=== PATIENT | male | born 1950 | race Caucasian/White ===

== ENCOUNTER → 2024-03-09 11:28 | Outpatient (REF) | payer OTHER, SELFPAY | LOC: HWRAD 11:28 | PROVIDERS: ATTENDING PHYSICIAN Internal Medicine Critical Care Medicine; FAMILY PHYSICIAN Family Medicine | DX: R09.02 Hypoxemia (principal) | CPT/HCPCS: 71250 ==

== ENCOUNTER 2024-08-05 16:51 | Inpatient (IN) | payer OTHER, SELFPAY ==
[2024-08-05] VITALS (11 sets, daily range): BP systolic 108–152; BP diastolic 49–108; BMI 27.9
--- NOTE | 2024-08-05 13:49 | ED.GENMED ---
History of Present Illness
General
Chief Complaint: Breathing Problem
Time Seen by Provider: 08/05/24 13:47
History of Present Illness
History of Present Illness:
TIME OF INITIAL ENCOUNTER: 1:45 PM
HPI: The patient comes in from home by ambulance. Family called due to shortness of breath and he was also feeling generally weak. He has a history of COPD and CHF. EMS noted wheezing and he was given a nebulizer treatment. He was also found to
have sats of 84% on his normal 2 to 3 L/min of oxygen. They also placed him on a nonrebreather prior to arrival and he now feels somewhat improved.
EXAM:
GENERAL: The patient is somewhat ill-appearing
HEENT: Moist oral mucosa
CARDIOVASCULAR: No murmurs, normal heart rate, regular rhythm, No chest wall tenderness
PULMONARY: Mild respiratory distress with conversational dyspnea, we took him off the nonrebreather mask, prolonged expiratory phase with wheeze diffusely
ABDOMEN: Soft with no peritoneal signs, no tenderness
NEUROLOGIC: Excellent strength all extremities, no coordination deficits
PSYCHIATRIC: Appropriate mental status, normal insight and judgement
EXTREMITIES: Nontender, 2+ bilateral lower extremity edema, moves all extremities equally
SKIN: No rash, no lesions
NUMBER AND COMPLEXITY OF PROBLEMS ADDRESSED AT THE ENCOUNTER
� Chronic conditions affecting care: COPD and CHF
� Acute Exacerbation and/or Progression of Chronic Illness: This is an acute exacerbation of a chronic problem
� Differential Diagnosis includes: COPD exacerbation, CHF exacerbation, ACS, Pneumonia
AMOUNT AND/OR COMPLEXITY OF DATA TO BE REVIEWED AND ANALYZED
� I performed an independent evaluation of and my interpretation is:
EKG:
CT:
X-rays: CXR suggests pulm vasc congestion
Laboratory Studies: WBC 10.9, Bicarb 42, gluc 222, BNP 2900
Other:
� Review of other/old records: The patient had a CAT scan of his chest due to hypoxia with COPD 5 months ago which showed nonspecific interstitial fibrotic changes, prior left upper lobectomy
� Clinical information was obtained by an independent historian: I spoke to EMS upon arrival
� Prescriptions/Medications Considered but not given:
� Further testing considered but not performed:
RISK OF COMPLICATIONS AND/OR MORBIDITY OR MORTALITY OF PATIENT MANAGEMENT
� Social determinants of health affecting care: Lives at home
� Discussion with other providers: Hospitalist for admission
� Escalation of care including admission/observation vs risk of discharge considered: Will give additional DuoNebs here as well as IV steroids.
ANY OTHER UPDATES:
4 PM: I reassessed patient. Overall sickly improved compared to time of arrival. We also gave Lasix as there likely is a component of heart failure as well.
Phy Exam
Physical Exam
Physical Exam:
See HPI
Scores
Heart Failure Risk
Heart Failure Risk Score: Not Applicable
Course
Orders/Labs/Results
Orders:
Orders
08/05/24 13:47
Dexamethasone Sod Phosphate [Decadron] 10 mg IV NOW STA
Ipratropium/Albuterol Sulfate [Duoneb] 3 ml INH R NOW ONE
Ipratropium/Albuterol Sulfate [Duoneb] 3 ml INH R NOW ONE
08/05/24 13:48
CR Chest Portable - 1 View Urgent
Comment:
Reason For Exam: sob copd chf
Reason Study Needs to be Portable: Patient Unstable
08/05/24 13:50
Complete Blood Count/With Diff Urgent
Comprehensive Metabolic Panel Urgent
NT-proBNP Urgent
Troponin I Urgent
08/05/24 15:40
Furosemide [Lasix] 40 mg IV NOW STA
08/05/24 16:19
Admit/Transfer Patient As Directed
Co-Sign Provider:
Level of Care: Inpatient admission
Assign to:: IMU- Intermediate Care
Physician / Group: Jose R
Diagnosis: Hypoxia, CHF
Reason for Hospitalization: IV diuretics
Expected length of stay greater than two midnights?: Yes
ELOS- Estimated Length of Stay in days: 3
I certify the patient meets the requirements for IP care: Yes
PRN Pain Medication Management As Directed
May give lesser potent ordered pain med per pt: Yes
preference::
Protocol:: Medication orders for pain may be administered in a
manner that supports deferring to patient preference
when the pt is:
- Requesting an ordered lesser potent pain medication.
Least to most potent pain medications are defined
as: acetaminophen < NSAID < tramadol < opioids
(morphine, oxycodone, hydromorphone).
- Requesting a lesser dose of the same medication IF
ORDERED.
- Requesting a less intrusive route of administration
if both routes are prescribed by the provider (PO <
IV).
08/05/24 16:25
Code Status As Directed
Resuscitation Status: Full Code
08/05/24 16:36
ECG [Electrocardiogram (*1)] Urgent
Reason for Study: Heart Failure, Left
Cardiology Consult: Johny Shaffer
08/05/24 16:45
Peripheral Venous Lwr Ext Bilat US [US Periph Venous LOWER Ext Donovan] Urgent
Comment:
Reason For Exam: bilateral lower extremity edema
08/05/24 20:00
Troponin I Q8H
08/06/24 04:00
Troponin I Q8H
Abnormal Lab Results
08/05/24
13:50
WBC 10.9 H 10^3/uL
(4.8-10.8)
RBC 4.42 L 10^6/uL
(4.70-6.10)
Hgb 10.8 L g/dL
(13.0-18.0)
Hct 37.8 L %
(39.0-52.0)
MCH 24.4 L pg
(27.0-31.0)
MCHC 28.6 L g/dL
(33.0-37.0)
RDW 14.8 H %
(11.5-14.5)
Abs Immat Gran (auto) 0.1 H 10^3/uL
(0-0.05)
Absolute Neuts (auto) 7.3 H 10^3/uL
(1.4-6.5)
Absolute Monos (auto) 1.1 H 10^3/uL
(0.1-0.6)
Immature Gran % 0.6 H %
(0-0.5)
Lymphocytes % 17.6 L %
(20.5-51.1)
Monocytes % 9.7 H %
(1.7-9.3)
Chloride 90 L mmol/L
(98-107)
Carbon Dioxide 42 H mmol/L
(22-30)
Glucose 222 H mg/dl
(70-99)
Albumin 3.2 L g/dl
(3.5-5.0)
08/05/24 13:50
08/05/24 13:50
Vital Signs
Initial and Last Documented VS:
Initial Vital Signs
Pulse Resp BP Pulse Ox
104 20 151/108 84
08/05/24 13:50 08/05/24 13:50 08/05/24 13:50 08/05/24 13:50
Last Documented Vital Signs
Temp Pulse Resp BP Pulse Ox
98.3 F 106 16 152/57 93
08/05/24 13:51 08/05/24 14:45 08/05/24 14:45 08/05/24 14:00 08/05/24 14:45
*Critical Care Note
Total Time (30-74mins, 75-104mins- exclusive of procedures): Not Applicable
ED Attending Note
-
Portions of this chart may have been created with voice recognition software.� Occasional wrong word or��sound alike� substitutions may have occurred due to the inherent limitations of voice recognition software.
Discharge Plan
Departure
Patient Disposition: Admit
Date of Disposition: 08/05/24
Time of Disposition: 15:58
Presentation/result/management discussed w/ accepting MD/DO: Hospitalist
Discharge Problem:
COPD exacerbation
Interventions
Interventions:
*Risk Screen - Suicide Last Done: 08/05/24 13:51
*General Assessment Last Done: 08/05/24 13:51
*Neglect/Abuse Screening Last Done: 08/05/24 13:51
ED- Fall Risk Assessment Last Done: 08/05/24 13:59
*ED COVID-19 Vaccine History Last Done: 08/05/24 14:00
ED- Cardiac Assessment Last Done: 08/05/24 13:59
ED- Pulmonary Assessment Last Done: 08/05/24 13:59
[2024-08-05] MEDS: DECADRON 10 MG IV (13:55)
[2024-08-05] MEDS: DUONEB 3 ML INH ×3 (13:56→19:37)
[2024-08-05 14:05] LABS: % Basophils 0.6 % (0-2); % Eosinophils 4.2 % (0-6); % Immature Granulocytes 0.6 % (0-0.5); % Lymphocytes 17.6 % (20.5-51.1); % Monocytes 9.7 % (1.7-9.3); % Neutrophils 67.3 % (42.2-75.2); Absolute Basophils 0.1 10^3/uL (0-0.2); Absolute Eosinophils 0.5 10^3/uL (0-0.7); Absolute Immature Granulocytes 0.1 10^3/uL (0-0.05); Absolute Lymphocytes 1.9 10^3/uL (1.2-3.4); Absolute Monocytes 1.1 10^3/uL (0.1-0.6); Absolute Neutrophils 7.3 10^3/uL (1.4-6.5); Hematocrit 37.8 % (39.0-52.0); Hemoglobin 10.8 g/dL (13.0-18.0); Mean Corp Hgb Conc. 28.6 g/dL (33.0-37.0); Mean Corpuscular Hgb 24.4 pg (27.0-31.0); Mean Corpuscular Volume 85.5 fL (80.0-94.0); Mean Platelet Volume 8.8 fL (7.4-10.4); Nucleated Red Blood Cells % 0 % (-); Platelet Count 343 10^3/uL (130-400); Red Blood Cell Count 4.42 10^6/uL (4.70-6.10); Red Cell Dist. Width 14.8 % (11.5-14.5); White Blood Cell Count 10.9 10^3/uL (4.8-10.8)
[2024-08-05 14:11] LABS: ALT (SGPT) 15 U/L (0-50); AST (SGOT) 28 U/L (17-59); Albumin 3.2 g/dl (3.5-5.0); Alkaline Phosphatase 94 U/L (38-126); Blood Urea Nitrogen 16 mg/dl (9-20); Calcium 8.8 mg/dl (8.4-10.2); Chloride 90 mmol/L (98-107); Estimated Creatinine Clearance 64 ml/min; Glucose 222 mg/dl (70-99); Potassium 4.1 mmol/L (3.5-5.1); Sodium 143 mmol/L (135-145); Total Bilirubin 0.3 mg/dl (0.2-1.3); Total Protein 6.4 g/dl (6.3-8.2); eGFR > 60.00
[2024-08-05 14:30] LABS: NT-proBNP 2900 pg/ml; Troponin I 0.028 ng/ml
[2024-08-05 15:13] LABS: Carbon Dioxide 42 mmol/L (22-30)
[2024-08-05] MEDS: LASIX 40 MG IV (15:52)
--- NOTE | 2024-08-05 16:22 | CON.CAR ---
Addendum entered and electronically signed by Johny Tolbert MD 08/05/24 17:52:
I saw and examined the patient.
The Infectious Disease Physician's note was reviewed and I agree with the note.
Comment: Briefly, 73-year-old man past medical history of heart failure with preserved ejection fraction, prior AVR, known CAD with prior [place], CVA with residual right-sided deficit as well as COPD on home O2 who presents with worsening dyspnea
concerning for decompensated heart failure.
The patient has told me that over the past several days he has developed mild lower extremity edema
Worsening dyspnea as well as orthopnea over this time
Appears volume overloaded on exam and proBNP is elevated all in keeping with CHF
Plan for IV diuresis twice daily
Follow daily weights, renal function/electrolytes
Check echo in a.m.
Tentative plan to interrogate pacemaker to assess for arrhythmia as a cause of his decompensation
Will reach out to his primary felt carbonizer to request records
Rest per Jami Anne
Original Note:
Consultation
Consultation Request
Date/Time Consultation Requested: 08/05/24
Date/Time Consultation Performed: 08/05/24
Requesting Provider: Nadeen Harley PA-C
Performing Provider: Jami Anne PA-C for Dr. Tolbert
Reason for Consultation: CHF
Medical History
-
Chief Complaint: SOB
History of Present Illness:
PMH:
chronic HFpEF
COPD/emphysema
h/o AVR 2010 and redo AVR with root repair 2012
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
CAD with MIs 2008, 2012, details unknown
AAA repair 2008
DM 2
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
Ambulatory dysfunction, walks with walker
s/p Medtronic PPM
Reported severe hemoptysis in setting of PNA 04/2024
RA on chronic prednisone
Daily narcotics for pain
Depression/anxiety
Past Medical History
Past Medical History: Other (in HPI)
Past Surgical History: Cardiac (AAA repair 2008, s/p AVR 2010, s/p AVR and root repair 2012, s/p Medtronic PPM 2012)
Social History
Tobacco: Former Smoker
Alcohol: None
Drug: Other (daily narcotics for pain control)
Personal:
Living: With Family
Employment: Retired
Family History
Family History: CAD
Allergies / Home Medications
Allergy/AdvReac Type Severity Reaction Status Date / Time
tetracycline Allergy Unknown Unknown Verified 08/05/24 14:26
adalimumab [From Humira] Allergy Unknown Verified 08/05/24 14:27
Cephalosporins Allergy Unknown Verified 08/05/24 13:49
clarithromycin Allergy Unknown Verified 08/05/24 14:26
doxycycline Allergy Unknown Verified 08/05/24 14:26
etanercept [From Enbrel] Allergy Unknown Verified 08/05/24 14:27
hydromorphone [From Dilaudid] Allergy Unknown Verified 08/05/24 14:26
infliximab [From Remicade] Allergy Unknown Verified 08/05/24 14:27
latex Allergy Unknown Verified 08/05/24 14:26
lorazepam Allergy Unknown Verified 08/05/24 14:26
methotrexate Allergy Unknown Verified 08/05/24 14:26
penicillin G Allergy Unknown Verified 08/05/24 13:49
Penicillins Allergy Unknown Verified 08/05/24 13:49
red dye Allergy Unknown Verified 08/05/24 14:26
Sulfa (Sulfonamide Allergy Unknown Verified 08/05/24 13:49
Antibiotics)
sulfamethoxazole Allergy Unknown Verified 08/05/24 14:26
[From Bactrim]
sulfisoxazole Allergy Unknown Verified 08/05/24 13:49
trimethoprim [From Bactrim] Allergy Unknown Verified 08/05/24 14:26
�Medication �Instructions �Recorded �Confirmed �Type
aspirin 81 mg tablet,delayed 81 mg PO DAILY 08/05/24 08/05/24 History
release
budesonide 160 mcg-glycopyr 9 2 inh inhalation R BID 08/05/24 08/05/24 History
mcg-formot 4.8 mcg/actuation HFA
inhaler (Breztri Aerosphere)
clopidogrel 75 mg tablet 75 mg PO DAILY 08/05/24 08/05/24 History
diazepam 5 mg tablet 5 mg PO QID 08/05/24 08/05/24 History
diltiazem HCl 240 mg 240 mg PO DAILY 08/05/24 08/05/24 History
capsule,extended release 24 hr
ezetimibe 10 mg tablet 10 mg PO HS 08/05/24 08/05/24 History
finasteride 5 mg tablet 5 mg PO DAILY 08/05/24 08/05/24 History
furosemide 40 mg tablet 40 mg PO DAILY 08/05/24 08/05/24 History
insulin aspart U-100 100 unit/mL 0 sliding scale dose SC MEALS 08/05/24 08/05/24 History
(3 mL) subcutaneous pen (Novolog
FlexPen U-100 Insulin aspart)
insulin glargine 100 unit/mL (3 15 - 30 unit SC HS 08/05/24 08/05/24 History
mL) subcutaneous pen (Lantus
Solostar U-100 Insulin)
methadone 10 mg tablet 20 mg PO BID 08/05/24 08/05/24 History
mirtazapine 30 mg disintegrating 30 mg translingual HS 08/05/24 08/05/24 History
tablet
omeprazole 20 mg capsule,delayed 20 mg PO DAILY 08/05/24 08/05/24 History
release
oxycodone 10 mg tablet 10 mg PO TID 08/05/24 08/05/24 History
paroxetine HCl 20 mg tablet 20 mg PO DAILY 08/05/24 08/05/24 History
pravastatin 20 mg tablet 20 mg PO HS 08/05/24 08/05/24 History
prednisone 10 mg tablet 10 mg PO DAILY 08/05/24 08/05/24 History
quetiapine 200 mg tablet 200 mg PO HS 08/05/24 08/05/24 History
roflumilast 500 mcg tablet 500 mcg PO DAILY 08/05/24 08/05/24 History
tamsulosin 0.4 mg capsule 0.4 mg PO HS 08/05/24 08/05/24 History
Review of Systems
-
History Source: Patient and Family
All other systems: Negative unless noted
Physical Exam
Vital Signs
Temp Pulse Resp BP Pulse Ox
98.3 F 106 16 152/57 93
08/05/24 13:51 08/05/24 14:45 08/05/24 14:45 08/05/24 14:00 08/05/24 14:45
Lab Results
08/05/24 13:50
08/05/24 13:50
Troponin I 0.028 ng/ml 08/05/24 13:50
Gkw-H-Jihhxqlolbj Pept 2900 pg/ml 08/05/24 13:50
Physical Exam
General: No Apparent Distress and Other (chronically ill appearing. on supp O2)
HEENT: Normocephalic, Anicteric and Moist Mucous Membranes
Respiratory: Wheezes
Cardiac: S1/S2 and Regular Rhythm
GI: Soft, Non Tender and Distended (mild)
Musculoskeletal: No Clubbing, No Cyanosis and Edema (1+ edema of B/L LE)
Skin: Warm, Dry and Other (thin skin with ecchymoses consistent with chronic steroid use)
Neuro: AO x 3
Impression / Plan
-
PCP: Dr. Cassia Mckeon
Cardiology: Dr. Edmonds at [facility]
Impression:
Acute on chronic hypoxic respiratory failure, chronically on 2-3L NC
Acute on chronic HFpEF
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
h/o AVR 2010 and redo AVR with root repair 2012
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
CAD with MIs 2012, details unknown
AAA s/p EVAR 2008
PAF, not OAC candidate given reported severe hemoptysis in setting of PNA 04/2024
DM 2
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
Ambulatory dysfunction, walks with walker
heart block s/p Medtronic PPM
RA on chronic prednisone
Daily narcotics for pain
Depression/anxiety
Echo 04/27/24 at [facility]: TDS, EF 55-60, mild concentric LVH, aortic valve not well visualized, ascending aorta mildly dilated at 3.6 cm, trivial pericardial effusion
Plan:
-[facility] with increased SOB and dizziness starting last evening and is being admitted with acute HF and cardiology has been consulted. Patient lives in [place] and follows with Dr. Edmonds at [facility], patient has never been to
before. Patient is chronically on aspirin and Plavix for h/o CVA. He was not felt to be candidate for OAC given hemoptysis in setting of PNA 04/2024. He is also felt to be high risk candidate for watchman. Patient is chronically on Lasix 40 mg PO
daily, EF preserved by last echo 04/2024 as above. pro-BNP is 2900 and CXR with vascular congestion. He reports some LE edema and wheezing. Patient is chronically on oxygen at 2 L NC, but initially required NRB in ER, now requiring 5 L. Patient also
reportedly has a history of AVR in 2010 followed by redo AVR and aortic root repair in 2012 that was complicated by [place] and NATA with transient dialysis for months, but renal function recovered. He also had his Medtronic PPM placed at that time.
-Obtained and reviewed records from Dr. Edmonds' office including last echo 04/27/24, EKG and office visit 06/11/24.
-Will interrogate Medtronic PPM
-Check echo, last from 04/2024 as above
-ECG not ordered in the ER, will order now and then review
-IV lasix. prior to admission was on 40mg po daily, however this was decreased from 80mg daily as of 04/2024 per .
-continue treatment for COPD per primary service. not BB candidate due to COPD.
-CHF education
-wean supp O2 as able
-PT/OT
-d/w patient and at bedside
Data Reviewed
-
Radiology: Report Reviewed by me
Medical Tests (Nuc Med, Echo etc): Report Reviewed by me
Labs: Labs Reviewed by me
Old Records: Requested and Reviewed
--- NOTE | 2024-08-05 16:41 | HPS.HSE ---
Addendum entered and electronically signed by Abhijit Odell MD 08/05/24 17:07:
I saw and examined the patient.
The JOB SITE SUPERVISOR's note was reviewed and I agree with the note.
Comment:
73-year-old male with extensive past medical history of recent CVA, CHF, hypertension, diabetes, chronic hypoxic respiratory deficiency, severe COPD who is presenting from home with shortness of breath. Patient was found to be severely hypoxic at
home. Patient spouse called EMS and patient was seen in the ER. Patient was found to severe lower extremity edema. Patient stated his breathing is improved after receiving bronchodilators steroids and IV Lasix. Patient is unsteady on his feet
and is unable to weigh himself daily.
General: Well Developed and Well Nourished, waking up and starting to have Conversation
HEENT: Anicteric, Moist mucous membranes and Oxygen (Nasal Cannula)
Respiratory: Other (Decreased breath sounds throughout; Few faint wheezes)
Cardiac: S1/S2, Regular Rhythm and Murmur
GI: Soft and Non Tender
Rectal: Deferred by Provider
Musculoskeletal: No Clubbing, No Cyanosis and Other (+2 pitting edema bilateral lower extremities)
Skin: Warm, Dry and Other (Significant bruising bilateral upper extremities)
Neuro: Chronic right hemiparesis, waking up now and states he wants water. following commands
Psych: Calm
Impression
Acute on chronic hypoxic respiratory failure likely multifactorial secondary to COPD exacerbation and acute on chronic heart failure exacerbation
History of severe COPD with suspected chronic hypercapnic respiratory failure
Stroke with residual deficit
Hypertension
Hyperlipidemia
Diabetes mellitus insulin-dependent
Anxiety/depression
Rheumatoid arthritis
Chronic steroid therapy
BPH
Chronic opioid dependent on daily basis
Plan
Start patient 40 mg IV Lasix twice daily
Check echocardiogram
Trend troponin
Wean oxygen as ordered
Start patient on high-dose steroids
Continue with bronchodilators
Pulmonary evaluation
Chest x-ray noted
As patient acute on chronic hypoxic respiratory failure hold high-dose of Seroquel/diazepam and change oxycodone to as needed
Check lower extremity venous Doppler
Continue with antiplatelet agents
Monitor on telemetry for arrhythmias
Full code
Monitor in IMU for 24 hours and reevaluate
I spent a total of 78 minutes with the patient or on the floor. More than 50% of this time involved counseling and coordination of care.
Original Note:
Family Physician
-
Family Physician: Cassia Mckeon
Chief Complaint
-
Shortness of Breath
History of Present Illness
Patient is a 73 y/o male past medical history of Stroke, CHF, HTN, DM, and Chronic Hypoxia secondary to Severe COPD who presents with shortness of breath. Most of history is obtained from patient's at the bedside. This morning patient was
more difficult to arouse and appeared short of breath. She noted his pulse ox to be in the 50s. She attempt to place him on his BiPAP without much improved in pulse ox only up to the 60s. She increased his supplemental oxygen and was able to get
his pulse ox up to 85%. After discussion with his physician she called EMS to bring him to the emergency department. Spouse has noted increased lower extremity edema for the past few days. Patient does not weight himself regularly as he is very
unsteady on his feet. Spouse notes that patient's diuretic dose was decreased over the summer. Patient denies any chest pain.
Medical History
Past Medical History
Past Medical History: Reports Other
Additional Past Medical History:
Stroke with Residual Right Hemiparesis
Abdominal Aortic Aneurysm
Congestive Heart Failure
Essential Hypertension
Hyperlipidemia
Diabetes Mellitus, Type II
COPD
Anxiety/Depression
Cognitive Impairment
Rheumatoid Arthritis
Chronic Pain with Opioid Dependence
BPH
Past Surgical History: Reports Other
Additional Past Surgical History:
AAA Repair
Aortic Valve Replacement
Permanent Pacemaker
Bilateral Cataracts
Social History
Tobacco: Former Smoker (40 pack years - Quit about 5 years ago)
Alcohol: Former (Sober since 1978)
Personal:
Living: With Family
Family History
Family History: Not pertinent
Allergies / Home Medications
Allergies reflects when Allergies were last updated in [facility] EHR.
Home Medications with original date entered in [facility] EHR
Allergy/Medication List:
Allergies
Allergy/AdvReac Type Severity Reaction Status Date / Time
tetracycline Allergy Unknown Unknown Verified 08/05/24 14:26
adalimumab [From Humira] Allergy Unknown Verified 08/05/24 14:27
Cephalosporins Allergy Unknown Verified 08/05/24 13:49
clarithromycin Allergy Unknown Verified 08/05/24 14:26
doxycycline Allergy Unknown Verified 08/05/24 14:26
etanercept [From Enbrel] Allergy Unknown Verified 08/05/24 14:27
hydromorphone [From Dilaudid] Allergy Unknown Verified 08/05/24 14:26
infliximab [From Remicade] Allergy Unknown Verified 08/05/24 14:27
latex Allergy Unknown Verified 08/05/24 14:26
lorazepam Allergy Unknown Verified 08/05/24 14:26
methotrexate Allergy Unknown Verified 08/05/24 14:26
penicillin G Allergy Unknown Verified 08/05/24 13:49
Penicillins Allergy Unknown Verified 08/05/24 13:49
red dye Allergy Unknown Verified 08/05/24 14:26
Sulfa (Sulfonamide Allergy Unknown Verified 08/05/24 13:49
Antibiotics)
sulfamethoxazole Allergy Unknown Verified 08/05/24 14:26
[From Bactrim]
sulfisoxazole Allergy Unknown Verified 08/05/24 13:49
trimethoprim [From Bactrim] Allergy Unknown Verified 08/05/24 14:26
Home Medications
aspirin 81 mg tablet,delayed release 81 mg PO DAILY 08/05/24
budesonide 160 mcg-glycopyr 9 mcg-formot 4.8 mcg/actuation HFA inhaler (Breztri Aerosphere) 2 inh inhalation R BID 08/05/24
clopidogrel 75 mg tablet 75 mg PO DAILY 08/05/24
diazepam 5 mg tablet 5 mg PO QID 08/05/24
diltiazem HCl 240 mg capsule,extended release 24 hr 240 mg PO DAILY 08/05/24
ezetimibe 10 mg tablet 10 mg PO HS 08/05/24
finasteride 5 mg tablet 5 mg PO DAILY 08/05/24
furosemide 40 mg tablet 40 mg PO DAILY 08/05/24
insulin aspart U-100 100 unit/mL (3 mL) subcutaneous pen (Novolog FlexPen U-100 Insulin aspart) 0 sliding scale dose SC MEALS 08/05/24
insulin glargine 100 unit/mL (3 mL) subcutaneous pen (Lantus Solostar U-100 Insulin) 15 - 30 unit SC HS 08/05/24
methadone 10 mg tablet 20 mg PO BID 08/05/24
mirtazapine 30 mg disintegrating tablet 30 mg translingual HS 08/05/24
omeprazole 20 mg capsule,delayed release 20 mg PO DAILY 08/05/24
oxycodone 10 mg tablet 10 mg PO TID 08/05/24
paroxetine HCl 20 mg tablet 20 mg PO DAILY 08/05/24
pravastatin 20 mg tablet 20 mg PO HS 08/05/24
prednisone 10 mg tablet 10 mg PO DAILY 08/05/24
quetiapine 200 mg tablet 200 mg PO HS 08/05/24
roflumilast 500 mcg tablet 500 mcg PO DAILY 08/05/24
tamsulosin 0.4 mg capsule 0.4 mg PO HS 08/05/24
Review of Systems
-
Unable to obtain full review of systems at this time due to: Acuity
Physical Exam
Vital Signs
Vital Signs
Temp Pulse Resp BP Pulse Ox
98.3 F 106 16 152/57 93
08/05/24 13:51 08/05/24 14:45 08/05/24 14:45 08/05/24 14:00 08/05/24 14:45
Physical Exam
General: Well Developed and Well Nourished
HEENT: Anicteric, Moist mucous membranes and Oxygen (Nasal Cannula)
Respiratory: Other (Decreased breath sounds throughout; Few faint wheezes)
Cardiac: S1/S2, Regular Rhythm and Murmur
GI: Soft and Non Tender
Rectal: Deferred by Provider
Musculoskeletal: No Clubbing, No Cyanosis and Other (+3 pitting edema bilateral lower extremities)
Skin: Warm, Dry and Other (Significant bruising bilateral upper extremities)
Neuro: Other (Patient opens his eyes to name, but drifts off quickly. Chronic right hemiparesis)
Psych: Calm
Laboratory Results
-
08/05/24 13:50
08/05/24 13:50
Laboratory Results
Total Bilirubin 0.3 mg/dl (0.2-1.3) 08/05/24 13:50
AST 28 U/L (17-59) 08/05/24 13:50
ALT 15 U/L (0-50) 08/05/24 13:50
Alkaline Phosphatase 94 U/L (38-126) 08/05/24 13:50
Troponin I 0.028 ng/ml 08/05/24 13:50
Chest X-Ray:
1. Mild interstitial prominence suggestive of pulmonary vascular congestion.
2. Patchy bibasilar opacities, right greater than left. Findings may be reflective of alveolar pulmonary edema, pneumonia, or subsegmental atelectasis.
Data Reviewed
-
Diagnostic Radiology: Report Reviewed by me
Lab Data: Labs Reviewed by me
Impression/Plan
-
Acute on Chronic Hypoxic Respiratory Failure secondary to Acute Heart Failure +/- COPD Exacerbation
-Continue supplemental oxygen
Acute on Chronic Heart Failure, unknown type
-Consult Cardiology
-Check Echocardiogram
-Check lower extremity Doppler
-Continue Lasix 40mg IV BID
-Monitor Is&Os and Daily Weights
Severe COPD, possible component of acute exacerbation
-Consult Pulmonary
-Patient received Decadron 10mg IV in ED - Transition to Prednisone 40mg Daily
-Continue Pulmicort Neb
-Continue DuoNeb QID and PRN
Stroke with Residual Right Hemiparesis
-Continue Aspirin and Plavix
Essential Hypertension
-Continue Diltiazem
Hyperlipidemia
-Continue Zetia and Pravastatin
Diabetes Mellitus, Type II
-Continue Lantus and NovoLog
-Monitor sugars and continue coverage insulin
Anxiety/Depression/Insomnia
-Hold diazepam and Seroquel until patient is more awake
-Continue Remeron and Paxil
Rheumatoid Arthritis
Chronic Pain with Opioid Dependence
-Continue methadone
-Change oxycodone to prn until mentation improves
BPH
-Continue finasteride and Flomax
Hx Abdominal Aortic Aneurysm s/p Repair
Code Status: Full Code
--- NOTE | 2024-08-05 18:41 | PTCARENOTE ---
Pt received from ED on stretcher. Aox2, not place. Wound care completed, consult placed to [facility] nurse for middle back wound. Pt reports he has had wound over 30 years and is unsure of origin.
[2024-08-05] MEDS: PULMICORT 0.5 MG INH (19:37)
[2024-08-05 20:36] LABS: Troponin I 0.037 ng/ml
--- NOTE | 2024-08-05 20:45 | PTCARENOTE ---
troponin of 0.037. FREIGHT TALLIER notified. Pt denies chest pain. Pt AAOx3. EKG obtained and repeat troponin placed for 0200.
--- NOTE | 2024-08-05 20:45 | PTCARENOTE ---
Pt had ordered insulin listed in the MAR scheduled for 18:10, these being 5 units of novolog and SC novolog, that had not yet been administered when receiving Pt at change of shift. Before administering the ordered insulin, this RN preformed a
bedside accu check, to which the results read 'RR HIGH', this RN notified the PHLEBOTOMIST, and placed a venous glucose lab order per protocol.
[2024-08-05 20:47] LABS: Glucose - Point of Care 462 mg/dl (70-99)
[2024-08-05 21:35] LABS: Glucose 505 mg/dl (70-99)
[2024-08-05] MEDS: NOVOLOG FLEXPEN SC (21:50)
[2024-08-05] MEDS: NOVOLOG FLEXPEN 14 UNITS SC (21:51)
[2024-08-05] MEDS: NOVOLOG FLEXPEN-HIGH RESISTANCE SC (21:51)
--- NOTE | 2024-08-05 21:51 | PTCARENOTE ---
Venous Glucose 505. MANAGER ASSEMBLY notified. order received for 1 time dose for 14 units of novolog. medication administered. Per protocol bedside glucose is to be rechecked in 2 hours from administration.
[2024-08-05] MEDS: LOVENOX 40 MG SC (22:06)
[2024-08-05] MEDS: DOLOPHINE 20 MG PO (22:08)
[2024-08-05] MEDS: PRAVACHOL 20 MG PO (22:38)
[2024-08-05] MEDS: ZETIA 10 MG PO (22:38)
[2024-08-05] MEDS: LANTUS 0.15 UNITS SC (22:38)
[2024-08-05] MEDS: FLOMAX 0.4 MG PO (22:38)
[2024-08-05 22:43] LABS: Glucose - Point of Care 490 mg/dl (70-99)
[2024-08-05] MEDS: REMERON ODT 30 MG PO (23:21)
[2024-08-06] VITALS (17 sets, daily range): BP systolic 82–137; BP diastolic 54–108; PULSE 89–93; O2SAT 91–92; BMI 27.2; BMI 27.9
[2024-08-06] LABS: Glucose - Point of Care 466 mg/dl (70-99)
[2024-08-06 00:44] LABS: Glucose 453 mg/dl (70-99)
[2024-08-06] MEDS: NOVOLOG FLEXPEN 12 UNITS SC (01:16)
[2024-08-06 02:40] LABS: Troponin I 0.019 ng/ml
[2024-08-06 03:39] LABS: Glucose - Point of Care 353 mg/dl (70-99)
[2024-08-06 05:23] LABS: Hematocrit 32.2 % (39.0-52.0); Hemoglobin 9.6 g/dL (13.0-18.0); Mean Corp Hgb Conc. 29.8 g/dL (33.0-37.0); Mean Corpuscular Hgb 24.6 pg (27.0-31.0); Mean Corpuscular Volume 82.6 fL (80.0-94.0); Platelet Count 315 10^3/uL (130-400); Red Cell Dist. Width 14.6 % (11.5-14.5); White Blood Cell Count 5.3 10^3/uL (4.8-10.8)
[2024-08-06 05:44] LABS: Blood Urea Nitrogen 21 mg/dl (9-20); Calcium 8.4 mg/dl (8.4-10.2); Chloride 88 mmol/L (98-107); Estimated Creatinine Clearance 72 ml/min; Glucose 297 mg/dl (70-99); Magnesium 2.1 mg/dl (1.6-2.3); Potassium 4.4 mmol/L (3.5-5.1); Sodium 140 mmol/L (135-145); eGFR > 60.00
[2024-08-06 06:04] LABS: Carbon Dioxide 44 mmol/L (22-30)
[2024-08-06 06:13] LABS: TSH Reflex To Free T4 0.33 uIU/ml (0.47-4.68)
[2024-08-06 06:42] LABS: Free T4 1.12 ng/dl (0.78-2.19)
[2024-08-06] MEDS: DUONEB 3 ML INH ×3 (07:14→19:17)
[2024-08-06] MEDS: PULMICORT 0.5 MG INH ×2 (07:15→19:17)
[2024-08-06 08:08] LABS: Glucose - Point of Care 232 mg/dl (70-99)
[2024-08-06] MEDS: NOVOLOG FLEXPEN 5 UNITS SC (08:11)
[2024-08-06] MEDS: NOVOLOG FLEXPEN-HIGH RESISTANCE 4 UNITS SC ×3 (08:11→16:23)
[2024-08-06] MEDS: CARDIZEM CD 240 MG PO (08:12)
[2024-08-06] MEDS: ASPIR LOW (ENTERIC COATED) 81 MG PO (08:13)
[2024-08-06] MEDS: DALIRESP 500 MCG PO (08:13)
[2024-08-06] MEDS: DOLOPHINE 20 MG PO ×2 (08:13→19:35)
[2024-08-06] MEDS: PROTONIX 40 MG PO (08:13)
[2024-08-06] MEDS: DELTASONE 40 MG PO (08:13)
[2024-08-06] MEDS: PAXIL 20 MG PO (08:13)
[2024-08-06] MEDS: PLAVIX 75 MG PO (08:13)
[2024-08-06] MEDS: LASIX 40 MG IV ×2 (08:14→16:20)
[2024-08-06] MEDS: PROSCAR 5 MG PO (08:14)
--- NOTE | 2024-08-06 08:32 | PN.DE.MGMTRT ---
Insulin Management
- -
08/06/2024 Diabetes Management Consult
Patient admitted with c/o SOB/weakness - COPD exacerbation with chf. PMH: COPD, CHF, diabetes, CAD with prior TX, CVA with R sided residual deficit, daily narcotic us for pain control, depression/anxiety.
Prior to admission patient was taking 15 to 30 units of lantus @ HS with ss novolog AC. A1C pending, cr .8, eGFR > 60.
Patient was off the unit for testing, I spoke with patient . She states she gives patient all insulin and tests his glucose. She states sometimes she give lantus 15 @ hs but if glucose is elevated she may give him 30 units. The novolog she
uses a ss.
08/05 glucose range 222 to 505. Patient received one time dose of 10 mg dexamethasone @ 2pm and one time doses of novolo:30 glucose 490 received 14 units novolog, 12:08am glucose 453 received 12 units novolog; and Lantus 15 units @ HS.
08/06 Fasting glucose 232 received 5 units novolog + corrective insulin 4 units, pre lunch glucose 221. Patient ordered prednisone [address] Odell has increased AC novolog to 9 units and HS lantus to 22 units.
Will follow.
Diabetes History
- -
Type of Diabetes: 2 requiring insulin
Pre-Admission Diabetes Regimen
08/05/24 08/06/24
13:50 05:06
Creatinine 0.9 0.8
Insulin Pump Settings
IP Diabetes Regimen
08/05/24 08/05/24 08/05/24
13:50 20:36 21:13
Glucose 222 H 505 H*
POC Glucose 462 H*
08/05/24 08/05/24 08/06/24
22:30 23:50 00:08
Glucose 453 H*
POC Glucose 490 H* 466 H*
08/06/24 08/06/24 08/06/24
03:28 05:06 07:57
Glucose 297 H
POC Glucose 353 H 232 H
Patient Education
[2024-08-06 08:38] LABS: Glycohemoglobin (HgbA1c) 6.7 % (4.0-5.6)
--- NOTE | 2024-08-06 09:25 | WOUNDNOTE ---
[facility] RN note: Patient admitted with hypoxia, CHF. Patient lives with his spouse.
See H&P for complete history.
PMH: CVA, CHF, IDDM, HTN, COPD, RA, anxiety/depression, on chronic steroid therapy, BPH, chronic opioid use, former smoker, former ETOH use, obesity.
Wound Location and type/assessment: Patient admitted with: mid back depressed scar from previous cyst with matter in it. Does not appear to be an active cyst. Coccyx/buttocks skin dull red/purple. Sacral/coccyx blanchable dull purple. Mild scrotal
MASD. L lateral ankle blanchable red. +1 LE edema. Toes warm. R wrist dermal skin tear.
Appetite: on a 2000 calorie 2 gm Sodium diet.
Pressure redistribution devices in place: [employer] air bed. Patient assists with turning.
Plan: Sacral shaped silicone border foam maintained on sacrum. Protective silicone border foam applied to L lateral ankle. Back depressed scar cleansed gently with a cotton tipped applicator to remove debris. Protective silicone border foam
reapplied to back. Patient incontinent of large amount of urine. Alya care given by PCT Broderick and lazara changed with help from PCT Castillo. Air chair cushion given. Patient turned with help from MARIA A Driscoll. Suggested to patient to follow up with his
coordinate measuring machine operator.
Care plan to be updated, will sign off. Call if needed.
--- NOTE | 2024-08-06 09:37 | WOUNDNOTE ---
SACRAL/BUTTOCKS (BLANCHABLE DULL PURPLE)
--- NOTE | 2024-08-06 09:38 | WOUNDNOTE ---
BACK (SUSPECT IS A CRATER SCAR, NO DRAINAGE)
--- NOTE | 2024-08-06 10:00 | W.PN.CARDCBS ---
Addendum entered and electronically signed by Onel Oro MD 08/06/24 12:12:
I saw and examined the patient.
The Pole Peeling Machine Operator Helper's note was reviewed and I agree with the note.
Comment:
GEN: No distress, awake, Ox3
HEENT: supple, anicteric, mmm
LUNGS: bilat rhonchi
CV: Reg, S1/S2, 1/6 syst LSB, no gallop
ABD: soft, BS+, NT/ND
EXT: + edema
NEURO: Gross non-focal
SKIN: No rash
Plan:
Would continue IV diuresis. Check echo today.
Appreciate pulmonary input regarding amiodarone. Cont prednisone and COPD tx.
His device check does have significant atrial arrhythmias. Will attempt to increase diltiazem first. If he has further A-fib on the monitor would start amiodarone.
His pacemaker battery is also at end-of-life. Discussed case with primary bacon skinner at [place]. We will proceed with generator change here at [facility].
Continue aspirin, Plavix, pravastatin and Zetia.
He was not fully anticoagulated because of hemoptysis.
Original Note:
Today's Communication / Plan
-
continue IV diuresis
echo pending
await [facility] report
wean supp O2
Impression / Plan
-
PCP: Dr. Cassia Mckeon
Cardiology: Dr. Edmonds at [facility]
Impression:
Acute on chronic hypoxic respiratory failure, chronically on 2-3L NC
Acute on chronic HFpEF
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
h/o AVR 2010 and redo AVR with root repair 2012
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
CAD with MIs 2008, 2012, details unknown
AAA s/p EVAR 2008
PAF, not OAC candidate given reported severe hemoptysis in setting of PNA 04/2024
DM 2
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
Ambulatory dysfunction, walks with walker
heart block s/p Medtronic PPM
RA on chronic prednisone
Daily narcotics for pain
Depression/anxiety
Echo 04/27/24 at [facility]: TDS, EF 55-60, mild concentric LVH, aortic valve not well visualized, ascending aorta mildly dilated at 3.6 cm, trivial pericardial effusion
Plan:
-Patient presented with worsening shortness of breath and lower extremity edema.
-Likely multifactorial. Being treated for COPD exacerbation as well as acute heart failure
-Diuresing well with IV Lasix, continue. Creatinine stable. prior to admission was on 40mg po daily, however this was decreased from 80mg daily as of 04/2024 per .
-Will review [facility] pacemaker interrogation from 08/05/2024
-Echo pending
-in asensed vpaced rhythm on review of tele overnight
-continue treatment for COPD per primary service. not BB candidate due to COPD.
-he is on asa, plavix as OP. not felt to be OAC candidate given significant hemoptysis in setting of PNA earlier this year
-CHF education
-wean supp O2 as able
-PT/OT
PREADMIT DATA:
-[facility] with increased SOB and dizziness starting last evening and is being admitted with acute HF and cardiology has been consulted. Patient lives in [place] and follows with Dr. Edmonds at [facility], patient has never been to
before. Patient is chronically on aspirin and Plavix for h/o CVA. He was not felt to be candidate for OAC given hemoptysis in setting of PNA 04/2024. He is also felt to be high risk candidate for watchman. Patient is chronically on Lasix 40 mg PO
daily, EF preserved by last echo 04/2024 as above. pro-BNP is 2900 and CXR with vascular congestion. He reports some LE edema and wheezing. Patient is chronically on oxygen at 2 L NC, but initially required NRB in ER, now requiring 5 L. Patient also
reportedly has a history of AVR in 2010 followed by redo AVR and aortic root repair in 2012 that was complicated by VT and NATA with transient dialysis for months, but renal function recovered. He also had his Medtronic PPM placed at that time.
Progress Note - E Business Specialist
Subjective
Date of Service: August 06, 2024
reports slept well. states good urine output with IV lasix
Objective
Labs:
08/06/24 05:06
08/06/24 05:06
Labs
Hgb 9.6 g/dL (13.0-18.0) L 08/06/24 05:06
Hct 32.2 % (39.0-52.0) L 08/06/24 05:06
Plt Count 315 10^3/uL (130-400) 08/06/24 05:06
Sodium 140 mmol/L (135-145) 08/06/24 05:06
Potassium 4.4 mmol/L (3.5-5.1) 08/06/24 05:06
BUN 21 mg/dl (9-20) H 08/06/24 05:06
Creatinine 0.8 mg/dL (0.7-1.3) 08/06/24 05:06
Glucose 297 mg/dl (70-99) H 08/06/24 05:06
Troponins
08/05/24 08/05/24 08/05/24
03:00 13:50 19:59
Troponin I Cancelled 0.028 0.037 H* D
08/06/24 08/06/24 08/06/24
02:06 04:00 08:00
Troponin I 0.019 D Cancelled Cancelled
Vital Signs and I&O:
Vital Signs
Temp Pulse Resp BP Pulse Ox
97.8 F 83 10 126/55 97
08/06/24 07:53 08/06/24 08:14 08/06/24 07:18 08/06/24 08:14 08/06/24 07:18
Vital Signs
Temp Pulse Resp BP Pulse Ox
97.8 F 83 10 126/55 97
08/06/24 07:53 08/06/24 08:14 08/06/24 07:18 08/06/24 08:14 08/06/24 07:18
Intake & Output
08/04/24 08/05/24 08/06/24 08/07/24
07:59 07:59 07:59 07:59
Output Total 700 / 700
Balance -700 / -700
Physical Exam
Physical Exam
GEN: No distress, awake, alert, oriented x3. on supp O2. chronically ill appearing
HEENT: supple, anicteric, mmm, eomi
LUNGS: Few wheezes B/L
CV: Reg, S1/S2, 1/6 syst LSB
ABD: soft, BS+, NT/ND
EXT: No cyanosis, clubbing. 1+ edema of B/L LE
NEURO: Gross non-focal
SKIN: Warm, pink, dry. No rash. Ecchymoses of B/L UE
--- NOTE | 2024-08-06 10:12 | W.CARD.DEVCH ---
Cardiac Device Check
-
Device: Pacemaker
Delivery Driver: Medtronic
The patient's device was interrogated with assistance of the device outside industrial sales representative. The device had normal function. ~1 month of battery life remaining on device. also with 4695 episodes of high atrial rate with several over the last 3 days.
--- NOTE | 2024-08-06 10:20 | W.PN.UPDATE ---
Update Note
Progress Note Update
device interrogation from ER with 4695 episodes of high atrial rate. will consult pulmonary to assess if patient ok for amiodarone given known lung disease. device also aty SAIRA with ~ 1 month of battery remaining. called Dr. Edmonds's office and
nothing presently scheduled regarding generator change. left message for him to call us back to discuss timing of generator change - during this admission with us vs with AMS as OP once DC'd.
reviewed with Dr. Edmonds via telephone. he was ok with generator change while admitted. will tentatively plan for Friday 08/10 and discuss with EP. also reviewed paroxysms of atrial arrhythmia noted on device interrogation. he was hesitant about
proceeding with amiodarone. will have pulm weigh in on amiodarone from standpoint of patient's lung disease. we agreed to start with uptitration of cardizem and will follow on tele while admitted.
--- NOTE | 2024-08-06 10:43 | CON.PUL ---
Consultation
Consultation Request
Date/Time Consultation Requested: 08/06/2024-8 AM
Date/Time Consultation Performed: 08/06/2024-8:30 AM
Requesting Provider: Cardiology
Performing Provider: Dr. Deleon
Reason for Consultation: Shortness of breath
Medical History
-
Chief Complaint: Shortness of breath
History of Present Illness:
73-year-old male with history of COPD, obstructive sleep apnea, former smoker quit 6 years ago [address] Dr[address] Canada who also has a history of heart failure with preserved EF and known CAD presented with increasing shortness of breath and
decompensated heart failure-pulmonary consulted for possible amiodarone need for recurrent atrial tachycardia and COPD 08/06/2024. Patient states that he does feel somewhat better than yesterday. Continues to have some shortness of breath. Does
not complain of any wheezing, chest pain, chest tightness, productive cough, abdominal pain, nausea, or increased lower extremity swelling from his baseline.
Past Medical History
Past Medical History: None (COPD on oxygen. Former smoker. MYKE on CPAP. CAD. AVR 2010 and redo with root repair 2012. PPM-2012. Atrial tachycardia. AAA 2008. Diabetes. 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 ADL dysfunction.
RA on chronic prednisone. Chronic pain/narcotics. Depression. Anxiety.)
Social History
Tobacco: Former Smoker ([id number] quit 2017)
Alcohol: None
Drug: Narcotics (For chronic pain)
Personal:
Living: With Family
Occupational Exposures: No known asbestos exposure
Environmental Exposures: No known tuberculosis exposure
Family History
Family History: Other (CAD)
Allergies / Home Medications
Allergies
Allergy/AdvReac Type Severity Reaction Status Date / Time
adalimumab [From Humira] Allergy Unknown Verified 08/05/24 14:27
Cephalosporins Allergy Unknown Verified 08/05/24 18:19
clarithromycin Allergy Unknown Verified 08/05/24 14:26
doxycycline Allergy Unknown Verified 08/05/24 14:26
etanercept [From Enbrel] Allergy Unknown Verified 08/05/24 14:27
hydromorphone [From Dilaudid] Allergy Unknown Verified 08/05/24 14:26
infliximab [From Remicade] Allergy Unknown Verified 08/05/24 14:27
latex Allergy Unknown Verified 08/05/24 14:26
lorazepam Allergy Unknown Verified 08/05/24 14:26
methotrexate Allergy Unknown Verified 08/05/24 14:26
Penicillins Allergy Unknown Verified 08/05/24 18:19
red dye Allergy Unknown Verified 08/05/24 14:26
sulfamethoxazole Allergy Unknown Verified 08/05/24 14:26
[From Bactrim]
sulfisoxazole Allergy Unknown Verified 08/05/24 18:19
tetracycline Allergy Unknown Verified 08/05/24 21:43
trimethoprim [From Bactrim] Allergy Unknown Verified 08/05/24 14:26
Home Medications
�Medication �Instructions �Recorded �Confirmed �Last Taken �Type
aspirin 81 mg tablet,delayed 81 mg PO DAILY Blood Clot 08/05/24 08/05/24 08/05/24 History
release Prevention/Tx
budesonide 160 mcg-glycopyr 9 2 inh inhalation R BID 08/05/24 08/05/24 08/05/24 History
mcg-formot 4.8 mcg/actuation HFA Lung/Breathing Issues
inhaler (Breztri Aerosphere)
clopidogrel 75 mg tablet 75 mg PO DAILY Blood Clot 08/05/24 08/05/24 08/05/24 History
Prevention/Tx
diazepam 5 mg tablet 5 mg PO QID Mental Health/Anxiety 08/05/24 08/05/24 08/05/24 History
diltiazem HCl 240 mg 240 mg PO DAILY Heart 08/05/24 08/05/24 08/05/24 History
capsule,extended release 24 hr Disease/Condition
ezetimibe 10 mg tablet 10 mg PO HS High Cholesterol 08/05/24 08/05/24 08/04/24 History
finasteride 5 mg tablet 5 mg PO DAILY Urinary Issue 08/05/24 08/05/24 08/05/24 History
furosemide 40 mg tablet 40 mg PO DAILY Fluid 08/05/24 08/05/24 08/05/24 History
Retention/Swelling
insulin aspart U-100 100 unit/mL 0 sliding scale dose SC MEALS 08/05/24 08/05/24 Unknown History
(3 mL) subcutaneous pen (Novolog Diabetes
FlexPen U-100 Insulin aspart)
insulin glargine 100 unit/mL (3 15 - 30 unit SC HS Diabetes 08/05/24 08/05/24 08/04/24 History
mL) subcutaneous pen (Lantus
Solostar U-100 Insulin)
methadone 10 mg tablet 20 mg PO BID 08/05/24 08/05/24 08/05/24 History
mirtazapine 30 mg disintegrating 30 mg translingual HS Mental 08/05/24 08/05/24 08/04/24 History
tablet Health/Anxiety
omeprazole 20 mg capsule,delayed 20 mg PO DAILY Gastrointestinal 08/05/24 08/05/24 08/05/24 History
release Issue
oxycodone 10 mg tablet 10 mg PO TID Pain 08/05/24 08/05/24 08/05/24 History
paroxetine HCl 20 mg tablet 20 mg PO DAILY Mental 08/05/24 08/05/24 08/05/24 History
Health/Anxiety
pravastatin 20 mg tablet 20 mg PO HS High Cholesterol 08/05/24 08/05/24 08/04/24 History
prednisone 10 mg tablet 10 mg PO DAILY Anti-Inflammatory 08/05/24 08/05/24 08/05/24 History
quetiapine 200 mg tablet 200 mg PO HS Mental Health/Anxiety 08/05/24 08/05/24 08/04/24 History
roflumilast 500 mcg tablet 500 mcg PO DAILY COPD 08/05/24 08/05/24 08/05/24 History
tamsulosin 0.4 mg capsule 0.4 mg PO HS Urinary Issue 08/05/24 08/05/24 08/04/24 History
Review of Systems
-
Unable to Obtain full review of systems at this time due to: Other (Per HPI)
Vitals / Labs / Diagnostic Testing
Vital Signs
Temp Pulse Resp BP Pulse Ox
97.8 F 87 13 137/102 91
08/06/24 07:53 08/06/24 10:00 08/06/24 10:00 08/06/24 10:00 08/06/24 10:00
Lab Data
08/06/24 05:06
08/06/24 05:06
Diagnostic Testing:
Physical Exam
-
Exam:
Well-nourished and well-developed in no apparent distress
HEENT-atraumatic, normocephalic
Neck-supple, no JVD, no bruit
Heart-regular rate and rhythm-no murmurs, rubs or gallops
Chest with diminished breath sounds, prolonged expiratory time, basilar crackles and no wheezes
Abdomen-soft, nontender, nondistended, no hepatosplenomegaly
Extremities-no cyanosis, clubbing, +1 edema
Integument-intact, no rashes, lesions or ecchymosis
Neurology-alert and oriented, nonfocal motor and sensory exam
Assessment
-
73-year-old male with history of COPD, obstructive sleep apnea, former smoker quit 6 years ago followed by Dr. Canada who also has a history of heart failure with preserved EF and known CAD presented with increasing shortness of breath and
decompensated heart failure-pulmonary consulted for possible amiodarone need for recurrent atrial tachycardia and COPD 08/06/2024.
CHF-preserved EF
COPD with mild acute exacerbation
Chronic hypercapnia suspected with compensatory metabolic alkalosis
Hyperglycemia with elevated A1c-6.7
Mild anemia-hemoglobin 9.6-normocytic
Mild leukocytosis
Conditions present prior to admission:
COPD on oxygen-followed by Dr. Canada-maintained on Breztri, albuterol, and Daliresp in addition to azithromycin as well as oxygen 2 L at rest, 3 L with activity
Former smoker-greater than [id number] quit 2018
MYKE on CPAP-BiPAP 12/6 cm with oxygen
CAD.
AVR 2010 and redo with root repair 2012.
PPM-2012.
Atrial tachycardia.
AAA 2008.
Diabetes.
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
ADL dysfunction.
RA on chronic prednisone 10 mg
Chronic pain/narcotics.
Depression.
Anxiety.
Cataract removal. Compression fracture L1. Partial left lower lobectomy-1998.
Plan
Respiratory decompensation likely a combination of CHF preserved EF as well as COPD
Supplement oxygen as needed-attempt to wean-has home oxygen
Mucolytic's
Incentive spirometry
Nebulizers-Home medications include Breztri and Daliresp
Prednisone 40 mg-once stabilized taper back down to chronic prednisone 10 mg for his RA
Cardiology following-correspondence reviewed
Atrial arrhythmias noted on pacemaker interrogation and amiodarone to be initiated-no pulmonary objections-will follow closely including PFTs as an outpatient
Battery life 1 month left-generator change scheduled tentatively for 08/10/2024
Diuresis as tolerated
Monitor renal function, electrolytes, intake/output, lower extremity edema and weight
Replace electrolytes as needed
Monitor blood sugar
Insulin supplementation as needed
Monitor hemoglobin
Transfuse as needed
DVT prophylaxis-on Lovenox
GI prophylaxis-on pantoprazole
Nutrition
Early mobilization
Patient follows with Dr. Canada-last seen 02/26/2024-will have him follow back up after hospitalization-had canceled 05/20/2024 appointment
Diagnostic data:
Chest x-ray 08/05/2024-mild interstitial prominence suggesting pulmonary vascular congestion
CT chest 03/09/2024-interstitial fibrotic changes mid and lower lung zones, no honeycombing, likely postinflammatory mild localized linear/nodular parenchymal scarring left lung base, chronic pancreatitis, mild generalized emphysematous changes
Echo 01/2023 ([facility]): Per cardiology correspondence, normal EF 50%, moderate MR, bioprosthetic aortic valve gradient stable.
6MWT 10/16/23 ([facility]): Total distance 330 ft, desaturation paulette 94%, heart rate 102, dyspnea scale 5/10.� Ended walk test due to shortness of breath
6MWT 01/16/24: total distance 300 feet, desaturated to 88% in the sixth minute, heart rate 81, dyspnea scale 9/10. Improved with 1 L, 93%. Of note, pre-ambulation saturation was 92%, dyspnea scale at rest 5/10
[place] 01/16/24: FVC 1.99/65%, FEV1 0.82/38%, ratio 41
PFT 10/16/23 ([facility]): FVC 2.40/71%, FEV1 0.88/34%, ratio 37. TLC 4.64/74%, RV 2.19/93%, DLCO 11.41/51%.
Data Reviewed
-
PFT: Report reviewed by me
EKG: Report reviewed by me
Radiology: Image personally visualized and interpreted and Report reviewed by me
Medical Tests (Nuc Med, Echo etc): Report reviewed by me
Labs: Labs reviewed by me
Old Records: Reviewed
Total Time Spent with Patient (in minutes): 55
--- NOTE | 2024-08-06 11:14 | W.PN.HOSP.TC ---
Today's Communication/Plan
-
IV lasix
monitor cr
po prednisone
insulin adjusted
wean o2 to baseline
Assessment / Plan
Assessment / Plan
General: Well Developed and Well Nourished, waking up and starting to have Conversation
HEENT: Anicteric, Moist mucous membranes and Oxygen (Nasal Cannula)
Respiratory: Other (Decreased breath sounds throughout; Few faint wheezes)
Cardiac: S1/S2, Regular Rhythm and Murmur
GI: Soft and Non Tender
Rectal: Deferred by Provider
Musculoskeletal: No Clubbing, No Cyanosis and Other (+2 pitting edema bilateral lower extremities)
Skin: Warm, Dry and Other (Significant bruising bilateral upper extremities)
Neuro: Chronic right hemiparesis, waking up now and states he wants water. following commands
Psych: Calm
Acute on Chronic Hypoxic Respiratory Failure secondary to Acute on chronic HFpEF +/- COPD Exacerbation
-Continue supplemental oxygen
Acute on Chronic HFpEF
History of aortic valve replacement 2010 status post repair 2012
CAD
-Consult Cardiology
-Check Echocardiogram
-Check lower extremity Doppler
-Continue Lasix 40mg IV BID
-Monitor Is&Os and Daily Weights
Severe COPD, possible component of acute exacerbation
-Consult Pulmonary
-Patient received Decadron 10mg IV in ED - Transition to Prednisone 40mg Daily
-Continue Pulmicort Neb
-Continue DuoNeb QID and PRN
Paroxysmal atrial fibrillation
Heart block status post pacemaker implantation
-Not on anticoagulation due to history of severe epistaxis and hemoptysis
-Continue with Cardizem
-Pacemaker interrogation and cardiology correspondence noted
-Plan for possible generator change next week
Stroke with Residual Right Hemiparesis
-Continue Aspirin and Plavix
Essential Hypertension
-Continue Diltiazem
Hyperlipidemia
-Continue Zetia and Pravastatin
Diabetes Mellitus, Type II-uncontrolled as on steroids
-Continue Lantus and NovoLog-dose adjusted
-Monitor sugars and continue coverage insulin
-A1C 6.7
Anxiety/Depression/Insomnia
-Hold Seroquel. Restart Diazepam
-Continue Remeron and Paxil
Rheumatoid Arthritis
Chronic Pain with Opioid Dependence
-Continue methadone
-Change oxycodone to prn
BPH
-Continue finasteride and Flomax
Hx Abdominal Aortic Aneurysm s/p Repair
Code Status: Full Code
Anticipated Discharge: > 48 hours
Subjective/Interval History
-
Date of Service: August 06, 2024
More awake
on 5L oxygen
states improvement in breathing
Objective Data
-
Labs:
Laboratory Results
08/06/24 08/06/24
00:08 05:06
WBC 5.3
Hgb 9.6 L
Hct 32.2 L
Plt Count 315
Sodium 140
Potassium 4.4
Chloride 88 L
Carbon Dioxide 44 H
BUN 21 H
Creatinine 0.8
Glucose 453 H* 297 H
Calcium 8.4
Vital Signs:
Vital Signs
Temp Pulse Resp BP Pulse Ox
97.8 F 87 13 137/102 91
08/06/24 07:53 08/06/24 10:00 08/06/24 10:00 08/06/24 10:00 08/06/24 10:00
I&O
08/05/24 08/06/24 08/07/24
06:59 06:59 06:59
Output Total 700 / 700
Balance -700 / -700
Data Reviewed
-
Total Time Spent with Patient (in minutes): 55
[2024-08-06] MEDS: DUONEB INH (11:18)
[2024-08-06 11:50] LABS: Glucose - Point of Care 221 mg/dl (70-99)
[2024-08-06] MEDS: NOVOLOG FLEXPEN 9 UNITS SC ×2 (12:18→16:22)
[2024-08-06] MEDS: VALIUM 5 MG PO ×3 (12:19→21:48)
--- NOTE | 2024-08-06 12:35 | PTCARENOTE ---
Received report from night RN. AASumeet knight. Pt on 5L midflow O2 sat is 92%. Dyspneic on exertion expiratory wheeze when auscultating. V-paced on tele. Pt went to ultrasound for bilateral legs. prosthodontist/educator seen patient and spouse bedside.
Educated and encouraged patient to manage diabetes from home. Last blood glucose was 221. Order for valium placed see orders, pt states he takes valium at home. PT/OT consult in. Sat at the side of the bed to void using urinal. Spouse at the
bedside. Pt rings appropriately. Call michael is within reach.
[2024-08-06 16:33] LABS: Glucose - Point of Care 201 mg/dl (70-99)
--- NOTE | 2024-08-06 17:00 | CM ---
Addendum entered by Sherie Juarez RN 08/06/24 17:15:
Noting seen by wound care nurse.
Original Note:
Patient with Hx COPD, MYKE, CVA, Pacemaker. O2 5L. Receiving IV Lasix. PT/OT Evals today.
Met with patient and Maribeth;
the patient resides with his in a 1 story house with 1 PEÑA.
The grandson, grand daughter in law and 2 great grandsons live in the unit upstairs.
The patient sleeps in a hospital bed and has been assisted with ADLs by his including bathing.
He is ambulatory for short distances using his RW at home and scooter when out.
The patient does not drive but does.
DME - hospital bed, RW, rollator, SPC, w/c, scooter, shower chair, commode
Has home O2 concentrator (uses 2.5-3L at home) and Inogen portable through [employer].
His BiPAP is supplied by [facility].
Mike HELLRE
No prior SNF or AR.
PCP - Cassia Mckeon
Pharmacy - [facility]
The patient has 4 children. His daughter Abby lives nearby who is a retired nurse.
Plan follow up PT/OT Evals.
[2024-08-06] MEDS: MYLICON 80 MG PO (17:16)
[2024-08-06] MEDS: LOVENOX 40 MG SC (17:25)
--- NOTE | 2024-08-06 19:31 | PTCARENOTE ---
Pt received from previous RN. PT AAOx3. Pt on 5L midflow sats 89-92%. Pt denies SOB. Pt with pacemaker V paced. HR 89. Assessment as documented. Call light in reach.
[2024-08-06 21:31] LABS: Glucose - Point of Care 283 mg/dl (70-99)
[2024-08-06] MEDS: LANTUS 0.22 UNITS SC (21:46)
[2024-08-06] MEDS: FLOMAX 0.4 MG PO (21:47)
[2024-08-06] MEDS: ZETIA 10 MG PO (21:47)
[2024-08-06] MEDS: REMERON ODT 30 MG PO (21:47)
[2024-08-06] MEDS: CARDIZEM CD 120 MG PO (21:48)
[2024-08-06] MEDS: PRAVACHOL 20 MG PO (21:48)
[2024-08-07] VITALS (13 sets, daily range): BP systolic 110–152; BP diastolic 56–114; PULSE 90; O2SAT 97; BMI 26.9
[2024-08-07 06:01] LABS: Blood Urea Nitrogen 33 mg/dl (9-20); Calcium 8.3 mg/dl (8.4-10.2); Chloride 87 mmol/L (98-107); Estimated Creatinine Clearance 72 ml/min; Glucose 228 mg/dl (70-99); Potassium 4.5 mmol/L (3.5-5.1); Sodium 140 mmol/L (135-145); eGFR > 60.00
[2024-08-07 06:22] LABS: Carbon Dioxide 43 mmol/L (22-30)
[2024-08-07 07:22] LABS: Glucose - Point of Care 200 mg/dl (70-99)
[2024-08-07] MEDS: DUONEB 3 ML INH ×4 (07:24→18:40)
[2024-08-07] MEDS: PULMICORT 0.5 MG INH ×2 (07:25→18:40)
--- NOTE | 2024-08-07 07:46 | PN.DE.MGMTRT ---
Insulin Management
- -
08/07/2024: Diabetes Management F/U:
73 year old male admitted with c/o SOB/weakness - COPD exacerbation with CHF.
PMH: COPD, CHF, T2DM, CAD with prior HI, CVA with R sided residual deficit, daily narcotic use for pain control, Depression/Anxiety.
Prior to admission patient was taking 15 to 30 units of Lantus @ HS with ss NovoLog AC. A1C 6.7%, Cr .8, eGFR > 60.
Patient was off the unit for testing, I spoke with patient . She states she gives patient all insulin and tests his glucose. She states sometimes she give Lantus 15 @ hs but if glucose is elevated she may give him 30 units. The AC NovoLog she
uses a SS.
Pt awake, alert, offers no complaints, at bedside, able to discuss diabetes management
Insulin doses were adjusted due to ongoing hyperglycemia. Pt remains on steroids- prednisone 40 mg po daily
08/06 premeal glucose range 201 to 232, requiring additional corrective insulin. Fasting glucose 228 this AM
Will increase AC NovoLog to 15 units and HS Lantus to 25 units. Change diet to 1800 alvina
Pt and state PCP manages diabetes and will follow with practice after discharge
Diabetes History
- -
Type of Diabetes: 2 requiring insulin
Pre-Admission Diabetes Regimen
08/07/24
05:14
Creatinine 0.8
Lab Results
Hemoglobin A1c 6.7 % (4.0-5.6) H 08/06/24 05:06
Insulin Pump Settings
IP Diabetes Regimen
08/06/24 08/06/24 08/06/24
07:57 11:39 16:22
Glucose
POC Glucose 232 H 221 H 201 H
08/06/24 08/07/24 08/07/24
21:18 05:14 07:10
Glucose 228 H
POC Glucose 283 H 200 H
Meal type: Dinner
Meal type: Lunch
Meal type: Breakfast
Amount consumed: 100%
Amount consumed: 75%
Amount consumed: 75%
Patient Education
[2024-08-07] MEDS: NOVOLOG FLEXPEN-HIGH RESISTANCE 4 UNITS SC ×2 (07:50→12:01)
[2024-08-07] MEDS: NOVOLOG FLEXPEN 9 UNITS SC (07:50)
--- NOTE | 2024-08-07 07:52 | W.PN.CARDCBS ---
Addendum entered and electronically signed by Boogie Singh MD 08/07/24 11:09:
I saw and examined the patient.
The POLICE SPECIALIST or PA's note was reviewed and I agree with the note.
Comment: General: Well developed, well nourished in NAD.
Neck: Supple, no JVD, HJR, carotids +2 B/L, no bruits bilaterally.
Heart: Non displaced PMI, RRR, no murmurs, No S3, S4, no rubs.
Lungs: Scattered rhonchi
Extremities: No clubbing, cyanosis or edema bilaterally.
Neuro: Grossly nonfocal, awake, alert and oriented x3.
Will continue IV Lasix. Follow for recurrent A-fib on higher dose of Cardizem. Primary coating engineer preferred aspirin and Plavix as opposed to anticoagulation given prior hemoptysis. Will arrange for generator change on 08/10
Original Note:
Today's Communication / Plan
-
continue IV lasix
follow rhythm on increased dose cardizem
generator change Friday 08/10 here
Impression / Plan
-
PCP: Dr. Cassia Mckeon
Cardiology: Dr. Edmonds at [facility]
Impression:
Acute on chronic hypoxic respiratory failure, chronically on 2-3L NC
Acute on chronic HFpEF
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
h/o AVR 2010 and redo AVR with root repair 2012
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
CAD with MIs 2008, 2012, details unknown
AAA s/p EVAR 2008
PAF, not OAC candidate given reported severe hemoptysis in setting of PNA 04/2024
DM 2
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
Ambulatory dysfunction, walks with walker
heart block s/p Medtronic PPM
RA on chronic prednisone
Daily narcotics for pain
Depression/anxiety
Echo 04/27/24 at [facility]: TDS, EF 55-60, mild concentric LVH, aortic valve not well visualized, ascending aorta mildly dilated at 3.6 cm, trivial pericardial effusion
ECHO 08/06/24: EF 55 to 60%, mild concentric LVH, MAC, mild to moderate MR, bioprosthetic aortic valve with mean gradient of 5 mmHg, no AI, mild TR, PAP 45 mmHg, mild pulmonary hypertension
Plan:
-Patient presented with worsening shortness of breath and lower extremity edema.
-Likely multifactorial. Being treated for COPD exacerbation as well as acute heart failure
-weight down 2 pounds overnight if accurate. Cr stable. continue IV lasix. prior to admission was on 40mg po daily, however this was decreased from 80mg daily as of 04/2024 per .
-PPM interrogation with battery at [facility], 1 month. d/w patient's primary coating engineer via telephone 08/06. plan for generator change 08/10 here.
-echo with results as above
-in paced rhythm overnight. device interrogation also with over 4000 episodes of atrial arrhythmia noted since 03/2024. after discussion with primary coating engineer, will start with increasing OP cardizem dose and uptitrate as able. alternative option
would be for amiodarone, appreciate pulm input, ok to start if needed from their standpoint in setting of patient's chronic COPD/emphysema
-continue treatment for COPD per primary service. not BB candidate due to COPD.
-he is on asa, plavix as OP. not felt to be OAC candidate given significant hemoptysis in setting of PNA earlier this year. will discuss need to hold plavix pre generator change with EP
-CHF education
-could consider addition of SGLT2 inhibitor, defer to patient's primary coating engineer
-wean supp O2 as able
-PT/OT
PREADMIT DATA:
-[facility] with increased SOB and dizziness starting last evening and is being admitted with acute HF and cardiology has been consulted. Patient lives in [place] and follows with Dr. Edmonds at [facility], patient has never been to
before. Patient is chronically on aspirin and Plavix for h/o CVA. He was not felt to be candidate for OAC given hemoptysis in setting of PNA 04/2024. He is also felt to be high risk candidate for watchman. Patient is chronically on Lasix 40 mg PO
daily, EF preserved by last echo 04/2024 as above. pro-BNP is 2900 and CXR with vascular congestion. He reports some LE edema and wheezing. Patient is chronically on oxygen at 2 L NC, but initially required NRB in ER, now requiring 5 L. Patient also
reportedly has a history of AVR in 2010 followed by redo AVR and aortic root repair in 2012 that was complicated by MS and NATA with transient dialysis for months, but renal function recovered. He also had his Medtronic PPM placed at that time.
Progress Note - Tubular Stock Glass Bulb Machine Former
Subjective
Date of Service: August 07, 2024
reports breathing continues to improve. good urine output.
Objective
Labs:
08/06/24 05:06
08/07/24 05:14
Labs
Hgb 9.6 g/dL (13.0-18.0) L 08/06/24 05:06
Hct 32.2 % (39.0-52.0) L 08/06/24 05:06
Plt Count 315 10^3/uL (130-400) 08/06/24 05:06
Sodium 140 mmol/L (135-145) 08/07/24 05:14
Potassium 4.5 mmol/L (3.5-5.1) 08/07/24 05:14
BUN 33 mg/dl (9-20) H 08/07/24 05:14
Creatinine 0.8 mg/dL (0.7-1.3) 08/07/24 05:14
Glucose 228 mg/dl (70-99) H 08/07/24 05:14
Troponins
08/05/24 08/05/24 08/05/24
03:00 13:50 19:59
Troponin I Cancelled 0.028 0.037 H* D
08/06/24 08/06/24 08/06/24
02:06 04:00 08:00
Troponin I 0.019 D Cancelled Cancelled
Vital Signs and I&O:
Vital Signs
Temp Pulse Resp BP Pulse Ox
97.7 F 72 12 137/62 99
08/07/24 07:15 08/07/24 07:28 08/07/24 07:28 08/07/24 06:00 08/07/24 07:28
Vital Signs
Temp Pulse Resp BP Pulse Ox
97.7 F 72 12 137/62 99
08/07/24 07:15 08/07/24 07:28 08/07/24 07:28 08/07/24 06:00 08/07/24 07:28
Intake & Output
08/04/24 08/05/24 08/06/24 08/07/24
07:59 07:59 07:59 07:59
Intake Total 1200 / 1200
Output Total 700 / 700 2500 / 2500
Balance -700 / -700 -1300 / -1300
Physical Exam
Physical Exam
GEN: No distress, awake, alert, oriented x3. receiving breathing treatment. chronically ill appearing
HEENT: supple, anicteric, mmm, eomi
LUNGS: CTA anterolaterally
CV: Reg, S1/S2, 1/6 syst LSB
ABD: soft, BS+, NT/ND
EXT: No cyanosis, clubbing. trace edema of B/L LE
NEURO: Gross non-focal
SKIN: Warm, pink, dry. No rash. Ecchymoses of B/L UE
[2024-08-07] MEDS: LASIX 40 MG IV ×2 (08:17→17:21)
[2024-08-07] MEDS: PROSCAR 5 MG PO (08:19)
[2024-08-07] MEDS: ASPIR LOW (ENTERIC COATED) 81 MG PO (08:19)
[2024-08-07] MEDS: DELTASONE 40 MG PO (08:19)
[2024-08-07] MEDS: PROTONIX 40 MG PO (08:19)
[2024-08-07] MEDS: PLAVIX 75 MG PO (08:19)
[2024-08-07] MEDS: DALIRESP 500 MCG PO (08:19)
[2024-08-07] MEDS: CARDIZEM CD 240 MG PO (08:19)
[2024-08-07] MEDS: VALIUM 5 MG PO ×4 (08:19→21:12)
[2024-08-07] MEDS: DOLOPHINE 20 MG PO ×2 (08:19→22:32)
[2024-08-07] MEDS: PAXIL 20 MG PO (08:19)
--- NOTE | 2024-08-07 08:45 | PTCARENOTE ---
Patient received from shift foreman. Patient resting comfortably in bed. AAO, VSS. No events noted overnight. No complaints of pain at this time. Currently on 5L N/C, will continue to attempt to wean as tolerated. No test scheduled for today.
Plan is to have Pacemaker generator changed Friday 08/10. Call michael in reach.
--- NOTE | 2024-08-07 09:53 | W.PN.HOSP.TC ---
Today's Communication/Plan
-
IV lasix
steroids
pt/ot
generator change saturday
trend cr
Assessment / Plan
Assessment / Plan
General: Well Developed and Well Nourished,
HEENT: Anicteric, Moist mucous membranes and Oxygen (Nasal Cannula)
Respiratory: Decreased breath sounds, able to speak in complete sentences,
Cardiac: S1/S2, Regular Rhythm and Murmur
GI: Soft and Non Tender
Rectal: Deferred by Provider
Musculoskeletal: No Clubbing, No Cyanosis and Other (+2 pitting edema bilateral lower extremities-improving since admission
Skin: Warm, Dry and Other (Significant bruising bilateral upper extremities)
Neuro: Chronic right hemiparesis, awake alert and oriented, following commands
Psych: Calm
Acute on Chronic Hypoxic Respiratory Failure secondary to Acute on chronic HFpEF +/- COPD Exacerbation
-Continue supplemental oxygen
Acute on Chronic HFpEF and mild pulmonary hypertension
History of aortic valve replacement 2010 status post repair 2012
CAD
-Consult Cardiology
-Echo with EF of 55 to 60%. Normal left ventricular size and function. Mild to moderate mitral regurgitation. PASP 45 mmHg consistent with mild pulmonary hypertension
-Venous Doppler negative.
-Continue Lasix 40mg IV BID. Creatinine holding. Improving.
-Monitor Is&Os and Daily Weights
Severe COPD, possible component of acute exacerbation
-Consult Pulmonary
-Patient received Decadron 10mg IV in ED - Transition to Prednisone 40mg Daily
-Continue Pulmicort Neb
-Continue DuoNeb QID and PRN
Paroxysmal atrial fibrillation
Heart block status post pacemaker implantation
-Not on anticoagulation due to history of severe epistaxis and hemoptysis
-Continue with Cardizem dose increased.
-Pacemaker interrogation and cardiology correspondence noted
-Plan for generator change 08/10
Stroke with Residual Right Hemiparesis
-Continue Aspirin and Plavix
Essential Hypertension
-Continue Diltiazem
Hyperlipidemia
-Continue Zetia and Pravastatin
Diabetes Mellitus, Type II-uncontrolled as on steroids
-Continue Lantus and NovoLog-dose adjusted
-Monitor sugars and continue coverage insulin
-A1C 6.7. POC AM 200.
Anxiety/Depression/Insomnia
-Hold Seroquel. Restart Diazepam
-Continue Remeron and Paxil
Rheumatoid Arthritis
Chronic Pain with Opioid Dependence
-Continue methadone
-Change oxycodone to prn
BPH
-Continue finasteride and Flomax
Hx Abdominal Aortic Aneurysm s/p Repair
Code Status: Full Code
PT/OT-Home health
Anticipated Discharge: > 48 hours
Subjective/Interval History
-
Date of Service: August 07, 2024
Improvement in breathing
States lower extremity edema improving
Objective Data
-
Labs:
Laboratory Results
08/07/24
05:14
Sodium 140
Potassium 4.5
Chloride 87 L
Carbon Dioxide 43 H
BUN 33 H
Creatinine 0.8
Glucose 228 H
Calcium 8.3 L
Vital Signs:
Vital Signs
Temp Pulse Resp BP Pulse Ox
97.7 F 86 12 128/91 99
08/07/24 07:15 08/07/24 08:17 08/07/24 07:28 08/07/24 08:17 08/07/24 07:28
I&O
08/06/24 08/07/24 08/08/24
06:59 06:59 06:59
Intake Total 1200 / 1200 240 / 240
Output Total 700 / 700 2500 / 2500
Balance -700 / -700 -1300 / -1300 240 / 240
Data Reviewed
-
Total Time Spent with Patient (in minutes): 52
--- NOTE | 2024-08-07 10:10 | W.PN.PUL.V3 ---
Today's Communication / Plan
-
Wean oxygen
Diuresis
Prednisone no change
Nebulizers
Pacemaker battery change Saturday
Assessment
-
73-year-old male with history of COPD, obstructive sleep apnea, former smoker quit 6 years ago followed by Dr. Canada who also has a history of heart failure with preserved EF and known CAD presented with increasing shortness of breath and
decompensated heart failure-pulmonary consulted for possible amiodarone need for recurrent atrial tachycardia and COPD 08/06/2024.
CHF-preserved EF
COPD with mild acute exacerbation
Chronic hypercapnia suspected with compensatory metabolic alkalosis
Hyperglycemia with elevated A1c-6.7
Mild anemia-hemoglobin 9.6-normocytic
Mild leukocytosis
Conditions present prior to admission:
COPD on oxygen-followed by Dr. Canada-maintained on Breztri, albuterol, and Daliresp in addition to azithromycin as well as oxygen 2 L at rest, 3 L with activity
Former smoker-greater than 99-[id number] quit 2018
MYKE on CPAP-BiPAP 12/6 cm with oxygen
CAD.
AVR 2010 and redo with root repair 2012.
PPM-2012.
Atrial tachycardia.
AAA 2008.
Diabetes.
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
ADL dysfunction.
RA on chronic prednisone 10 mg
Chronic pain/narcotics.
Depression.
Anxiety.
Cataract removal. Compression fracture L1. Partial left lower lobectomy-1998.
Plan
Respiratory decompensation likely a combination of CHF preserved EF as well as COPD
Supplement oxygen as needed-attempt to wean-has home oxygen
Mucolytic's
Incentive spirometry continues
Nebulizers-note home medications include Breztri and Daliresp
Prednisone 40 mg-once stabilized taper back down to chronic prednisone 10 mg for his RA
Cardiology following-correspondence reviewed
Atrial arrhythmias noted on pacemaker interrogation and amiodarone to be initiated-no pulmonary objections-will follow closely including PFTs as an outpatient
Battery life 1 month left-generator change scheduled tentatively for 08/10/2024
Diuresis continues as tolerated
Monitor renal function, electrolytes, intake/output, lower extremity edema and weight
Replace electrolytes as needed
Monitor blood sugar
Insulin supplementation as needed
Monitor hemoglobin
Transfuse as needed
DVT prophylaxis-on Lovenox
GI prophylaxis-on pantoprazole
Nutrition
Early mobilization/PT/OT
Patient follows with Dr. Canada-last seen 02/26/2024-will have him follow back up after hospitalization-had canceled 05/20/2024 appointment
Diagnostic data:
Chest x-ray 08/05/2024-mild interstitial prominence suggesting pulmonary vascular congestion
CT chest 03/09/2024-interstitial fibrotic changes mid and lower lung zones, no honeycombing, likely postinflammatory mild localized linear/nodular parenchymal scarring left lung base, chronic pancreatitis, mild generalized emphysematous changes
Echo 01/2023 ([facility]): Per cardiology correspondence, normal EF 50%, moderate MR, bioprosthetic aortic valve gradient stable.
6MWT 10/16/23 ([facility]): Total distance 330 ft, desaturation paulette 94%, heart rate 102, dyspnea scale 5/10.� Ended walk test due to shortness of breath
6MWT 01/16/24: total distance 300 feet, desaturated to 88% in the sixth minute, heart rate 81, dyspnea scale 9/10. Improved with 1 L, 93%. Of note, pre-ambulation saturation was 92%, dyspnea scale at rest 5/10
[facility] 01/16/24: FVC 1.99/65%, FEV1 0.82/38%, ratio 41
PFT 10/16/23 ([facility]): FVC 2.40/71%, FEV1 0.88/34%, ratio 37. TLC 4.64/74%, RV 2.19/93%, DLCO 11.41/51%.
Subjective Data
-
Date of Service:
Date of Service: August 07, 2024
Chief Complaint: Pulmonary Follow Up and Dyspnea Follow Up
Subjective:
Feels better, close to his baseline, no chest pain or abdominal pain
Review of Systems
General: Other (Per HPI)
Objective Data
Data Reviewed
Vital Signs / I&O:
Vital Signs
Temp Pulse Resp BP Pulse Ox
97.7 F 86 12 128/91 99
08/07/24 07:15 08/07/24 08:17 08/07/24 07:28 08/07/24 08:17 08/07/24 07:28
Intake and Output
08/06/24 08/07/24 08/08/24
06:59 06:59 06:59
Intake Total 1200 / 1200 240 / 240
Output Total 700 / 700 2500 / 2500
Balance -700 / -700 -1300 / -1300 240 / 240
SaO2: 99
Nasal Cannula flow liters per minute: 5
Physical Exam
General: Respiratory Distress (n) and Comfortable
HEENT: Normocephalic, Anicteric and Moist Mucous Membranes
Cardiovascular: Regular Rhythm
Respiratory: Clear (Diminished breath sounds and prolonged expiratory time), Wheeze (n), Crackles (Basilar), Rhonchi (n), Non-Labored Respirations, Accessory Resp Muscle Use (n) and Stridor (n)
GI: Soft, Non Distended and Non Tender
Neurology: Awake, Alert and No Motor Deficits
Skin: Warm, Good Color, Cyanosis (n), Jaundice (n) and Rash (n)
Labs/Micro/Reports
Lab Data
08/06/24 05:06
08/07/24 05:14
[2024-08-07 11:58] LABS: Glucose - Point of Care 206 mg/dl (70-99)
[2024-08-07] MEDS: NOVOLOG FLEXPEN 15 UNITS SC ×2 (12:01→17:22)
--- NOTE | 2024-08-07 12:35 | CM ---
CM reviewed chart, met with patient bedside, present. CM discussed PT evaluations/recommendations of home health. Patients confirms patient has had [facility] in the past, did not find them helpful and would prefer to work on therapy
with patient without VN services. Patient not stable for discharge at this time, CM will continue to follow for all discharge planning needs.
Plan; home with family when stable, declining VN at this time, on home O2.
[2024-08-07 16:27] LABS: Glucose - Point of Care 145 mg/dl (70-99)
[2024-08-07] MEDS: NOVOLOG FLEXPEN-HIGH RESISTANCE SC (17:03)
[2024-08-07] MEDS: LOVENOX 40 MG SC (17:21)
--- NOTE | 2024-08-07 18:31 | PTCARENOTE ---
Report called to [facility]. Patient transported via wheel chair and with all known belongings.
[2024-08-07] MEDS: PRAVACHOL 20 MG PO (21:02)
[2024-08-07] MEDS: ZETIA 10 MG PO (21:02)
[2024-08-07] MEDS: FLOMAX 0.4 MG PO (21:02)
[2024-08-07] MEDS: REMERON ODT 30 MG PO (21:03)
[2024-08-07] MEDS: CARDIZEM CD 120 MG PO (21:03)
[2024-08-07] MEDS: SEROQUEL 50 MG PO (21:12)
[2024-08-07 21:23] LABS: Glucose - Point of Care 230 mg/dl (70-99)
[2024-08-07] MEDS: LANTUS 0.25 UNITS SC (21:52)
[2024-08-08] VITALS (7 sets, daily range): BP systolic 127–146; BP diastolic 58–75; BMI 26.7
[2024-08-08] MEDS: DUONEB 3 ML INH ×4 (07:51→19:53)
[2024-08-08] MEDS: PULMICORT 0.5 MG INH ×2 (07:51→19:54)
[2024-08-08 08:23] LABS: % Basophils 0.1 % (0-2); % Eosinophils 0.2 % (0-6); % Immature Granulocytes 0.6 % (0-0.5); % Monocytes 9.1 % (1.7-9.3); Absolute Immature Granulocytes 0.1 10^3/uL (0-0.05); Absolute Lymphocytes 1.2 10^3/uL (1.2-3.4); Absolute Monocytes 0.8 10^3/uL (0.1-0.6); Absolute Neutrophils 6.8 10^3/uL (1.4-6.5); Hemoglobin 9.4 g/dL (13.0-18.0); Mean Corp Hgb Conc. 28.5 g/dL (33.0-37.0); Mean Corpuscular Hgb 24.2 pg (27.0-31.0); Mean Corpuscular Volume 84.8 fL (80.0-94.0); Mean Platelet Volume 9.2 fL (7.4-10.4); Nucleated Red Blood Cells % 0 % (-); Platelet Count 312 10^3/uL (130-400); Red Blood Cell Count 3.89 10^6/uL (4.70-6.10); White Blood Cell Count 8.8 10^3/uL (4.8-10.8)
[2024-08-08] MEDS: PAXIL 20 MG PO (08:24)
[2024-08-08] MEDS: VALIUM 5 MG PO ×4 (08:24→21:39)
[2024-08-08] MEDS: ASPIR LOW (ENTERIC COATED) 81 MG PO (08:24)
[2024-08-08] MEDS: DALIRESP 500 MCG PO (08:24)
[2024-08-08] MEDS: PROTONIX 40 MG PO (08:24)
[2024-08-08] MEDS: PROSCAR 5 MG PO (08:25)
[2024-08-08] MEDS: PLAVIX 75 MG PO (08:25)
[2024-08-08] MEDS: DOLOPHINE 20 MG PO ×2 (08:25→20:48)
[2024-08-08] MEDS: DELTASONE 40 MG PO (08:26)
[2024-08-08] MEDS: LASIX 40 MG IV ×2 (08:26→17:06)
[2024-08-08 08:28] LABS: Glucose - Point of Care 150 mg/dl (70-99)
[2024-08-08 08:29] LABS: Blood Urea Nitrogen 32 mg/dl (9-20); Calcium 8.5 mg/dl (8.4-10.2); Chloride 90 mmol/L (98-107); Estimated Creatinine Clearance 72 ml/min; Glucose 138 mg/dl (70-99); Sodium 140 mmol/L (135-145); eGFR > 60.00
[2024-08-08] MEDS: CARDIZEM CD 240 MG PO (08:30)
[2024-08-08] MEDS: NOVOLOG FLEXPEN 15 UNITS SC (08:33)
[2024-08-08] MEDS: FLUSH (NSS) 2 FLUSH IV ×2 (08:33→17:07)
[2024-08-08] MEDS: NOVOLOG FLEXPEN-HIGH RESISTANCE 2 UNITS SC (08:35)
[2024-08-08 08:42] LABS: Potassium 3.2 mmol/L (3.5-5.1)
[2024-08-08 09:06] LABS: Carbon Dioxide 45 mmol/L (22-30)
--- NOTE | 2024-08-08 09:23 | W.PN.CARDCBS ---
Addendum entered and electronically signed by Boogie Singh MD 08/08/24 09:47:
Also repleted potassium
Original Note:
Today's Communication / Plan
-
Continue to diurese
For generator change on 08/10
Discussed with at bedside
Impression / Plan
-
PCP: Dr. Cassia Mckeon
Cardiology: Dr. Edmonds at [facility]
Impression:
Acute on chronic hypoxic respiratory failure, chronically on 2-3L NC
Acute on chronic HFpEF
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
h/o AVR 2010 and redo AVR with root repair 2012
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
CAD with MIs 2008, 2012, details unknown
AAA s/p EVAR 2008
PAF, not OAC candidate given reported severe hemoptysis in setting of PNA 04/2024
DM 2
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
Ambulatory dysfunction, walks with walker
heart block s/p Medtronic PPM
RA on chronic prednisone
Daily narcotics for pain
Depression/anxiety
Echo 04/27/24 at [facility]: TDS, EF 55-60, mild concentric LVH, aortic valve not well visualized, ascending aorta mildly dilated at 3.6 cm, trivial pericardial effusion
ECHO 08/06/24: EF 55 to 60%, mild concentric LVH, MAC, mild to moderate MR, bioprosthetic aortic valve with mean gradient of 5 mmHg, no AI, mild TR, PAP 45 mmHg, mild pulmonary hypertension
Plan:
He continues to diurese with stable renal function
Will continue IV Lasix
PPM interrogation with battery at [facility], 1 month. d/w patient's primary furniture duster via telephone 08/06. plan for generator change 08/10 here.
device interrogation also with over 4000 episodes of atrial arrhythmia noted since 03/2024. after discussion with primary furniture duster, will start with increasing OP cardizem dose and uptitrate as able. alternative option would be for amiodarone,
appreciate pulm input, ok to start if needed from their standpoint in setting of patient's chronic COPD/emphysema
continue treatment for COPD per primary service. not BB candidate due to COPD.
he is on asa, plavix as OP. not felt to be OAC candidate given significant hemoptysis in setting of PNA earlier this year.
PREADMIT DATA:
-Patient came to [facility] today with increased SOB and dizziness starting last evening and is being admitted with acute HF and cardiology has been consulted. Patient lives in [place] and follows with Dr. Edmonds at [facility], patient has never been to
before. Patient is chronically on aspirin and Plavix for h/o CVA. He was not felt to be candidate for OAC given hemoptysis in setting of PNA 04/2024. He is also felt to be high risk candidate for watchman. Patient is chronically on Lasix 40 mg PO
daily, EF preserved by last echo 04/2024 as above. pro-BNP is 2900 and CXR with vascular congestion. He reports some LE edema and wheezing. Patient is chronically on oxygen at 2 L NC, but initially required NRB in ER, now requiring 5 L. Patient also
reportedly has a history of AVR in 2010 followed by redo AVR and aortic root repair in 2012 that was complicated by OK and NATA with transient dialysis for months, but renal function recovered. He also had his Medtronic PPM placed at that time.
Progress Note - [employer]
Subjective
Date of Service: August 08, 2024
No complaints
Objective
Labs:
08/08/24 07:13
08/08/24 07:13
Labs
Hgb 9.4 g/dL (13.0-18.0) L 08/08/24 07:13
Hct 33.0 % (39.0-52.0) L 08/08/24 07:13
Plt Count 312 10^3/uL (130-400) 08/08/24 07:13
Sodium 140 mmol/L (135-145) 08/08/24 07:13
Potassium 3.2 mmol/L (3.5-5.1) L D 08/08/24 07:13
BUN 32 mg/dl (9-20) H 08/08/24 07:13
Creatinine 0.8 mg/dL (0.7-1.3) 08/08/24 07:13
Glucose 138 mg/dl (70-99) H 08/08/24 07:13
Troponins
08/05/24 08/05/24 08/05/24
03:00 13:50 19:59
Troponin I Cancelled 0.028 0.037 H* D
08/06/24 08/06/24 08/06/24
02:06 04:00 08:00
Troponin I 0.019 D Cancelled Cancelled
Vital Signs and I&O:
Vital Signs
Temp Pulse Resp BP Pulse Ox
97.9 F 78 16 144/68 99
08/08/24 07:40 08/08/24 07:53 08/08/24 07:53 08/08/24 07:40 08/08/24 07:53
Vital Signs
Temp Pulse Resp BP Pulse Ox
97.9 F 78 16 144/68 99
08/08/24 07:40 08/08/24 07:53 08/08/24 07:53 08/08/24 07:40 08/08/24 07:53
Intake & Output
08/06/24 08/07/24 08/08/24 08/09/24
06:59 06:59 06:59 06:59
Intake Total 1200 / 1200 1919 / 1919
Output Total 700 / 700 2500 / 2500 2069
Balance -700 / -700 -1300 / -1300 -150 / -150
Physical Exam
Physical Exam
General: Well developed, well nourished in NAD.
Neck: Supple, no JVD, HJR, carotids +2 B/L, no bruits bilaterally.
Heart: Non displaced PMI, RRR, no murmurs, No S3, S4, no rubs.
Lungs: Scattered rhonchi
Extremities: No clubbing, cyanosis or edema bilaterally.
Neuro: Grossly nonfocal, awake, alert and oriented x3.
--- NOTE | 2024-08-08 09:26 | W.PN.PUL3 ---
Today's Communication / Plan
-
Wean oxygen
Diuresis
Prednisone with taper back to 10mg daily (home dose)
Nebulizers
Pacemaker battery change Saturday
Assessment
-
73-year-old male with history of COPD, obstructive sleep apnea, former smoker quit 6 years ago followed by Dr. Canada who also has a history of heart failure with preserved EF and known CAD presented with increasing shortness of breath and
decompensated heart failure-pulmonary consulted for possible amiodarone need for recurrent atrial tachycardia and COPD 08/06/2024.
Impression:
Acute HFpEF exacerbation
COPD with acute exacerbation
Chronic hypercapnia suspected with compensatory metabolic alkalosis
Hyperglycemia with elevated A1c-6.7 (08/06/2024)
Mild anemia-hemoglobin 9.6-normocytic
Leukocytosis - now resolved
Conditions present prior to admission:
COPD on oxygen-followed by Dr. Canada-maintained on Breztri, albuterol, and Daliresp in addition to azithromycin as well as oxygen 2 L at rest, 3 L with activity
Former smoker-greater than 60-[id number] quit 2018
MYKE on CPAP-BiPAP 12/6 cm with oxygen
CAD.
AVR 2010 and redo with root repair 2012.
PPM-2012.
Atrial tachycardia.
AAA 2008.
Diabetes.
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
ADL dysfunction.
RA on chronic prednisone 10 mg
Chronic pain/narcotics.
Depression.
Anxiety.
Cataract removal. Compression fracture L1. Partial left lower lobectomy-1998.
Plan
Respiratory decompensation likely a combination of CHF preserved EF as well as COPD
Supplement oxygen as needed-attempt to wean-has home oxygen
Check ambulatory pulse oximetry prior to discharge
Mucolytics
Incentive spirometry continues
Continue DuoNebs + budesonide - home medications include Breztri and Daliresp
Prednisone 40 mg-once stabilized taper back down to chronic prednisone 10 mg for his RA
Cardiology following-correspondence reviewed
Atrial arrhythmias noted on pacemaker interrogation and amiodarone to be initiated-no pulmonary objections-will follow closely including PFTs as an outpatient
Battery life 1 month left-generator change scheduled tentatively for 08/10/2024
Diuresis continues as tolerated - currently on IV lasix 40mg BID
Monitor renal function, electrolytes, intake/output, lower extremity edema and weight
Replace electrolytes as needed
Monitor blood sugar with goal >100 and <180
Insulin supplementation as needed
Monitor hemoglobin
Transfuse as needed to keep Hb>7
DVT prophylaxis-on Lovenox
GI prophylaxis-on pantoprazole
Nutrition
Early mobilization/PT/OT
Patient follows with Dr. Canada-last seen 02/26/2024-will have him follow back up after hospitalization-had canceled 05/20/2024 appointment
Pulmonary service will continue to follow along while he remains hospitalized
Diagnostic data:
Chest x-ray 08/05/2024-mild interstitial prominence suggesting pulmonary vascular congestion
CT chest 03/09/2024-interstitial fibrotic changes mid and lower lung zones, no honeycombing, likely postinflammatory mild localized linear/nodular parenchymal scarring left lung base, chronic pancreatitis, mild generalized emphysematous changes
Echo 01/2023 ([facility]): Per cardiology correspondence, normal EF 50%, moderate MR, bioprosthetic aortic valve gradient stable.
6MWT 10/16/23 ([facility]): Total distance 330 ft, desaturation paulette 94%, heart rate 102, dyspnea scale 5/10.� Ended walk test due to shortness of breath
6MWT 01/16/24: total distance 300 feet, desaturated to 88% in the sixth minute, heart rate 81, dyspnea scale 9/10. Improved with 1 L, 93%. Of note, pre-ambulation saturation was 92%, dyspnea scale at rest 5/10
[facility] 01/16/24: FVC 1.99/65%, FEV1 0.82/38%, ratio 41
PFT 10/16/23 ([facility]): FVC 2.40/71%, FEV1 0.88/34%, ratio 37. TLC 4.64/74%, RV 2.19/93%, DLCO 11.41/51%.
Total time spent today was 36 minutes for this encounter. Time includes reviewing laboratory test/imaging results, reviewing pertinent medical records, obtaining and reviewing medical history, performing an appropriate exam, ordering medications,
tests and procedures. Time also includes documentation of this encounter, coordinating patient care and communicating with other healthcare professionals. Total time does not include separately billed tests performed on this date of service.
Subjective Data
-
Date of Service:
Date of Service: August 08, 2024
Chief Complaint: Pulmonary Follow Up and Dyspnea Follow Up
Subjective:
Patient was seen and evaluated today at bedside. Patient's daughter, Abby, at bedside and all questions were answered. No acute events reported overnight. Currently on 3 L/min nasal cannula and he is breathing comfortably, saturating 98%. He
denies chest pain, DENSON, nausea, vomiting, diarrhea, fevers or chills.
Review of Systems
General: Other (Negative unless mentioned above)
Objective Data
Data Reviewed
Vital Signs / I&O / Oxygen:
Vital Signs
Temp Pulse Resp BP Pulse Ox
98.1 F 76 16 144/68 99
08/08/24 11:20 08/08/24 11:27 08/08/24 11:27 08/08/24 11:20 08/08/24 11:27
Intake and Output
08/07/24 08/08/24 08/09/24
06:59 06:59 06:59
Intake Total 1200 / 1200 1919 / 1919
Output Total 2500 / 2500 2069
Balance -1300 / -1300 -150 / -150
SaO2 99
Nasal Cannula flow liters per 3
minute
Physical Exam
General: Respiratory Distress (n), Comfortable, Chills (n) and Sweats (n)
HEENT: Normocephalic, Anicteric and Moist Mucous Membranes
Cardiovascular: S1-S2, Murmur (JUDI across precordium), Peripheral Edema (Trace LE edema bilaterally) and Other (Click heard upon S2)
Respiratory: Wheeze (n), Crackles (Bilaterally), Rhonchi (n), Non-Labored Respirations, Accessory Resp Muscle Use (n) and Stridor (n)
GI: Soft, Non Distended, Non Tender and Normal Bowel Sounds
Neurology: Awake, Alert and Tremors (n)
Skin: Warm, Dry, Cyanosis (n), Jaundice (n) and Rash (n)
Labs/Micro/Reports
Lab Data
08/08/24 07:13
08/08/24 07:13
[2024-08-08] MEDS: KCL 40 MEQ PO (10:17)
--- NOTE | 2024-08-08 10:39 | W.PN.HOSP.TC ---
Today's Communication/Plan
-
Diuresis
Assessment / Plan
Assessment / Plan
72-year-old male presented with COPD and CHF. Pacemaker interrogation found to have less than 1 month of battery left
ECHO 08/06/24: EF 55 to 60%, mild concentric LVH, MAC, mild to moderate MR, bioprosthetic aortic valve with mean gradient of 5 mmHg, no AI, mild TR, PAP 45 mmHg, mild pulmonary hypertension
CVS: S1-S2 normal, SM at apex
Chest: CTA B/L
Abdomen: Soft, NT / Bowel sounds present
Extremities: Bilateral pedal edema
# Acute on Chronic respiratory failure (on 2 to 3 L of oxygen as OP)
Continue prednisone 40 mg daily
Down to 3 L now
# Acute on chronic HFpEF
Follows with Dr. Edmonds at [facility]
Continue IV Lasix
Follow weights/intake output charting
May need to start SGLT2 inhibitors at some point
Weight was 78.5 kg on admission 74.9 kg today
# Hypokalemia-replace potassium
# COPD exacerbation
Patient maintained on Breztri, albuterol, Zithromax and Daliresp
Chronic hypoxic and hypercapnic respiratory failure
Ex-smoker quit in 2018
# Diabetes-on Lantus 15 to 30 units at night and sliding scale coverage as outpatient
Currently on Lantus 25 units and NovoLog 16 AC
# Pacemaker placement 2012. For generator change on 08/10
# Hyperlipidemia-continue Zetia, statin
# Prostate disease-continue finasteride and Flomax
# Coronary disease
# History of acute kidney injury requiring temporary hemodialysis in 2012
# Aortic valve replacement 2010 with redo with aortic repair 2012
# Recurrent atrial fibrillation-on Cardizem. Maintained on aspirin and Plavix instead of anticoagulation due to hemoptysis
# CVA March 2024
# Rheumatoid arthritis on prednisone 10 mg as outpatient
# Sleep apnea-continue BiPAP with oxygen at night
# Chronic pain narcotic dependent-continue with 20 mg twice daily, oxycodone 10 mg Htay he
# Anxiety and depression continue Remeron, Paxil, Seroquel
# Compression fracture L1
# History of partial left lower lobectomy in 1998
# Anemia-of chronic disease
# AAA s/p EVAR 2008
# Ambulatory dysfunction, walks with walker
# DVT prophylaxis-Lovenox
# Full code
Discussed with at bedside
Anticipated Discharge: > 48 hours
Subjective/Interval History
-
Date of Service: August 08, 2024
Objective Data
-
Labs:
Laboratory Results
08/08/24
07:13
WBC 8.8
Hgb 9.4 L
Hct 33.0 L
Plt Count 312
Sodium 140
Potassium 3.2 L D
Chloride 90 L
Carbon Dioxide 45 H
BUN 32 H
Creatinine 0.8
Glucose 138 H
Calcium 8.5
Vital Signs:
Vital Signs
Temp Pulse Resp BP Pulse Ox
97.9 F 78 16 144/68 99
08/08/24 07:40 08/08/24 07:53 08/08/24 07:53 08/08/24 07:40 08/08/24 07:53
I&O
08/07/24 08/08/24 08/09/24
06:59 06:59 06:59
Intake Total 1200 / 1200 1919 / 1919
Output Total 2500 / 2500 2069
Balance -1300 / -1300 -150 / -150
[2024-08-08 12:09] LABS: Magnesium 2.3 mg/dl (1.6-2.3)
[2024-08-08 12:29] LABS: Glucose - Point of Care 112 mg/dl (70-99)
[2024-08-08] MEDS: NOVOLOG FLEXPEN-HIGH RESISTANCE 1 UNITS SC (13:12)
[2024-08-08] MEDS: NOVOLOG FLEXPEN SC (13:12)
[2024-08-08 13:50] LABS: Anisocytosis Slight; Normal RBC Morphology No
[2024-08-08 13:52] LABS: Stomatocytes FEW
[2024-08-08 13:53] LABS: Ovalocytes FEW
[2024-08-08 13:54] LABS: Schistocytes RARE
[2024-08-08 16:34] LABS: Glucose - Point of Care 342 mg/dl (70-99)
[2024-08-08] MEDS: NOVOLOG FLEXPEN-HIGH RESISTANCE 10 UNITS SC (17:05)
[2024-08-08] MEDS: NOVOLOG FLEXPEN 16 UNITS SC (17:05)
[2024-08-08] MEDS: LOVENOX 40 MG SC (17:06)
[2024-08-08 20:06] LABS: Glucose - Point of Care 366 mg/dl (70-99)
[2024-08-08 21:29] LABS: Glucose - Point of Care 280 mg/dl (70-99)
[2024-08-08] MEDS: LANTUS 0.25 UNITS SC (21:35)
[2024-08-08] MEDS: ZETIA 10 MG PO (21:37)
[2024-08-08] MEDS: CARDIZEM CD 120 MG PO (21:38)
[2024-08-08] MEDS: FLOMAX 0.4 MG PO (21:39)
[2024-08-08] MEDS: PRAVACHOL 20 MG PO (21:39)
[2024-08-08] MEDS: SEROQUEL 50 MG PO (21:39)
[2024-08-08] MEDS: REMERON ODT 30 MG PO (21:39)
[2024-08-09] VITALS (7 sets, daily range): BP systolic 127–136; BP diastolic 63–67; BMI 26.4
[2024-08-09 05:51] LABS: % Basophils 0.1 % (0-2); % Eosinophils 0.6 % (0-6); % Immature Granulocytes 0.5 % (0-0.5); % Lymphocytes 15.5 % (20.5-51.1); % Monocytes 9.5 % (1.7-9.3); % Neutrophils 73.8 % (42.2-75.2); Absolute Eosinophils 0.1 10^3/uL (0-0.7); Absolute Lymphocytes 1.2 10^3/uL (1.2-3.4); Absolute Monocytes 0.8 10^3/uL (0.1-0.6); Absolute Neutrophils 5.8 10^3/uL (1.4-6.5); Hematocrit 32.7 % (39.0-52.0); Hemoglobin 9.8 g/dL (13.0-18.0); Mean Corpuscular Hgb 24.4 pg (27.0-31.0); Mean Corpuscular Volume 81.5 fL (80.0-94.0); Mean Platelet Volume 9.7 fL (7.4-10.4); Nucleated Red Blood Cells % 0 % (-); Platelet Count 323 10^3/uL (130-400); Red Blood Cell Count 4.01 10^6/uL (4.70-6.10); Red Cell Dist. Width 15.1 % (11.5-14.5); White Blood Cell Count 7.9 10^3/uL (4.8-10.8)
[2024-08-09 06:17] LABS: Blood Urea Nitrogen 33 mg/dl (9-20); Calcium 8.5 mg/dl (8.4-10.2); Chloride 90 mmol/L (98-107); Estimated Creatinine Clearance 64 ml/min; Glucose 125 mg/dl (70-99); Phosphorus 3.3 mg/dl (2.5-4.5); Potassium 3.8 mmol/L (3.5-5.1); Sodium 140 mmol/L (135-145); eGFR > 60.00
[2024-08-09 06:30] LABS: Carbon Dioxide 40 mmol/L (22-30)
[2024-08-09 07:20] LABS: Glucose - Point of Care 124 mg/dl (70-99)
[2024-08-09] MEDS: PULMICORT 0.5 MG INH ×2 (07:49→20:01)
[2024-08-09] MEDS: DUONEB 3 ML INH ×4 (07:49→20:01)
[2024-08-09] MEDS: PROTONIX 40 MG PO (08:20)
[2024-08-09] MEDS: DALIRESP 500 MCG PO (08:20)
[2024-08-09] MEDS: DOLOPHINE 20 MG PO ×2 (08:20→20:56)
[2024-08-09] MEDS: ASPIR LOW (ENTERIC COATED) 81 MG PO (08:20)
[2024-08-09] MEDS: DELTASONE 40 MG PO (08:20)
[2024-08-09] MEDS: PAXIL 20 MG PO (08:21)
[2024-08-09] MEDS: LASIX 40 MG IV ×2 (08:21→15:59)
[2024-08-09] MEDS: CARDIZEM CD 240 MG PO (08:21)
[2024-08-09] MEDS: PROSCAR 5 MG PO (08:21)
[2024-08-09] MEDS: FLUSH (NSS) 2 FLUSH IV ×2 (08:23→16:00)
[2024-08-09] MEDS: VALIUM 5 MG PO ×4 (08:42→21:49)
[2024-08-09] MEDS: NOVOLOG FLEXPEN-HIGH RESISTANCE 1 UNITS SC ×2 (09:05→12:41)
[2024-08-09] MEDS: NOVOLOG FLEXPEN 16 UNITS SC ×3 (09:06→17:18)
--- NOTE | 2024-08-09 09:35 | W.PN.HOSP.TC ---
Today's Communication/Plan
-
Wean O2 for sats above 92
Adjust insulin
for nbattery change tomorrow
Assessment / Plan
Assessment / Plan
72-year-old male presented with COPD and CHF. Pacemaker interrogation found to have less than 1 month of battery left
ECHO 08/06/24: EF 55 to 60%, mild concentric LVH, MAC, mild to moderate MR, bioprosthetic aortic valve with mean gradient of 5 mmHg, no AI, mild TR, PAP 45 mmHg, mild pulmonary hypertension
CVS: S1-S2 normal, SM at apex
Chest: CTA B/L
Abdomen: Soft, NT / Bowel sounds present
Extremities: Bilateral pedal edema
# Acute on Chronic respiratory failure (on 2 to 3 L of oxygen as OP)
Continue prednisone 40 mg daily
# Acute on chronic HFpEF
Follows with Dr. Edmonds at [facility]
Continue IV Lasix
Follow weights/intake output charting
May need to start SGLT2 inhibitors at some point
Weight was 78.5 kg on admission 74.2 kg today
# Hypokalemia-replaced potassium
# COPD exacerbation
Patient maintained on Breztri, albuterol, Zithromax and Daliresp
Chronic hypoxic and hypercapnic respiratory failure
Ex-smoker quit in 2018
# Diabetes-on Lantus 15 to 30 units at night and sliding scale coverage as outpatient
Use Lantus 25 units and NovoLog 20 AC
Sugars up from Steroids
Since being NPO will do 15 units of 25 units
# Pacemaker placement 2012. For generator change on 08/10
# Hyperlipidemia-continue Zetia, statin
# Prostate disease-continue finasteride and Flomax
# Coronary disease
# History of acute kidney injury requiring temporary hemodialysis in 2012
# Aortic valve replacement 2010 with redo with aortic repair 2012
# Recurrent atrial fibrillation-on Cardizem. Maintained on aspirin and Plavix instead of anticoagulation due to hemoptysis
# CVA March 2024
# Rheumatoid arthritis on prednisone 10 mg as outpatient
# Sleep apnea-continue BiPAP with oxygen at night
# Chronic pain narcotic dependent-continue with 20 mg twice daily, oxycodone 10 mg Htay he
# Anxiety and depression continue Remeron, Paxil, Seroquel
# Compression fracture L1
# History of partial left lower lobectomy in 1998
# Anemia-of chronic disease
# AAA s/p EVAR 2008
# Ambulatory dysfunction, walks with walker
# DVT prophylaxis-Lovenox
# Full code
Discussed with RN at bedside
Anticipated Discharge: 24 - 48 hours
Subjective/Interval History
-
Date of Service: August 09, 2024
Objective Data
-
Labs:
Laboratory Results
08/09/24
05:26
WBC 7.9
Hgb 9.8 L
Hct 32.7 L
Plt Count 323
Sodium 140
Potassium 3.8
Chloride 90 L
Carbon Dioxide 40 H
BUN 33 H
Creatinine 0.9
Glucose 125 H
Calcium 8.5
Vital Signs:
Vital Signs
Temp Pulse Resp BP Pulse Ox
98.1 F 74 16 136/65 98
08/09/24 08:00 08/09/24 08:00 08/09/24 08:00 08/09/24 08:00 08/09/24 08:00
I&O
08/08/24 08/09/24 08/10/24
06:59 06:59 06:59
Intake Total 1919 1660 / 166
Output Total 2069
Balance -150 / -150 -440 / -440
--- NOTE | 2024-08-09 09:41 | W.PN.CARDCBS ---
Today's Communication / Plan
-
Continue IV Lasix and consider change to oral Lasix in a.m. as patient is on stable 2 L oxygen which he is on at home
Generator change of pacemaker in a.m.
Impression / Plan
-
PCP: Dr. Cassia Mckeon
Cardiology: Dr. Edmonds at [facility]
Impression:
Acute on chronic hypoxic respiratory failure, chronically on 2-3L NC
Acute on chronic HFpEF
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
h/o AVR 2010 and redo AVR with root repair 2012
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
CAD with MIs 2012, details unknown
AAA s/p EVAR 2008
PAF, not OAC candidate given reported severe hemoptysis in setting of PNA 04/2024
DM 2
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
Ambulatory dysfunction, walks with walker
heart block s/p Medtronic PPM
RA on chronic prednisone
Daily narcotics for pain
Depression/anxiety
Echo 04/27/24 at [facility]: TDS, EF 55-60, mild concentric LVH, aortic valve not well visualized, ascending aorta mildly dilated at 3.6 cm, trivial pericardial effusion
ECHO 08/06/24: EF 55 to 60%, mild concentric LVH, MAC, mild to moderate MR, bioprosthetic aortic valve with mean gradient of 5 mmHg, no AI, mild TR, PAP 45 mmHg, mild pulmonary hypertension
Plan:
Weight continues to decrease with stable renal function.
Continue IV Lasix and consider change to oral Lasix on 08/10
He is on his stable 2 L of oxygen currently which he is on at home
PPM interrogation with battery at [facility], 1 month. d/w patient's primary carbon accountant via telephone 08/06. plan for generator change 08/10 here.
device interrogation also with over 4000 episodes of atrial arrhythmia noted since 03/2024. after discussion with primary carbon accountant, will start with increasing OP cardizem dose and uptitrate as able. alternative option would be for amiodarone,
appreciate pulm input, ok to start if needed from their standpoint in setting of patient's chronic COPD/emphysema
continue treatment for COPD per primary service. not BB candidate due to COPD.
he is on asa, plavix as OP. not felt to be OAC candidate given significant hemoptysis in setting of PNA earlier this year.
PREADMIT DATA:
-Patient came to [facility] today with increased SOB and dizziness starting last evening and is being admitted with acute HF and cardiology has been consulted. Patient lives in [place] and follows with Dr. Edmonds at [facility], patient has never been to
before. Patient is chronically on aspirin and Plavix for h/o CVA. He was not felt to be candidate for OAC given hemoptysis in setting of PNA 04/2024. He is also felt to be high risk candidate for watchman. Patient is chronically on Lasix 40 mg PO
daily, EF preserved by last echo 04/2024 as above. pro-BNP is 2900 and CXR with vascular congestion. He reports some LE edema and wheezing. Patient is chronically on oxygen at 2 L NC, but initially required NRB in ER, now requiring 5 L. Patient also
reportedly has a history of AVR in 2010 followed by redo AVR and aortic root repair in 2012 that was complicated by WA and NATA with transient dialysis for months, but renal function recovered. He also had his Medtronic PPM placed at that time.
Progress Note - [employer]
Subjective
Date of Service: August 09, 2024
No complaints. On his baseline 2 L of oxygen which he is on at home
Objective
Labs:
08/09/24 05:26
08/09/24 05:26
Labs
Hgb 9.8 g/dL (13.0-18.0) L 08/09/24 05:26
Hct 32.7 % (39.0-52.0) L 08/09/24 05:26
Plt Count 323 10^3/uL (130-400) 08/09/24 05:26
Sodium 140 mmol/L (135-145) 08/09/24 05:26
Potassium 3.8 mmol/L (3.5-5.1) 08/09/24 05:26
BUN 33 mg/dl (9-20) H 08/09/24 05:26
Creatinine 0.9 mg/dL (0.7-1.3) 08/09/24 05:26
Glucose 125 mg/dl (70-99) H 08/09/24 05:26
Vital Signs and I&O:
Vital Signs
Temp Pulse Resp BP Pulse Ox
98.1 F 74 16 136/65 98
08/09/24 08:00 08/09/24 08:00 08/09/24 08:00 08/09/24 08:00 08/09/24 08:00
Vital Signs
Temp Pulse Resp BP Pulse Ox
98.1 F 74 16 136/65 98
08/09/24 08:00 08/09/24 08:00 08/09/24 08:00 08/09/24 08:00 08/09/24 08:00
Intake & Output
08/07/24 08/08/24 08/09/24 08/10/24
06:59 06:59 06:59 06:59
Intake Total 1200 / 1200 1920 / 1920 1660 / 1660
Output Total 2500 / 2500 2069 / 2069 2099 / 2099
Balance -1300 / -1300 -150 / -150 -440 / -440
Physical Exam
Physical Exam
General: Well developed, well nourished in NAD.
Neck: Supple, no JVD, HJR, carotids +2 B/L, no bruits bilaterally.
Heart: Non displaced PMI, RRR, no murmurs, No S3, S4, no rubs.
Lungs: Scattered rales
Extremities: No clubbing, cyanosis or edema bilaterally.
Neuro: Grossly nonfocal, awake, alert and oriented x3.
--- NOTE | 2024-08-09 09:42 | W.PN.PUL3 ---
Today's Communication / Plan
-
Wean oxygen
Diuresis
Prednisone with taper back to 10mg daily (home dose)
Nebulizers
Pacemaker battery change tomorrow - keep NPO p MN, and half his lantus dose tonight
Assessment
-
73-year-old male with history of COPD, obstructive sleep apnea, former smoker quit 6 years ago followed by Dr. Caanda who also has a history of heart failure with preserved EF and known CAD presented with increasing shortness of breath and
decompensated heart failure-pulmonary consulted for possible amiodarone need for recurrent atrial tachycardia and COPD 08/06/2024.
Impression:
Acute HFpEF exacerbation
COPD with acute exacerbation
Chronic hypercapnia suspected with compensatory metabolic alkalosis
Hyperglycemia with elevated A1c-6.7 (08/06/2024) - now euglycemic
Mild anemia
Leukocytosis - now resolved
Conditions present prior to admission:
COPD on oxygen-followed by Dr. Canada-maintained on Breztri, albuterol, and Daliresp in addition to azithromycin as well as oxygen 2 L at rest, 3 L with activity
Former smoker-greater than [id number] quit 2018
MYKE on CPAP-BiPAP 12/6 cm with oxygen
CAD.
AVR 2010 and redo with root repair 2012.
PPM-2012.
Atrial tachycardia.
AAA 2008.
Diabetes.
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
ADL dysfunction.
RA on chronic prednisone 10 mg
Chronic pain/narcotics.
Depression.
Anxiety.
Cataract removal. Compression fracture L1. Partial left lower lobectomy-1998.
Plan
Respiratory decompensation likely a combination of CHF preserved EF as well as COPD
Supplement oxygen as needed-attempt to wean- of note, has home oxygen
Check ambulatory pulse oximetry prior to discharge
Mucolytics prn
Incentive spirometry encouraged
Continue DuoNebs QID + budesonide BID - home medications include Breztri and Daliresp
Prednisone 40 mg- will start to taper with eventual transition back down to chronic prednisone 10 mg for his RA
Cardiology following-correspondence reviewed
Atrial arrhythmias noted on pacemaker interrogation and amiodarone to be initiated-no pulmonary objections-will follow closely including PFTs as an outpatient
Battery life 1 month left-generator change scheduled tentatively for 08/10/2024
Diuresis continues as tolerated - currently on IV lasix 40mg BID
Monitor renal function, electrolytes, intake/output, lower extremity edema and weight
Replace electrolytes as needed
Monitor blood sugar with goal >100 and <180
Insulin supplementation as needed
Monitor hemoglobin
Transfuse as needed to keep Hb>7
DVT prophylaxis-on Lovenox
GI prophylaxis-on pantoprazole
Nutrition
Early mobilization/PT/OT
Patient follows with Dr. Canada-last seen 02/26/2024-will have him follow back up after hospitalization-had canceled 05/20/2024 appointment
Pulmonary service will continue to follow along while he remains hospitalized
Diagnostic data:
Chest x-ray 08/05/2024-mild interstitial prominence suggesting pulmonary vascular congestion
CT chest 03/09/2024-interstitial fibrotic changes mid and lower lung zones, no honeycombing, likely postinflammatory mild localized linear/nodular parenchymal scarring left lung base, chronic pancreatitis, mild generalized emphysematous changes
Echo 01/2023 ([facility]): Per cardiology correspondence, normal EF 50%, moderate MR, bioprosthetic aortic valve gradient stable.
6MWT 10/16/23 ([facility]): Total distance 330 ft, desaturation paulette 94%, heart rate 102, dyspnea scale 5/10.� Ended walk test due to shortness of breath
6MWT 01/16/24: total distance 300 feet, desaturated to 88% in the sixth minute, heart rate 81, dyspnea scale 9/10. Improved with 1 L, 93%. Of note, pre-ambulation saturation was 92%, dyspnea scale at rest 5/10
[facility] 01/16/24: FVC 1.99/65%, FEV1 0.82/38%, ratio 41
PFT 10/16/23 ([facility]): FVC 2.40/71%, FEV1 0.88/34%, ratio 37. TLC 4.64/74%, RV 2.19/93%, DLCO 11.41/51%.
Total time spent today was 38 minutes for this encounter. Time includes reviewing laboratory test/imaging results, reviewing pertinent medical records, obtaining and reviewing medical history, performing an appropriate exam, ordering medications,
tests and procedures. Time also includes documentation of this encounter, coordinating patient care and communicating with other healthcare professionals. Total time does not include separately billed tests performed on this date of service.
Subjective Data
-
Date of Service:
Date of Service: August 09, 2024
Chief Complaint: Pulmonary Follow Up and Dyspnea Follow Up
Subjective:
Pt seen this AM. Resting in bed in NAD. No acute events reported from overnight. Currently on 2L/min saturating 98%. He feels well. Denies chest pain, SOB at rest, DENSON, abd pain, N/V/f/c.
Review of Systems
General: Other (Negative unless mentioned above)
Objective Data
Data Reviewed
Vital Signs / I&O / Oxygen:
Vital Signs
Temp Pulse Resp BP Pulse Ox
98.1 F 74 16 136/65 98
08/09/24 08:00 08/09/24 08:00 08/09/24 08:00 08/09/24 08:00 08/09/24 08:00
Intake and Output
08/08/24 08/09/24 08/10/24
06:59 06:59 06:59
Intake Total 1919 / 1919 1660 / 166
Output Total 2069
Balance -150 / -150 -440 / -440
SaO2 98
Nasal Cannula flow liters per 4
minute
Physical Exam
General: Respiratory Distress (n), Comfortable, Chills (n) and Sweats (n)
HEENT: Normocephalic, Anicteric and Moist Mucous Membranes
Cardiovascular: S1-S2, Murmur (JUDI across precordium), Peripheral Edema (Trace LE edema bilaterally) and Other (Click heard upon S2)
Respiratory: Wheeze (n), Crackles (Bibasilar), Rhonchi (n), Non-Labored Respirations, Accessory Resp Muscle Use (n) and Stridor (n)
GI: Soft, Non Distended, Non Tender and Normal Bowel Sounds
Neurology: Awake, Alert and Tremors (n)
Skin: Warm, Dry, Cyanosis (n), Jaundice (n) and Rash (n)
Labs/Micro/Reports
Lab Data
08/09/24 05:26
08/09/24 05:26
[2024-08-09 11:42] LABS: Glucose - Point of Care 111 mg/dl (70-99)
[2024-08-09 17:10] LABS: Glucose - Point of Care 174 mg/dl (70-99)
[2024-08-09] MEDS: NOVOLOG FLEXPEN-HIGH RESISTANCE 2 UNITS SC (17:17)
[2024-08-09] MEDS: LOVENOX 40 MG SC (17:18)
--- NOTE | 2024-08-09 18:28 | PTCARENOTE ---
Pt reports feeling overwhelmed and anxious with tomorrows procedure to replace battery on his pacemaker. Pt on valium 5mg tid. Willcont to provide emotional support.
[2024-08-09 21:41] LABS: Glucose - Point of Care 169 mg/dl (70-99)
[2024-08-09] MEDS: CARDIZEM CD 120 MG PO (21:47)
[2024-08-09] MEDS: PRAVACHOL 20 MG PO (21:47)
[2024-08-09] MEDS: ZETIA 10 MG PO (21:49)
[2024-08-09] MEDS: SEROQUEL 50 MG PO (21:49)
[2024-08-09] MEDS: FLOMAX 0.4 MG PO (21:49)
[2024-08-09] MEDS: REMERON ODT 30 MG PO (21:49)
[2024-08-09] MEDS: LANTUS 0.15 UNITS SC (21:49)
[2024-08-10 00:56] LABS: Glucose - Point of Care 141 mg/dl (70-99)
[2024-08-10 03:33] VITALS: BP 137/68
[2024-08-10 06:00] VITALS: BMI 26.3
[2024-08-10 06:05] LABS: Glucose - Point of Care 106 mg/dl (70-99)
[2024-08-10] MEDS: NOVOLOG FLEXPEN SC (06:30)
[2024-08-10] MEDS: NOVOLOG FLEXPEN-HIGH RESISTANCE SC (06:30)
[2024-08-10] MEDS: PULMICORT 0.5 MG INH ×2 (07:33→19:08)
[2024-08-10] MEDS: DUONEB 3 ML INH ×4 (07:33→19:08)
[2024-08-10] MEDS: VANCOCIN 200 IV (07:41)
[2024-08-10 07:43] LABS: % Basophils 0.1 % (0-2); % Eosinophils 1.8 % (0-6); % Immature Granulocytes 0.6 % (0-0.5); % Lymphocytes 20.6 % (20.5-51.1); % Neutrophils 67.9 % (42.2-75.2); Absolute Eosinophils 0.1 10^3/uL (0-0.7); Absolute Immature Granulocytes 0.1 10^3/uL (0-0.05); Absolute Lymphocytes 1.6 10^3/uL (1.2-3.4); Absolute Monocytes 0.7 10^3/uL (0.1-0.6); Absolute Neutrophils 5.4 10^3/uL (1.4-6.5); Hematocrit 36.2 % (39.0-52.0); Mean Corp Hgb Conc. 27.6 g/dL (33.0-37.0); Mean Corpuscular Hgb 23.5 pg (27.0-31.0); Mean Platelet Volume 9.6 fL (7.4-10.4); Nucleated Red Blood Cells % 0 % (-); Platelet Count 339 10^3/uL (130-400); Red Blood Cell Count 4.26 10^6/uL (4.70-6.10); Red Cell Dist. Width 15.1 % (11.5-14.5); White Blood Cell Count 7.9 10^3/uL (4.8-10.8)
[2024-08-10 08:02] LABS: Albumin 3.1 g/dl (3.5-5.0); Blood Urea Nitrogen 29 mg/dl (9-20); Calcium 8.5 mg/dl (8.4-10.2); Chloride 91 mmol/L (98-107); Estimated Creatinine Clearance 58 ml/min; Glucose 114 mg/dl (70-99); Phosphorus 3.1 mg/dl (2.5-4.5); Potassium 3.4 mmol/L (3.5-5.1); Sodium 141 mmol/L (135-145); eGFR > 60.00
[2024-08-10] MEDS: AZACTAM 2000 MG IV (08:15)
[2024-08-10 08:24] LABS: Carbon Dioxide 38 mmol/L (22-30)
--- NOTE | 2024-08-10 08:44 | PN.DE.MGMTRT ---
Insulin Management
- -
08/10/2024: Diabetes Management F/U:
73 year old male admitted with c/o SOB/weakness - COPD exacerbation with CHF.
PMH: COPD, CHF, T2DM, CAD with prior ME, CVA with R sided residual deficit, daily narcotic use for pain control, Depression/Anxiety.
Prior to admission patient was taking 15 to 30 units of Lantus @ HS with ss NovoLog AC. A1C 6.7%, Cr .8, eGFR > 60.
Patient was off the unit for testing, I spoke with patient . She states she gives patient all insulin and tests his glucose. She states sometimes she give Lantus 15 @ hs but if glucose is elevated she may give him 30 units. The AC NovoLog she
uses a SS.
Pt awake, alert, offers no complaints, at bedside, able to discuss diabetes management
Pt remains on steroids- prednisone 40 mg po daily.
NPO for pacer generator change today. Received reduced dose of Lantus 15 units@ HS. AC NovoLog on hold
Glucose stable and in range, premeal 111 to 174, FBG 114 (v) this AM
Will make no changes to current regimen; resume AC NovoLog 16 units and Lantus 25 units after procedure.
Will follow and adjust insulin if needed.
Diabetes History
- -
Type of Diabetes: 2 requiring insulin
Pre-Admission Diabetes Regimen
08/10/24
06:49
Creatinine 1.0
Lab Results
Hemoglobin A1c 6.7 % (4.0-5.6) H 08/06/24 05:06
Insulin Pump Settings
IP Diabetes Regimen
08/09/24 08/09/24 08/09/24
11:40 17:08 21:37
Glucose
POC Glucose 111 H 174 H 169 H
08/10/24 08/10/24 08/10/24
00:50 06:04 06:49
Glucose 114 H
POC Glucose 141 H 106 H
Meal type: Dinner
Meal type: Lunch
Amount consumed: 75%
Amount consumed: 50%
Patient Education
--- NOTE | 2024-08-10 09:03 | ITS.CL.PACE ---
Casting Technician - Pacemaker Implant
Pacemaker Implant
Procedure Report:
PACEMAKER GENERATOR CHANGE
Date of Procedure: August 10, 2024
Primary turpentiner: [facility]
PROCEDURES:
1. Removal of dual chamber PPM generator at [facility]
2. Implant of new dual chamber PPM generator
INDICATION FOR PROCEDURE:
1. PPM generator at [facility]
2. Non-reversible symptomatic bradycardia due to third degree atrioventricular block
The patient was prepped and draped in sterile fashion. Lidocaine with epi was used for local anesthesia. An incision was made along the previous incision and the device and leads were carefully dissected from the pocket. Hemostasis was obtained
with electrocautery. The leads were from the device header and tested using an external analyzer. The pocket was liberally irrigated with antibiotic solution. Once testing (see below) showed adequate and stable function, the leads were
connected to the generator header and the leads and generator were placed within the pocket. The pocket was closed in the typical fashion.
EXPLANTED PPM GENERATOR:
Medtronic, implanted March 20, 2013
IMPLANTED PPM GENERATOR:
Medtronic [id number], SN [id number] [id number] G
RETAINED LEADS:
Existing RA lead: Medtronic [id number], implanted March 20, 2013
Existing RV lead: Medtronic [id number], implanted March 20, 2013
DEVICE TESTING:
Sensing: RA 6.3 mV, RV n/a
Capture: RA 0.75 V @ 0.4ms, RV 0.75 V @ 0.4ms
Ohms: RA 342, RV 437
FINAL PROGRAMMING
Rusty Pacing: DDDR 70-130 ppm
COMPLICATIONS:
None
CONCLUSIONS:
1. Successful explant of dual chamber permanent pacemaker
2. Successful implant of dual chamber permanent pacemaker
RECOMMENDATIONS:
In-Office wound check in 7-10 days. [facility]
Copy to: [facility]
--- NOTE | 2024-08-10 09:16 | W.PN.PUL3 ---
Today's Communication / Plan
-
Doing well, near baseline wean of O2 (2L at home, 3L with exertion)
Transitioned to PO prednisone and lasix, continue at discharge
Encouraged ambulation/OOB
Discharge planning per team
OP Pulm FU already arranged wtih Dr Canada
Discussed plan of care with patient
Assessment
-
73-year-old male with history of COPD, obstructive sleep apnea, former smoker quit 6 years ago followed by Dr. Canada who also has a history of heart failure with preserved EF and known CAD presented with increasing shortness of breath and
decompensated heart failure-pulmonary consulted for possible amiodarone need for recurrent atrial tachycardia and COPD 08/06/2024.
Impression:
Acute HFpEF exacerbation
COPD with acute exacerbation
Chronic hypercapnia suspected with compensatory metabolic alkalosis
Hyperglycemia with elevated A1c-6.7 (08/06/2024) - now euglycemic
Mild anemia
Leukocytosis - now resolved
Conditions present prior to admission:
COPD on oxygen-followed by Dr. Canada-maintained on Breztri, albuterol, and Daliresp in addition to azithromycin as well as oxygen 2 L at rest, 3 L with activity
Former smoker-greater than [id number] quit 2018
MYKE on CPAP-BiPAP 12/6 cm with oxygen
CAD.
AVR 2010 and redo with root repair 2012.
PPM-2012.
Atrial tachycardia.
AAA 2008.
Diabetes.
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
ADL dysfunction.
RA on chronic prednisone 10 mg
Chronic pain/narcotics.
Depression.
Anxiety.
Cataract removal. Compression fracture L1. Partial left lower lobectomy-1998.
Plan
Respiratory decompensation likely a combination of CHF preserved EF as well as COPD
Supplement oxygen as needed-attempt to wean- of note, has home oxygen
Currently on 3L, baseline use of 2L, he uses 3L at times with exertion
Check ambulatory pulse oximetry prior to discharge
Mucolytics prn
Incentive spirometry encouraged
Continue DuoNebs QID + budesonide BID - home medications include Breztri and Daliresp
Prednisone 40 mg- will start to taper with eventual transition back down to chronic prednisone 10 mg for his RA
Cardiology following-correspondence reviewed
Atrial arrhythmias noted on pacemaker interrogation and amiodarone to be initiated-no pulmonary objections-will follow closely including PFTs as an outpatient
Battery life 1 month left-generator change scheduled tentatively for 08/10/2024
Diuresis continues as tolerated - currently on PO lasix 40mg
Monitor renal function, electrolytes, intake/output, lower extremity edema and weight
Replace electrolytes as needed
Monitor blood sugar with goal >100 and <180
Insulin supplementation as needed
Monitor hemoglobin
Transfuse as needed to keep Hb>7
DVT prophylaxis-on Lovenox
GI prophylaxis-on pantoprazole
Nutrition
Early mobilization/PT/OT
Patient follows with Dr. Canada-last seen 02/26/2024-will have him follow back up after hospitalization-had canceled 05/20/2024 appointment
Discharge planning per team in next 24 hours
Diagnostic data:
Chest x-ray 08/05/2024-mild interstitial prominence suggesting pulmonary vascular congestion
CT chest 03/09/2024-interstitial fibrotic changes mid and lower lung zones, no honeycombing, likely postinflammatory mild localized linear/nodular parenchymal scarring left lung base, chronic pancreatitis, mild generalized emphysematous changes
Echo 01/2023 ([facility]): Per cardiology correspondence, normal EF 50%, moderate MR, bioprosthetic aortic valve gradient stable.
6MWT 10/16/23 ([facility]): Total distance 330 ft, desaturation paulette 94%, heart rate 102, dyspnea scale 5/10.� Ended walk test due to shortness of breath
6MWT 01/16/24: total distance 300 feet, desaturated to 88% in the sixth minute, heart rate 81, dyspnea scale 9/10. Improved with 1 L, 93%. Of note, pre-ambulation saturation was 92%, dyspnea scale at rest 5/10
[facility] 01/16/24: FVC 1.99/65%, FEV1 0.82/38%, ratio 41
PFT 10/16/23 ([facility]): FVC 2.40/71%, FEV1 0.88/34%, ratio 37. TLC 4.64/74%, RV 2.19/93%, DLCO 11.41/51%.
-----
Total time spent today was 50 minutes for this encounter. Time includes reviewing laboratory test/imaging results, reviewing pertinent medical records, obtaining and reviewing medical history, performing an appropriate exam, ordering medications,
tests and procedures. Time also includes documentation of this encounter, coordinating patient care and communicating with other healthcare professionals. Total time does not include separately billed tests performed on this date of service.
Subjective Data
-
Date of Service:
Date of Service: August 10, 2024
Chief Complaint: Pulmonary Follow Up and Dyspnea Follow Up
Subjective:
No acute events ON, SOB is improving
No new complaints
Ambulating well in room
Objective Data
Data Reviewed
Vital Signs / I&O / Oxygen:
Vital Signs
Temp Pulse Resp BP Pulse Ox
98.2 F 78 18 137/68 90
08/10/24 03:33 08/10/24 07:36 08/10/24 07:36 08/10/24 03:33 08/10/24 07:36
Intake and Output
08/09/24 08/10/24 08/11/24
06:59 06:59 06:59
Intake Total 1660 / 1660 480 / 480
Output Total 2099 / 2099 1924 / 1924
Balance -440 / -440 -1445 / -1445
SaO2 90
Nasal Cannula flow liters per 2
minute
Physical Exam
General: Respiratory Distress (n), Comfortable, Chills (n) and Sweats (n)
HEENT: Normocephalic, Anicteric and Moist Mucous Membranes
Cardiovascular: S1-S2, Murmur (JUDI across precordium), Peripheral Edema (Trace LE edema bilaterally) and Other (Click heard upon S2)
Respiratory: Wheeze (n), Crackles (Bibasilar), Rhonchi (n), Non-Labored Respirations, Accessory Resp Muscle Use (n) and Stridor (n)
GI: Soft, Non Distended, Non Tender and Normal Bowel Sounds
Neurology: Awake, Alert, Oriented, No Motor Deficits and Tremors (n)
Skin: Warm, Dry, Cyanosis (n), Jaundice (n) and Rash (n)
Labs/Micro/Reports
Lab Data
08/10/24 06:49
08/10/24 06:49
[2024-08-10 09:22] VITALS: BP 139/65
[2024-08-10 10:16] LABS: Glucose - Point of Care 178 mg/dl (70-99)
[2024-08-10 10:20] VITALS: BP 137/62
[2024-08-10] MEDS: LASIX 40 MG IV (11:06)
[2024-08-10] MEDS: DALIRESP 500 MCG PO (11:06)
[2024-08-10] MEDS: PAXIL 20 MG PO (11:06)
[2024-08-10] MEDS: PROTONIX 40 MG PO (11:06)
[2024-08-10] MEDS: DOLOPHINE 20 MG PO ×2 (11:06→20:08)
[2024-08-10] MEDS: CARDIZEM CD 240 MG PO (11:07)
[2024-08-10] MEDS: ASPIR LOW (ENTERIC COATED) 81 MG PO (11:07)
[2024-08-10] MEDS: VALIUM 5 MG PO ×3 (11:13→22:56)
[2024-08-10] MEDS: NOVOLOG FLEXPEN 16 UNITS SC ×2 (11:17→18:20)
[2024-08-10 11:20] VITALS: BP 141/69
[2024-08-10] MEDS: NOVOLOG FLEXPEN-HIGH RESISTANCE 2 UNITS SC (11:23)
--- NOTE | 2024-08-10 11:27 | W.PN.HOSP.TC ---
Today's Communication/Plan
-
cards recs
s/p ppm generator change
prednisone taper
switch to po lasix
start dispo efforts
Assessment / Plan
Assessment / Plan
72-year-old male presented with COPD and CHF. Pacemaker interrogation found to have less than 1 month of battery left
ECHO 08/06/24: EF 55 to 60%, mild concentric LVH, MAC, mild to moderate MR, bioprosthetic aortic valve with mean gradient of 5 mmHg, no AI, mild TR, PAP 45 mmHg, mild pulmonary hypertension
# Acute on Chronic respiratory failure (on 2 to 3 L of oxygen as OP)
Continue prednisone 40 mg daily
# Acute on chronic HFpEF
Follows with Dr. Edmonds at [facility]
Switch IV lasix to po 40mg daily
Follow weights/intake output charting
May need to start SGLT2 inhibitors at some point
lost weight
# Hypokalemia-replace potassium
# COPD exacerbation
Patient maintained on Breztri, albuterol, Zithromax and Daliresp
Chronic hypoxic and hypercapnic respiratory failure
Ex-smoker quit in 2018'
on prednisone taper regimen
# Diabetes-on Lantus 15 to 30 units at night and sliding scale coverage as outpatient
Use Lantus 25 units and NovoLog at 16u AC currently
Sugars up from Steroids
# Pacemaker placement 2012. For generator change on 08/10
# Hyperlipidemia-continue Zetia, statin
# Prostate disease-continue finasteride and Flomax
# Coronary disease
# History of acute kidney injury requiring temporary hemodialysis in 2012
# Aortic valve replacement 2010 with redo with aortic repair 2012
# Recurrent atrial fibrillation-on Cardizem. Maintained on aspirin and Plavix instead of anticoagulation due to hemoptysis
# CVA March 2024
# Rheumatoid arthritis on prednisone 10 mg as outpatient
# Sleep apnea-continue BiPAP with oxygen at night
# Chronic pain narcotic dependent-continue with methadone 20 mg twice daily, oxycodone 10 mg prn
# Anxiety and depression continue Remeron, Paxil, Seroquel
# Compression fracture L1
# History of partial left lower lobectomy in 1998
# Anemia-of chronic disease
# AAA s/p EVAR 2008
# Ambulatory dysfunction, walks with walker
# DVT prophylaxis-Lovenox
# Full code
Discussed with spouse at bedside in details .
Anticipated Discharge: Within 24 hours
Subjective/Interval History
-
Date of Service: August 10, 2024
seen post PPM generator change
Objective Data
-
Labs:
Laboratory Results
08/10/24
06:49
WBC 7.9
Hgb 10.0 L
Hct 36.2 L
Plt Count 339
Sodium 141
Potassium 3.4 L
Chloride 91 L
Carbon Dioxide 38 H
BUN 29 H
Creatinine 1.0
Glucose 114 H
Calcium 8.5
Vital Signs:
Vital Signs
Temp Pulse Resp BP Pulse Ox
97.3 F 91 18 137/62 91
08/10/24 10:20 08/10/24 11:16 08/10/24 11:16 08/10/24 10:20 08/10/24 11:16
I&O
08/09/24 08/10/24 08/11/24
06:59 06:59 06:59
Intake Total 1660 / 1660 480 / 480
Output Total 2099 / 2099
Balance -440 / -440 -1445 / -1445
Physical Exam
-
General: Appears Chronically Ill
HEENT: Normocephalic, Atraumatic, Moist Mucous Membranes and Oxygen
Respiratory: Clear to Auscultation
Cardiac: Regular Rhythm, S1/S2 and Other (Left upper chest wall ppm site dressing noted. ); Negative Murmur, Rub or Gallop
GI: Soft, Nontender, Nondistended and Normal Bowel Sounds; Negative Organomegaly
Rectal: Deferred by Provider
Musculoskeletal: No Clubbing, No Cyanosis and No Edema
Skin: Negative Rash
Neuro: Awake, No Motor Deficits and Nonfocal/Grossly Intact
Psych: Calm
Data Reviewed
-
Total Time Spent with Patient (in minutes): 55
Labs: Discussed with Nurse, Discussed with Patient and Discussed with Family
[2024-08-10] MEDS: DELTASONE 40 MG PO (11:40)
[2024-08-10] MEDS: PROSCAR 5 MG PO (11:40)
[2024-08-10] MEDS: KCL 40 MEQ PO (11:41)
[2024-08-10 12:33] LABS: Glucose - Point of Care 338 mg/dl (70-99)
--- NOTE | 2024-08-10 12:59 | PTCARENOTE ---
pt back from lab, ppm site id cdi. pt ate breakfast and tolerated well. notified ward coles about pt not wanting iv potassium, changed to PO. will give as ordered. pt educated on plan of care for the evening and pt verbalized understanding.
at bedside visiting. call michael within reach.
[2024-08-10 15:30] VITALS: BP 113/61
--- NOTE | 2024-08-10 15:50 | CM ---
Addendum entered by Sandra De La Rosa 08/11/24 08:52:
After hours VM from admissions
[place] [facility] plan termed Apr 2024
Only active plan is [place] [facility]
Original Note:
CM reviewed chart and ADC tomorrow
Pt with ICD battery change today- awaiting on post procedure PT/OT
Pt had previously declined VN
Call to admissions to confirm insurance
Pt listed as [place] [facility]
Cards scanned in on file are [place] [facility] and [place] [facility]
Admissions will look into insurance and whether pt has [facility]
Discharge Disposition- anticipate home, watch for VN needs
--- NOTE | 2024-08-10 17:18 | PTCARENOTE ---
pt continues to be paced on the monitor, hr in the 80s, vss. pt offers no complaints at this time. pt has been napping on and off throughout the day. PPM is CDI. pt educated on plan of care and pt verbalized understanding. call michael within reach.
[2024-08-10 17:50] LABS: Glucose - Point of Care 354 mg/dl (70-99)
[2024-08-10] MEDS: NOVOLOG FLEXPEN-HIGH RESISTANCE 12 UNITS SC (18:19)
[2024-08-10] MEDS: LOVENOX 40 MG SC (18:19)
[2024-08-10 19:30] VITALS: BP 124/54
[2024-08-10] MEDS: VALIUM PO (20:15)
[2024-08-10 21:49] LABS: Glucose - Point of Care 384 mg/dl (70-99)
[2024-08-10] MEDS: LANTUS 0.25 UNITS SC (22:37)
[2024-08-10] MEDS: NOVOLOG FLEXPEN 5 UNITS SC (22:42)
[2024-08-10] MEDS: REMERON ODT 30 MG PO (22:43)
[2024-08-10] MEDS: CARDIZEM CD 120 MG PO (22:43)
[2024-08-10] MEDS: PRAVACHOL 20 MG PO (22:51)
[2024-08-10] MEDS: ZETIA 10 MG PO (22:51)
[2024-08-10] MEDS: FLOMAX 0.4 MG PO (22:51)
[2024-08-10] MEDS: SEROQUEL 50 MG PO (22:55)
[2024-08-11 00:33] LABS: Glucose - Point of Care 309 mg/dl (70-99)
[2024-08-11] MEDS: NOVOLOG FLEXPEN 10 UNITS SC (01:02)
[2024-08-11 03:32] LABS: Glucose - Point of Care 279 mg/dl (70-99)
[2024-08-11 03:43] VITALS: BP 136/76
[2024-08-11 05:42] VITALS: BMI 26.9
[2024-08-11 06:40] LABS: % Immature Granulocytes 0.8 % (0-0.5); % Lymphocytes 7.9 % (20.5-51.1); % Monocytes 6.1 % (1.7-9.3); % Neutrophils 85.2 % (42.2-75.2); Absolute Immature Granulocytes 0.1 10^3/uL (0-0.05); Absolute Lymphocytes 0.8 10^3/uL (1.2-3.4); Absolute Monocytes 0.7 10^3/uL (0.1-0.6); Absolute Neutrophils 9.1 10^3/uL (1.4-6.5); Hematocrit 31.9 % (39.0-52.0); Mean Corp Hgb Conc. 28.2 g/dL (33.0-37.0); Mean Corpuscular Hgb 23.9 pg (27.0-31.0); Mean Corpuscular Volume 84.6 fL (80.0-94.0); Mean Platelet Volume 9.5 fL (7.4-10.4); Nucleated Red Blood Cells % 0 % (-); Platelet Count 291 10^3/uL (130-400); Red Blood Cell Count 3.77 10^6/uL (4.70-6.10); Red Cell Dist. Width 14.7 % (11.5-14.5); White Blood Cell Count 10.6 10^3/uL (4.8-10.8)
[2024-08-11 07:08] LABS: Albumin 2.9 g/dl (3.5-5.0); Blood Urea Nitrogen 30 mg/dl (9-20); Calcium 8.4 mg/dl (8.4-10.2); Chloride 92 mmol/L (98-107); Estimated Creatinine Clearance 72 ml/min; Glucose 222 mg/dl (70-99); Phosphorus 3.8 mg/dl (2.5-4.5); Potassium 4.6 mmol/L (3.5-5.1); Sodium 137 mmol/L (135-145); eGFR > 60.00
[2024-08-11] MEDS: PULMICORT 0.5 MG INH (07:11)
[2024-08-11] MEDS: DUONEB 3 ML INH ×2 (07:11→11:00)
[2024-08-11 07:13] LABS: Carbon Dioxide 39 mmol/L (22-30)
--- NOTE | 2024-08-11 07:37 | PN.DE.MGMTRT ---
Insulin Management
- -
08/11/2024: Diabetes Management Follow up:
73 year old male admitted with c/o SOB/weakness - COPD exacerbation with CHF.
PMH: COPD, CHF, T2DM, CAD with prior [place], CVA with R sided residual deficit, daily narcotic use for pain control, Depression/Anxiety.
Prior to admission patient was taking 15 to 30 units of Lantus @ HS with ss NovoLog AC. A1C 6.7%, Cr .8, eGFR > 60.
Patient was off the unit for testing, I spoke with patient . She states she gives patient all insulin and tests his glucose. She states sometimes she gives Lantus 15 @ hs but if glucose is elevated she may give him 30 units. The AC NovoLog
she uses a SS.
Pt awake, alert, offers no complaints, at bedside, able to discuss diabetes management
Pt remains on steroids- prednisone 40 mg po daily.
08/09 HS lantus dose reduced to 15 units for procedure in AM.
08/10 glucose range 338 to 384, most likely attributed to reduced lantus dose on 08/09.
08/11 Received 25 units lantus @ hs with additional novolog 10 units. Fasting glucose this AM 279. Will increase HS lantus to 28 units and AC novolog to 20 units.
I discussed with patients and she verbalized understanding of new insulin regimen. She will test glucose before each meal and hs and report results to Dr. Mckeon for additional changes.
Will follow and adjust insulin if needed.
Diabetes History
- -
Type of Diabetes: 2 requiring insulin
Pre-Admission Diabetes Regimen
08/10/24 08/11/24
06:49 06:12
Creatinine 1.0 0.8
Lab Results
Hemoglobin A1c 6.7 % (4.0-5.6) H 08/06/24 05:06
Insulin Pump Settings
IP Diabetes Regimen
08/10/24 08/10/24 08/10/24
06:49 10:15 12:32
Glucose 114 H
POC Glucose 178 H 338 H
08/10/24 08/10/24 08/11/24
17:47 21:47 00:32
Glucose
POC Glucose 354 H 384 H 309 H
08/11/24 08/11/24
03:29 06:12
Glucose 222 H
POC Glucose 279 H
Meal type: Lunch
Meal type: Breakfast
Meal type: Breakfast
Amount consumed: 100%
Amount consumed: 100%
Amount consumed: 0
Patient Education
[2024-08-11 07:58] VITALS: BP 130/59
[2024-08-11 08:01] LABS: Glucose - Point of Care 229 mg/dl (70-99)
[2024-08-11] MEDS: ASPIR LOW (ENTERIC COATED) 81 MG PO (08:32)
[2024-08-11] MEDS: PROTONIX 40 MG PO (08:32)
[2024-08-11] MEDS: PAXIL 20 MG PO (08:32)
[2024-08-11] MEDS: PROSCAR 5 MG PO (08:32)
[2024-08-11] MEDS: CARDIZEM CD 240 MG PO (08:32)
[2024-08-11] MEDS: DALIRESP 500 MCG PO (08:32)
[2024-08-11] MEDS: LASIX 40 MG PO (08:33)
[2024-08-11] MEDS: VALIUM 5 MG PO ×2 (08:33→12:17)
[2024-08-11] MEDS: DOLOPHINE 20 MG PO (08:33)
[2024-08-11] MEDS: DELTASONE 30 MG PO (08:35)
[2024-08-11] MEDS: NOVOLOG FLEXPEN-HIGH RESISTANCE 4 UNITS SC (08:36)
[2024-08-11] MEDS: NOVOLOG FLEXPEN 16 UNITS SC (08:36)
--- NOTE | 2024-08-11 09:00 | W.PN.CARDCBS ---
Addendum entered and electronically signed by Johny Tolbert MD 08/11/24 15:55:
I saw and examined the patient.
The Proration Clerk's note was reviewed and I agree with the note.
Comment: Briefly, 73-year-old man past medical history of heart failure with preserved ejection fraction, prior AVR, known CAD with prior [place], CVA with residual right-sided deficit as well as COPD on home O2 who presents with worsening dyspnea
concerning for decompensated heart failure
Appears euvolemic today on exam following several days of IV diuresis
O2 requirement is back at baseline 2L
Agree with discharging on 40 mg daily p.o. Lasix
In addition, patient has history of heart block with Medtronic permanent pacemaker which was at [facility]
He underwent generator change yesterday 08/10/2024
Pacemaker site appears clean dry and intact
Plavix is on hold postprocedure until 08/13/2024
Outpatient follow-up with his primary dairy laboratory technician at [facility] has been arranged for this coming week
Original Note:
Today's Communication / Plan
-
Continue diltiazem 240 mg in a.m. 120 mg in p.m.
Resume Plavix 08/13/2024
Continue p.o. Lasix 40 mg
Outpatient cardiology follow-up has been arranged
Impression / Plan
-
PCP: Dr. Cassia Mckeon
Cardiology: Dr. Edmonds at [facility]
Impression:
Acute on chronic hypoxic respiratory failure, chronically on 2-3L NC
Acute on chronic HFpEF
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
h/o AVR 2010 and redo AVR with root repair 2012
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
CAD with MIs 2008, 2012, details unknown
AAA s/p EVAR 2008
PAF, not OAC candidate given reported severe hemoptysis in setting of PNA 04/2024
DM 2
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
Ambulatory dysfunction, walks with walker
heart block s/p Medtronic PPM
s/p Medtronic dual chamber PPM generator change 08/10
RA on chronic prednisone
Daily narcotics for pain
Depression/anxiety
Echo 04/27/24 at [facility]: TDS, EF 55-60, mild concentric LVH, aortic valve not well visualized, ascending aorta mildly dilated at 3.6 cm, trivial pericardial effusion
ECHO 08/06/24: EF 55 to 60%, mild concentric LVH, MAC, mild to moderate MR, bioprosthetic aortic valve with mean gradient of 5 mmHg, no AI, mild TR, PAP 45 mmHg, mild pulmonary hypertension
Plan:
-Patient presented with worsening shortness of breath and lower extremity edema.
-Likely multifactorial. Being treated for COPD exacerbation as well as acute heart failure
-weight up 3 pounds overnight but obtained with bed scale so likely accurate. Would repeat with standing scale. Appears to be euvolemic. Cr stable. Transitioned to oral Lasix 40 mg which is home dosing
-PPM interrogation this admission with battery at [facility]. s/p Medtronic dual chamber PPM generator change 08/10
-echo with results as above
-Device interrogation with over 4000 episodes of atrial arrhythmia noted since 03/2024. after discussion with primary dairy laboratory technician, Increased OP cardizem dose this admission (continue 240 mg in a.m. with addition of 120 mg in PM). Uptitrate as able.
Alternative option would be for amiodarone. Appreciate pulm input, ok to start if needed from their standpoint in setting of patient's chronic COPD/emphysema. Would need close monitoring of PFTs as outpatient. Can be decided as outpatient if Amio
was warranted.
-continue treatment for COPD per primary and pulmonary service. Currently on prednisone with taper. Not BB candidate due to COPD.
-he is on asa, plavix as OP. Not felt to be OAC candidate given significant hemoptysis in setting of PNA earlier this year. Resume Plavix 08/13/2024 per EP given generator change 08/10/2024
-CHF education
-could consider addition of SGLT2 inhibitor, defer to patient's primary dairy laboratory technician
-wean supp O2 as able, still on 2 LPM n/c
-PT/OT
PREADMIT DATA:
-[facility] with increased SOB and dizziness starting last evening and is being admitted with acute HF and cardiology has been consulted. Patient lives in [place] and follows with Dr. Edmonds at [facility], patient has never been to
before. Patient is chronically on aspirin and Plavix for h/o CVA. He was not felt to be candidate for OAC given hemoptysis in setting of PNA 04/2024. He is also felt to be high risk candidate for watchman. Patient is chronically on Lasix 40 mg PO
daily, EF preserved by last echo 04/2024 as above. pro-BNP is 2900 and CXR with vascular congestion. He reports some LE edema and wheezing. Patient is chronically on oxygen at 2 L NC, but initially required NRB in ER, now requiring 5 L. Patient also
reportedly has a history of AVR in 2010 followed by redo AVR and aortic root repair in 2012 that was complicated by NH and NATA with transient dialysis for months, but renal function recovered. He also had his Medtronic PPM placed at that time.
Progress Note - Cabin Equipment Supervisor
Subjective
Date of Service: August 11, 2024
Patient seen and examined. Patient resting comfortably in bed eating breakfast. Patient denies any cardiac symptoms.
Objective
Labs:
08/11/24 06:12
08/11/24 06:12
Labs
Hgb 9.0 g/dL (13.0-18.0) L 08/11/24 06:12
Hct 31.9 % (39.0-52.0) L 08/11/24 06:12
Plt Count 291 10^3/uL (130-400) 08/11/24 06:12
Sodium 137 mmol/L (135-145) 08/11/24 06:12
Potassium 4.6 mmol/L (3.5-5.1) D 08/11/24 06:12
BUN 30 mg/dl (9-20) H 08/11/24 06:12
Creatinine 0.8 mg/dL (0.7-1.3) 08/11/24 06:12
Glucose 222 mg/dl (70-99) H 08/11/24 06:12
Vital Signs and I&O:
Vital Signs
Temp Pulse Resp BP Pulse Ox
97.5 F 72 16 130/59 95
08/11/24 07:58 08/11/24 08:33 08/11/24 07:58 08/11/24 08:33 08/11/24 07:58
Vital Signs
Temp Pulse Resp BP Pulse Ox
97.5 F 72 16 130/59 95
08/11/24 07:58 08/11/24 08:33 08/11/24 07:58 08/11/24 08:33 08/11/24 07:58
Intake & Output
08/09/24 08/10/24 08/11/24 08/12/24
06:59 06:59 06:59 06:59
Intake Total 1660 / 1660 480 / 480 2160 / 2160
Output Total 2099 / 2099 1925 / 1925 2625 / 2625
Balance -440 / -440 -1445 / -1445 -465 / -465
Physical Exam
Physical Exam
GEN: No distress, awake, Ox3, sitting in bed wearing oxygen
HEENT: supple, anicteric, mmm
LUNGS: Mild rales at bilateral bases CTA, no wheezes/rales
CV: Reg, S1/S2, 1/6 syst murmur, no rub or gallop
Chest: Pressure dressing intact over pacemaker generator change site. Aquacel remains in place with mild dried heme. Mild ecchymosis noted however no evidence of hematoma.
ABD: soft, BS+, NT/ND
EXT: No edema, clubbing or cyanosis
NEURO: Gross non-focal
SKIN: No rash, warm, dry, pink ecchymosis noted on arms
[2024-08-11 11:00] VITALS: BP 140/65; PULSE 76; O2SAT 95
[2024-08-11 11:06] VITALS: BMI 26.7
--- NOTE | 2024-08-11 11:11 | W.PN.HOSP.TC ---
Today's Communication/Plan
-
prednisone taper
op card/pulm f/u
Assessment / Plan
Assessment / Plan
72-year-old male presented with COPD and CHF. Pacemaker interrogation found to have less than 1 month of battery left
ECHO 08/06/24: EF 55 to 60%, mild concentric LVH, MAC, mild to moderate MR, bioprosthetic aortic valve with mean gradient of 5 mmHg, no AI, mild TR, PAP 45 mmHg, mild pulmonary hypertension
# Acute on Chronic respiratory failure (on 2 to 3 L of oxygen as OP)
Continue prednisone 40 mg daily
# Acute on chronic HFpEF
Follows with Dr. Edmonds at [facility]
Switch IV lasix to po 40mg daily
Follow weights/intake output charting
May need to start SGLT2 inhibitors at some point
lost weight
# Hypokalemia-replace potassium
# COPD exacerbation
Patient maintained on Breztri, albuterol, Zithromax and Daliresp
Chronic hypoxic and hypercapnic respiratory failure
Ex-smoker quit in 2018'
on prednisone taper regimen
# Diabetes-on Lantus 15 to 30 units at night and sliding scale coverage as outpatient
Use Lantus 25 units and NovoLog at 16u AC currently
Sugars up from Steroids
# Pacemaker placement 2012. For generator change on 08/10
# Hyperlipidemia-continue Zetia, statin
# Prostate disease-continue finasteride and Flomax
# Coronary disease
# History of acute kidney injury requiring temporary hemodialysis in 2012
# Aortic valve replacement 2010 with redo with aortic repair 2012
# Recurrent atrial fibrillation-on Cardizem. Maintained on aspirin and Plavix instead of anticoagulation due to hemoptysis. Per cards to start Plavix on 08/13-Informed spouse.
# CVA March 2024
# Rheumatoid arthritis on prednisone 10 mg as outpatient
# Sleep apnea-continue BiPAP with oxygen at night
# Chronic pain narcotic dependent-continue with methadone 20 mg twice daily, oxycodone 10 mg prn
# Anxiety and depression continue Remeron, Paxil, Seroquel. Pt and spouse to decrease seroquel to 100mg qhs
# Compression fracture L1
# History of partial left lower lobectomy in 1998
# Anemia-of chronic disease
# AAA s/p EVAR 2008
# Ambulatory dysfunction, walks with walker
# Tremors -seroquel dose adjsuted
# DVT prophylaxis-Lovenox
# Full code
Discussed with spouse at bedside in details on 08/10 and 08/11
More than 30 minutes spent in discharge including
Final examination of the patient
Summarizing hospital stay
Instructions for continuing care to all relevant caregivers
Preparation of discharge records, prescriptions, and referral forms
Total time spent (in minutes): 55
Anticipated Discharge: Today
Subjective/Interval History
-
Date of Service: August 11, 2024
In good spirits
denies pain at PPM site
awake and talkative this morning
Objective Data
-
Labs:
Laboratory Results
08/11/24
06:12
WBC 10.6
Hgb 9.0 L
Hct 31.9 L
Plt Count 291
Sodium 137
Potassium 4.6 D
Chloride 92 L
Carbon Dioxide 39 H
BUN 30 H
Creatinine 0.8
Glucose 222 H
Calcium 8.4
Vital Signs:
Vital Signs
Temp Pulse Resp BP Pulse Ox
97.5 F 65 16 130/59 92
08/11/24 07:58 08/11/24 11:01 08/11/24 11:01 08/11/24 08:33 08/11/24 11:01
I&O
08/10/24 08/11/24 08/12/24
06:59 06:59 06:59
Intake Total 480 / 480 2160 / 2160
Output Total 1924 / 1924 2625 / 2624
Balance -1445 / -1445 -465 / -465
Physical Exam
-
General: Appears Chronically Ill
HEENT: Normocephalic, Atraumatic, Moist Mucous Membranes and Oxygen
Respiratory: Clear to Auscultation
Cardiac: Regular Rhythm, S1/S2 and Other (Left upper chest wall ppm site dressing noted. ); Negative Murmur, Rub or Gallop
GI: Soft, Nontender, Nondistended and Normal Bowel Sounds; Negative Organomegaly
Rectal: Deferred by Provider
Musculoskeletal: No Clubbing, No Cyanosis and No Edema
Skin: Negative Rash
Neuro: Awake, No Motor Deficits and Nonfocal/Grossly Intact
Psych: Calm
--- NOTE | 2024-08-11 11:20 | W.DCSUMMARY ---
Discharge Summary
Discharge Data
Date of Admission: 08/05/24
Date of Discharge: 08/11/24
-
Pending Results: No
Hospital Course
73-year male past medical history of chronic hypoxic respiratory failure, COPD, chronic HFrEF, pacemaker plantation, hyperlipidemia, BPH, CAD, aortic valve replacement, atrial fibrillation, stroke, rheumatoid arthritis, tremors, chronic opiate
dependent daily basis, anxiety, depression, AAA s/p repair, ambulatory dysfunction who is presenting from home with shortness of breath. Patient was found to be acute on chronic hypoxic respiratory failure. Hypoxemia was seen multifactorial
secondary to heart failure exacerbation and COPD exacerbation. Pulmonary and cardiology was consulted. Patient was started on IV Lasix and IV steroids. Upon further evaluation of pacemaker and it was found that patient had less than 1 month of
battery left. Electrophysiology was consulted. Patient underwent generator change. Patient responded well to diuresis and IV steroids. Patient was back to his baseline oxygenation. IV Lasix with transition to 40 mg p.o. daily his home regimen.
IV steroids were transitioned to p.o. taper regimen with prednisone. Also recommended to patient and spouse to decreased dose of Seroquel at bedtime. He did not want to stop.. Patient and family stated he would decrease it to 100 mg nightly.
Did explain to patient and spouse that patient is on multiple sedative medication with which puts him at high risk of having cardiopulmonary event as on methadone, oxycodone, Remeron and Seroquel. Patient and spouse understand and they would like
to continue with medication. However they did mention they would decrease Seroquel to 100 mg for now. Patient stated due to his RA he is always in pain and would like to continue with pain meds. Patient was awake alert and tolerating diet.
Patient was also found to be in atrial fibrillation/atrial tachycardia and Cardizem 120 mg nightly was added to his regimen. Patient will be discharged home with recommendation to hold Plavix and restarted 08/13/2024 per cardiology. Patient to
follow-up with his primary cardiology and enterprise account manager.
Discharge Plan
-
Patient Disposition: Home with Home Care
Discharge Diagnosis/Procedures: Acute on chronic hypoxic respiratory failure
Acute on chronic HFpEF
COPD exacerbation
Hypokalemia
Pacemaker generator change
Condition: Fair
Diet: 2 Gram Sodium, Diabetic, Carb Controlled and Restrict fluids to 48 oz
Activity: With assistance and As tolerated
Driving Restrictions: Not until seen by your Dr
Other Services: VN
Activity Restrictions/Additional Instructions:
Wound Care Instructions
R wrist skin tear-clean with saline, apply Vaseline gauze, gauze and jhony daily.
Evaluate for air mattress
Elevate heels off bed with pillows.
Pressure redistributing chair cushion (i.e. Air chair cushion).
Follow up with your master craftsman if your back scar starts to drain or gets red around it.
Instructions: *PCP/Other Production Support Supervisor Heart Failure Instructions
Stand Alone Forms: DC Inst - Implanted Device
Referrals:
Cristobal Canada MD [Active] - in two to four weeks
Cassia Mckeon MD [Family Provider] - in less than 1 week
Fred Edmonds MD [Non-Admitting Privileges] - 08/18/24 2:00 pm (Cardiology followup/post device incision check appointment with Michelle Mckay NP)
Prescriptions:
New
diltiazem HCl 120 mg Capsule,Extended Release 24hr
120 mg PO HS 30 Days Qty: 30 0RF
prednisone 10 mg Tablet
See Rx Instructions .ROUTE .COMPLEX Qty: 20 0RF
Rx Instructions:
Take By Mouth:
30 mg daily x3 days,20 mg daily x3 days,
10 mg daily continue chronic home dose
Continued
mirtazapine 30 mg tablet,disintegrating
30 mg translingual HS
methadone 10 mg tablet
20 mg PO BID
paroxetine HCl 20 mg tablet
20 mg PO DAILY
omeprazole 20 mg capsule,delayed release(DR/EC)
20 mg PO DAILY
finasteride 5 mg tablet
5 mg PO DAILY
diazepam 5 mg tablet
5 mg PO QID
ezetimibe 10 mg tablet
10 mg PO HS
insulin aspart U-100 [Novolog FlexPen U-100 Insulin] 100 unit/mL (3 mL) insulin pen
0 sliding scale dose SC MEALS
Patient Comments:
08/05/2024: Variable of 15 units
insulin glargine [Lantus Solostar U-100 Insulin] 100 unit/mL (3 mL) insulin pen
15 - 30 unit SC HS
roflumilast 500 mcg tablet
500 mcg PO DAILY
furosemide 40 mg tablet
40 mg PO DAILY
diltiazem HCl 240 mg capsule,extended release 24hr
240 mg PO DAILY
aspirin 81 mg Tablet,Delayed Release (Dr/Ec)
81 mg PO DAILY
tamsulosin 0.4 mg Capsule
0.4 mg PO HS
pravastatin 20 mg tablet
20 mg PO HS
Breztri Aerosphere 160-9-4.8 mcg/actuation Hfa Aerosol Inhaler
2 inh INHALATION R BID
Changed
quetiapine 200 mg tablet
100 mg PO HS Qty: 0 0RF
oxycodone 10 mg tablet
10 mg PO TID PRN (Reason: Pain) Qty: 0 0RF
Held
prednisone 10 mg tablet
10 mg PO DAILY
Hold Instructions: Resume on 08/18/24. Restart after taper regimen
clopidogrel 75 mg tablet
75 mg PO DAILY
Hold Instructions: Resume on 08/13/24.
Discharge Orders:
Discharge Patient (As Directed); Ordered 08/11/24
Ordered By: Abhijit Odell
Discharge Date and Time
Print Language: PERSIAN
[2024-08-11 11:30] VITALS: BP 140/65; PULSE 76; O2SAT 95
[2024-08-11 11:31] LABS: Glucose - Point of Care 194 mg/dl (70-99)
[2024-08-11 11:33] VITALS: BP 138/64
--- NOTE | 2024-08-11 12:04 | CM ---
Reviewed the chart notes and spoke with the patient and his spouse at the bedside. IMM reviewed and place on chart. VN consult received. Patient declines VN at this time. The patient's spouse will provide transportation home today. CM continues
to be available to patient/family and is monitoring medical plan for needs at discharge.
Plan: Discharge to home with no additional needs being identified at this time.
--- NOTE | 2024-08-11 13:13 | PTCARENOTE ---
Addendum entered by Natalia Castillo RN 08/11/24 14:08:
Discharge packet including HF education folder and information on pacemaker given to patient and patient's .
Original Note:
Patient discharged home. This RN removed patient's IV and tele pack. Discharge instructions and medications reviewed with patient and patient's spouse at bedside; both verbalized understanding. Prednisone taper reviewed. Plavix on hold until 08/13
and insulin dosing changed per diabetic SNOW RANGER. This RN reviewed changes with patient and patient's spouse, copy of diabetic SNOW RANGER's most recent report given to patient's spouse; both verbalized understanding of changes. Patient dressed and belongings
gathered in room with assistance of . Patient being transported home by , taken down to 's car at main lobby via staff escort and wheelchair.
== END 2024-08-11 14:35 | disposition home or self-care (01) | DRG 258 ==
LOC: 2 NORTH 16:51
PROVIDERS: Internal Medicine Cardiovascular Disease; Physician Assistant Medical; ADMITTING PHYSICIAN Hospitalist; CONSULT PHYSICIAN Internal Medicine Cardiovascular Disease; CONSULT PHYSICIAN Internal Medicine Critical Care Medicine; EMERGENCY PHYSICIAN Emergency Medicine; FAMILY PHYSICIAN Family Medicine
PROC: 0JH606Z Insertion of Pacemaker, Dual Chamber into Chest Subcutaneous Tissue and Fascia, Open Approach (ICD-10-PCS; 2024-08-10)
PROC: 0JPT0PZ Removal of Cardiac Rhythm Related Device from Trunk Subcutaneous Tissue and Fascia, Open Approach (ICD-10-PCS; 2024-08-10)
DX: I11.0 Hypertensive heart disease with heart failure (principal); J96.21 Acute and chronic respiratory failure with hypoxia; I69.351 Hemiplegia and hemiparesis following cerebral infarction affecting right dominant side; J44.1 Chronic obstructive pulmonary disease with (acute) exacerbation; F11.20 Opioid dependence, uncomplicated; I47.19 Other supraventricular tachycardia; I44.2 Atrioventricular block, complete; I25.10 Atherosclerotic heart disease of native coronary artery without angina pectoris; E78.5 Hyperlipidemia, unspecified; E11.65 Type 2 diabetes mellitus with hyperglycemia; F32.A Depression, unspecified; F41.9 Anxiety disorder, unspecified; G47.00 Insomnia, unspecified; J43.9 Emphysema, unspecified; I48.0 Paroxysmal atrial fibrillation; G47.33 Obstructive sleep apnea (adult) (pediatric); G89.29 Other chronic pain; E87.6 Hypokalemia; D63.8 Anemia in other chronic diseases classified elsewhere; N40.0 Benign prostatic hyperplasia without lower urinary tract symptoms; M06.9 Rheumatoid arthritis, unspecified; Z45.010 Encounter for checking and testing of cardiac pacemaker pulse generator [battery]; I25.2 Old myocardial infarction; Z99.81 Dependence on supplemental oxygen; Z95.3 Presence of xenogenic heart valve; Z91.041 Radiographic dye allergy status; Z91.040 Latex allergy status; Z88.2 Allergy status to sulfonamides; Z88.1 Allergy status to other antibiotic agents; Z88.0 Allergy status to penicillin; Z87.891 Personal history of nicotine dependence; Z79.02 Long term (current) use of antithrombotics/antiplatelets; Z79.4 Long term (current) use of insulin; Z79.52 Long term (current) use of systemic steroids; Z79.82 Long term (current) use of aspirin; Z79.899 Other long term (current) drug therapy; Z86.79 Personal history of other diseases of the circulatory system; Z86.16 Personal history of COVID-19
CPT/HCPCS: 33228; 71045; 80048; 80053; 80069; 82947; 82962; 83036; 83735; 83880; 84439; 84443; 84484; 85025; 85027; 93005; 93306; 93970; 94640; 96374; 96375; 97116; 97163; 97166; 97530; 97535; 99285; C1785

== ENCOUNTER 2025-01-15 19:01 | Emergency (ER) | payer OTHER, SELFPAY ==
[2025-01-15 19:04] VITALS: BP 154/85
[2025-01-15 19:11] VITALS: BP 154/85
[2025-01-15 20:00] VITALS: BP 174/71
[2025-01-15 21:00] VITALS: BP 142/70
[2025-01-15 21:00] LABS: % Basophils 0.3 % (0-2); % Eosinophils 0.1 % (0-6); % Immature Granulocytes 0.6 % (0-0.5); % Lymphocytes 3.3 % (20.5-51.1); % Monocytes 6.9 % (1.7-9.3); % Neutrophils 88.8 % (42.2-75.2); Absolute Immature Granulocytes 0.1 10^3/uL (0-0.05); Absolute Lymphocytes 0.4 10^3/uL (1.2-3.4); Absolute Monocytes 0.9 10^3/uL (0.1-0.6); Absolute Neutrophils 11.3 10^3/uL (1.4-6.5); Hematocrit 39.3 % (39.0-52.0); Hemoglobin 11.6 g/dL (13.0-18.0); Mean Corp Hgb Conc. 29.5 g/dL (33.0-37.0); Mean Corpuscular Hgb 24.8 pg (27.0-31.0); Mean Corpuscular Volume 84.2 fL (80.0-94.0); Mean Platelet Volume 9.5 fL (7.4-10.4); Nucleated Red Blood Cells % 0 % (-); Platelet Count 286 10^3/uL (130-400); Red Blood Cell Count 4.67 10^6/uL (4.70-6.10); Red Cell Dist. Width 14.7 % (11.5-14.5); White Blood Cell Count 12.7 10^3/uL (4.8-10.8)
[2025-01-15 21:01] LABS: Urine Albumin Negative (Neg - Trace); Urine Bilirubin Negative (Negative); Urine Character Clear (Clear); Urine Color Yellow; Urine Glucose Negative (Negative); Urine Ketone Negative (Negative); Urine Leukocyte Negative (Negative); Urine Nitrite Negative (Negative); Urine Occult Blood Negative (Negative); Urine Urobilinogen Negative (Neg - 1+)
[2025-01-15 21:16] LABS: ALT (SGPT) 10 U/L (0-50); AST (SGOT) 23 U/L (17-59); Albumin 3.7 g/dl (3.5-5.0); Alkaline Phosphatase 86 U/L (38-126); Blood Urea Nitrogen 17 mg/dl (9-20); Chloride 90 mmol/L (98-107); Estimated Creatinine Clearance 71 ml/min; Glucose 43 mg/dl (70-99); Potassium 3.7 mmol/L (3.5-5.1); Sodium 140 mmol/L (135-145); Total Bilirubin 0.5 mg/dl (0.2-1.3); Total Protein 6.5 g/dl (6.3-8.2); eGFR > 60.00
[2025-01-15] MEDS: DEXTROSE 50% SYRINGE 12.5 GRAMS IV (21:21)
[2025-01-15 21:35] LABS: Carbon Dioxide 44 mmol/L (22-30)
[2025-01-15 22:37] LABS: Glucose - Point of Care 178 mg/dl (70-99)
--- NOTE | 2025-01-15 23:33 | ED.GENMED ---
History of Present Illness
General
Chief Complaint: Fall
Source: patient and spouse
Exam Limitations: none
Time Seen by Provider: 01/15/25 20:17
Nursing documentation reviewed up to this point in time: agreed with
History of Present Illness
History of Present Illness:
Patient to ED for eval after fall. He states he tripped and fell walking into his bathroom. Hit head on floor. NO LOC. Sustaine skin tears to right forearm, left upper arm. He has a small bruise to right abdomen, complains of pain to right lat.
chest. Brought to ED by spouse for eval. Injury occurred 2 days ago.
Past History
Past History
ED Past Medical History: COPD, GERD, HTN, Hypercholesterolemia, IDDM and Psychiatric (anxiety)
Phy Exam
General Physical Exam
General Presentation: well appearing and no apparent distress
General age: appears stated age
General Skin: warm and dry
General Habitus: normal
General Mental: alert
Cardiovascular Exam
Cardiovascular Exam: regular rate/rhythm
Pulmonary Exam
Pulmonary Exam: no respiratory distress and decreased breath sounds
Chest Wall: Right lateral: tenderness
Gastrointestinal Exam
Gastrointestinal Exam: normal bowel sounds, soft, no organomegaly, no pulsatile mass, non distended and no cva tenderness
Palpation: left upper quadrant: No tenderness, left lower quadrant: No tenderness, right upper quadrant: Mild tenderness and right lower quadrant: No tenderness
Neurological Exam
Neurological Exam: alert, oriented x3, CN II-XII intact, no motor deficits, no sensory deficits, speech normal and normal gait
Jose Elias Coma Scale
Eye Opening: Spontaneous
Verbal Response: Oriented
Motor Response: Obeys Commands
GCS Total Score: 15
Musculoskeletal Exam
Musculoskeletal Exam: other (Pain to right lat chest)
Skin Exam
Skin Exam: other (Skin tear to right forearm, left upper arm. Bruising right abdomen)
Psychiatric Exam
Psychiatric Exam: normal mood/affect
Course
Orders/Labs/Results
Orders:
Orders
01/15/25 20:47
CT Head W/o Iv Contrast Urgent
Comment:
Reason For Exam: fall
Chest/Abd/Pelvis w Contrast CT [CT Chest/abd/pel W Iv Cont] Urgent
Comment:
Reason For Exam: trauma/fall
01/15/25 20:52
Complete Blood Count/With Diff Urgent
Comprehensive Metabolic Panel Urgent
Urinalysis Reflex To Culture Urgent
Date Specimen was Collected: 01/15/25
Time Specimen was Collected: 20:51
01/15/25 21:17
Dextrose 50%-Water [Dextrose 50% Syringe] 12.5 grams IV NOW STA
Abnormal Lab Results
01/15/25 01/15/25
20:52 22:35
WBC 12.7 H 10^3/uL
(4.8-10.8)
RBC 4.67 L 10^6/uL
(4.70-6.10)
Hgb 11.6 L g/dL
(13.0-18.0)
MCH 24.8 L pg
(27.0-31.0)
MCHC 29.5 L g/dL
(33.0-37.0)
RDW 14.7 H %
(11.5-14.5)
Abs Immat Gran (auto) 0.1 H 10^3/uL
(0-0.05)
Absolute Neuts (auto) 11.3 H 10^3/uL
(1.4-6.5)
Absolute Lymphs (auto) 0.4 L 10^3/uL
(1.2-3.4)
Absolute Monos (auto) 0.9 H 10^3/uL
(0.1-0.6)
Immature Gran % 0.6 H %
(0-0.5)
Neutrophils % 88.8 H %
(42.2-75.2)
Lymphocytes % 3.3 L %
(20.5-51.1)
Chloride 90 L mmol/L
(98-107)
Carbon Dioxide 44 H mmol/L
(22-30)
Glucose 43 L* mg/dl
(70-99)
POC Glucose 178 H mg/dl
(70-99)
01/15/25 20:52
01/15/25 20:52
Vital Signs
Initial and Last Documented VS:
Initial Vital Signs
Pulse Resp BP Pulse Ox
81 17 154/85 92
01/15/25 19:04 01/15/25 19:04 01/15/25 19:04 01/15/25 19:04
Last Documented Vital Signs
Temp Pulse Resp BP Pulse Ox
98.9 F 87 15 142/70 96
01/15/25 19:11 01/15/25 23:00 01/15/25 23:00 01/15/25 21:00 01/15/25 23:00
*Radiology
Radiology exam reviewed: radiology read reviewed
*Pulse Oximetry
Patient hypoxic: no
*Critical Care Note
Total Time (30-74mins, 75-104mins- exclusive of procedures): Not Applicable
Update Note
Update Note:
Labs reviewed. Initial glucose 46. Given D50 in ED with return to normal blood sugar. No further episodes of hypoglycemia while in ED. Xrays reviewed with patient and spouse. No fractures noted. CT without concerning findings. Will discharge
home, close follow up with PCP. Given instructions on s/s to return to ED and he is agreeable to plan
ED Attending Note
-
Portions of this chart may have been created with voice recognition software.� Occasional wrong word or��sound alike� substitutions may have occurred due to the inherent limitations of voice recognition software.
Discharge Plan
Departure
Patient Disposition: Home (Routine Discharge)
Date of Disposition: 01/15/25
Time of Disposition: 22:48
Patient with high blood pressure during this ER visit?: No
Condition: Good
Covid-19: Not Applicable
Discharge Problem:
Contusion, multiple sites, Head injury
Instructions: Wound Care (DC), Head Injury in Adults (DC), Contusion (DC)
Prescriptions:
No Action
prednisone 10 mg tablet
10 mg PO DAILY
methadone 10 mg tablet
20 mg PO BID
clopidogrel 75 mg tablet
75 mg PO DAILY
paroxetine HCl 20 mg tablet
30 mg PO DAILY
omeprazole 20 mg capsule,delayed release(DR/EC)
20 mg PO DAILY
finasteride 5 mg tablet
5 mg PO DAILY
diazepam 5 mg tablet
5 mg PO QID
ezetimibe 10 mg tablet
10 mg PO HS
insulin aspart U-100 [Novolog FlexPen U-100 Insulin] 100 unit/mL (3 mL) insulin pen
0 sliding scale dose SC MEALS
Patient Comments:
08/05/2024: Variable of 15 units
insulin glargine [Lantus Solostar U-100 Insulin] 100 unit/mL (3 mL) insulin pen
15 - 30 unit SC HS
roflumilast 500 mcg tablet
500 mcg PO DAILY
furosemide 40 mg tablet
80 mg PO DAILY
diltiazem HCl 240 mg capsule,extended release 24hr
240 mg PO DAILY
tamsulosin 0.4 mg Capsule
0.4 mg PO HS
pravastatin 20 mg tablet
20 mg PO HS
oxycodone 10 mg tablet
10 mg PO TID PRN (Reason: Pain) Qty: 0 0RF
ipratropium-albuterol 0.5 mg-3 mg(2.5 mg base)/3 mL Solution For Nebulization
3 ml INHALATION QID
ciclopirox 8 % Solution
1 applic TOPICAL HS
quetiapine 200 mg tablet
50 mg PO HS
diltiazem HCl 120 mg capsule,extended release 24hr
120 mg PO BID
Referrals:
UNKNOWN - PT DOES,NOT KNOW [Family Provider] -
Activity Restrictions/Additional Instructions:
Follow up with your family doctor next week.
Interventions
Interventions:
*Risk Screen - Suicide Last Done: 01/15/25 19:11
*General Assessment Last Done: 01/15/25 19:11
*Neglect/Abuse Screening Last Done: 01/15/25 19:11
*ED- Fall Risk Assessment Last Done: 01/15/25 19:11
*ED COVID-19 Vaccine History Last Done: 01/15/25 19:11
*Nursing Disposition Last Done: 01/15/25 23:30
ED-Musculoskeletal Assessment Last Done: 01/15/25 20:56
ED- Neurological Assessment Last Done: 01/15/25 20:57
ED-Skin Assessment Last Done: 01/15/25 20:57
Discharge Date and Time
Discharge Date/Time: 01/15/25 23:31
Print Language: MOHAWK
Skin Exam
Abrasion
Left Arm:
Description of abrasion: superfical/clean
Right Arm:
Description of abrasion: superfical/clean
== END 2025-01-15 23:31 | disposition home or self-care (01) ==
LOC: EMR 19:01
PROVIDERS: Nurse Practitioner; EMERGENCY PHYSICIAN Student in an Organized Health Care Education/Training Program
DX: S09.90XA Unspecified injury of head, initial encounter (principal); S30.1XXA Contusion of abdominal wall, initial encounter; S20.211A Contusion of right front wall of thorax, initial encounter; S51.811A Laceration without foreign body of right forearm, initial encounter; S41.111A Laceration without foreign body of right upper arm, initial encounter; W01.0XXA Fall on same level from slipping, tripping and stumbling without subsequent striking against object, initial encounter; E11.649 Type 2 diabetes mellitus with hypoglycemia without coma
CPT/HCPCS: 99285; 96374; 70450; 71260; 74177; 80053; 81003; 82962; 85025; Q9967

== ENCOUNTER 2025-01-27 08:40 | Emergency (ER) | payer OTHER, SELFPAY ==
[2025-01-27 08:42] VITALS: BP 162/70
--- NOTE | 2025-01-27 09:00 | ED.GENMED ---
History of Present Illness
General
Chief Complaint: Male Genito-Urinary Symptoms
Source: patient, records and spouse
Exam Limitations: none
Time Seen by Provider: 01/27/25 08:50
Nursing documentation reviewed up to this point in time: agreed with
History of Present Illness
History of Present Illness:
74-year-old male with past medical history of COPD, chronic respiratory failure, hyperlipidemia, CHF, pacemaker, BPH, insulin-dependent diabetes who presents to the emergency department with his for evaluation of groin/testicular pain. Patient
reports onset of symptoms 2 days ago and they have been intermittent since then. Reports that sharp pain in the left testicle. No clear triggering or relieving factors noted. He does feel there is some slight swelling in the testicle. He has had
some mild low back pain and radiating pain towards the buttock and leg as well on the left. He denies any dysuria, hematuria, change in urinary frequency. He denies any abdominal pain. Denies any fevers or chills. He did have URI symptoms
recently, PCP treated with azithromycin.
Past History
Past History
ED Past Medical History: COPD, GERD, HTN, Hypercholesterolemia, IDDM and Psychiatric (anxiety)
Review of Systems
Review of Systems
All Other Systems: ROS reviewed and negative except as documented in HPI and ROS
Constitutional: Denies fever
Respiratory: Denies trouble breathing
Cardiac: Denies chest pain
ABD/GI: Denies abdominal pain, nausea or vomiting
: Reports other (Testicular pain); Denies dysuria, frequency, flank pain or bleeding
Musculoskeletal: Reports back pain; Denies neck pain
Neurological: Denies dizzy or headache
Phy Exam
Physical Exam
Physical Exam:
General: Awake, alert, oriented x3; no acute distress
Head: Normocephalic, atraumatic
Eyes: Conjunctiva normal, sclera anicteric
Throat: Airway intact, handling secretions
Neck: Trachea midline, supple without meningismus
Lungs: Clear to auscultation bilaterally, no wheezing, rales, rhonchi
Heart: Regular rate and rhythm, systolic murmur; midline chest scar
Abd: Soft, non distended, nontender
Back: No tenderness in the thoracic or lumbar spine or in the paraspinal regions; no CVA tenderness
: Uncircumcised penis, no objective scrotal swelling, no reproducible testicular tenderness although scrotum overlying the left side slightly red and sensitive to the touch, normal testicular lie, no appreciable hernia
Skin: no rash
Neuro: Motor and sensory intact in the lower extremities
Extremities: Warm and well-perfused
Scores
Heart Failure Risk
Heart Failure Risk Score: Not Applicable
Heart Score for Chest Pain Patients
STEMI patient?: Not applicable
Withdrawal Assessment of Alcohol
Withdrawal Assessment Completed?: Not applicable
Course
Orders/Labs/Results
Orders:
Orders
01/27/25 08:51
Scrotum US [US Scrotum] Urgent
Comment:
Reason For Exam: left testicular swelling, groin pain
01/27/25 09:05
CT Abd/pel Without Iv Or Oral Urgent
Comment:
Reason For Exam: low back and left groin pain
01/27/25 09:24
Urinalysis Reflex To Culture Urgent
Date Specimen was Collected: 01/27/25
Time Specimen was Collected: 09:22
01/27/25 09:39
Complete Blood Count/With Diff Urgent
Comprehensive Metabolic Panel Urgent
Abnormal Lab Results
01/27/25
09:39
RBC 4.59 L 10^6/uL
(4.70-6.10)
Hgb 11.4 L g/dL
(13.0-18.0)
Hct 38.2 L %
(39.0-52.0)
MCH 24.8 L pg
(27.0-31.0)
MCHC 29.8 L g/dL
(33.0-37.0)
RDW 14.9 H %
(11.5-14.5)
Abs Immat Gran (auto) 0.1 H 10^3/uL
(0-0.05)
Absolute Neuts (auto) 6.9 H 10^3/uL
(1.4-6.5)
Immature Gran % 0.7 H %
(0-0.5)
Lymphocytes % 13.0 L %
(20.5-51.1)
Eosinophils % 6.3 H %
(0-6)
Chloride 95 L mmol/L
(98-107)
Carbon Dioxide 39 H mmol/L
(22-30)
Glucose 69 L mg/dl
(70-99)
01/27/25 09:39
01/27/25 09:39
Vital Signs
Initial and Last Documented VS:
Initial Vital Signs
Temp Pulse Resp BP Pulse Ox
37.2 C 72 18 162/70 92
01/27/25 08:42 01/27/25 08:42 01/27/25 08:42 01/27/25 08:42 01/27/25 08:42
Last Documented Vital Signs
Temp Pulse Resp BP Pulse Ox
37.2 C 76 31 127/71 97
01/27/25 08:42 01/27/25 11:36 01/27/25 11:36 01/27/25 11:36 01/27/25 09:00
MDM/Problems Addressed
Differential Diagnosis Includes:
Epididymitis, orchitis, testicular torsion, UTI, inguinal hernia, nephrolithiasis, radiculopathy/sciatica
MDM/Problems Addressed:
74-year-old male presents for evaluation of left groin/testicular pain; he also has some back pain and shooting pains in the buttock and left leg. Hypertensive otherwise normal vitals. Physical exam as above. Plan to check labs including a CBC
and a CMP. Check urinalysis. Check scrotal ultrasound. Check CT abdomen pelvis. Reassess after the above.
Labs reviewed: CBC shows marginal anemia, CMP no clinically significant abnormalities�borderline glucose but patient is taking p.o. His urinalysis is negative for infection. CT abdomen pelvis shows no acute pathology. Scrotal ultrasound shows
some nonspecific left scrotal edema but normal testicle. No torsion. Suspect that this is a scrotal cellulitis; likely some element of sciatica contributing to radicular symptoms. Nothing today to suggest that this is more severe infection such
as Imani's gangrene�he is nontoxic, afebrile, no leukocytosis, very localized symptoms without extension to the perineum. Discussed with urology will cover with antibiotics, follow-up in the office. Patient very comfortable with this plan.
Chronic conditions affecting care:
Diabetes
Acute Exacerbation and/or Progression of Chronic Illness:
Acutely hypertensive
Acute Exacerbation and/or Progression of Chronic Illness: HTN
*Radiology
Radiology exam reviewed: radiology read reviewed
*Pulse Oximetry
Patient hypoxic: no
*Critical Care Note
Total Time (30-74mins, 75-104mins- exclusive of procedures): Not Applicable
Data Reviewed
Source: patient, records and spouse
Patient Management
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
ED Attending Note
-
Portions of this chart may have been created with voice recognition software.� Occasional wrong word or��sound alike� substitutions may have occurred due to the inherent limitations of voice recognition software.
Discharge Plan
Departure
Patient Disposition: Home (Routine Discharge)
Date of Disposition: 01/27/25
Time of Disposition: 12:57
Patient with high blood pressure during this ER visit?: Yes
Discharge Problem:
Cellulitis of scrotum, Sciatica
Instructions: Cellulitis (skin infection) in adults - ED discharge instructions, Sciatica - ED discharge instructions
Prescriptions:
New
clindamycin HCl 150 mg capsule
450 mg PO TID 7 Days Qty: 63 0RF
No Action
prednisone 10 mg tablet
10 mg PO DAILY
methadone 10 mg tablet
20 mg PO BID
clopidogrel 75 mg tablet
75 mg PO DAILY
paroxetine HCl 20 mg tablet
30 mg PO DAILY
omeprazole 20 mg capsule,delayed release(DR/EC)
20 mg PO DAILY
finasteride 5 mg tablet
5 mg PO DAILY
diazepam 5 mg tablet
5 mg PO QID
ezetimibe 10 mg tablet
10 mg PO HS
insulin aspart U-100 [Novolog FlexPen U-100 Insulin] 100 unit/mL (3 mL) insulin pen
0 sliding scale dose SC MEALS
Patient Comments:
08/05/2024: Variable of 15 units
insulin glargine [Lantus Solostar U-100 Insulin] 100 unit/mL (3 mL) insulin pen
15 - 30 unit SC HS
roflumilast 500 mcg tablet
500 mcg PO DAILY
furosemide 40 mg tablet
80 mg PO DAILY
diltiazem HCl 240 mg capsule,extended release 24hr
240 mg PO DAILY
tamsulosin 0.4 mg Capsule
0.4 mg PO HS
pravastatin 20 mg tablet
20 mg PO HS
oxycodone 10 mg tablet
10 mg PO TID PRN (Reason: Pain) Qty: 0 0RF
ipratropium-albuterol 0.5 mg-3 mg(2.5 mg base)/3 mL Solution For Nebulization
3 ml INHALATION QID
ciclopirox 8 % Solution
1 applic TOPICAL HS
quetiapine 200 mg tablet
50 mg PO HS
diltiazem HCl 120 mg capsule,extended release 24hr
120 mg PO BID
Referrals:
Dionte William MD [Active] - Call in 1-3 days for appt (Call Dr. William tomorrow morning to schedule close follow-up in the office)
Cassia Mckeon MD [Family Provider] -
Activity Restrictions/Additional Instructions:
Thank you for visiting the Emergency Department at [facility].
1. Please schedule a follow up appointment as directed. Call first thing tomorrow morning to make an appointment.
2. If indicated, please take your medications as instructed and indicated on discharge paperwork.
3. If any of your symptoms do not improve, or persist, or become more severe within 6-12 hours, please return to the emergency department for further care.
4. Please return to the emergency department if you develop a headache, neck pain/stiffness, fever greater than 100.4F, chest pain, shortness of breath, persistent nausea, vomiting, slurred speech, difficulty walking, numbness/tingling, weakness,
signs of infection or any other symptoms that are worrisome to you.
Please call [phone] if you have any questions.
Interventions
Interventions:
*Risk Screen - Suicide Last Done: 01/27/25 08:42
*General Assessment Last Done: 01/27/25 08:42
*Neglect/Abuse Screening Last Done: 01/27/25 08:42
ED-Male Genitourinary Assessment Last Done: 01/27/25 08:58
Discharge Date and Time
Print Language: NEPALI
[2025-01-27 09:31] LABS: Urine Albumin Negative (Neg - Trace); Urine Bilirubin Negative (Negative); Urine Character Clear (Clear); Urine Glucose Negative (Negative); Urine Ketone Negative (Negative); Urine Leukocyte Negative (Negative); Urine Nitrite Negative (Negative); Urine Occult Blood Negative (Negative); Urine Urobilinogen Negative (Neg - 1+)
[2025-01-27 09:35] LABS: Urine Color Yellow
[2025-01-27 09:49] LABS: % Basophils 0.6 % (0-2); % Eosinophils 6.3 % (0-6); % Immature Granulocytes 0.7 % (0-0.5); % Monocytes 5.5 % (1.7-9.3); % Neutrophils 73.9 % (42.2-75.2); Absolute Basophils 0.1 10^3/uL (0-0.2); Absolute Eosinophils 0.6 10^3/uL (0-0.7); Absolute Immature Granulocytes 0.1 10^3/uL (0-0.05); Absolute Lymphocytes 1.2 10^3/uL (1.2-3.4); Absolute Monocytes 0.5 10^3/uL (0.1-0.6); Absolute Neutrophils 6.9 10^3/uL (1.4-6.5); Hematocrit 38.2 % (39.0-52.0); Hemoglobin 11.4 g/dL (13.0-18.0); Mean Corp Hgb Conc. 29.8 g/dL (33.0-37.0); Mean Corpuscular Hgb 24.8 pg (27.0-31.0); Mean Corpuscular Volume 83.2 fL (80.0-94.0); Mean Platelet Volume 9.3 fL (7.4-10.4); Nucleated Red Blood Cells % 0 % (-); Platelet Count 278 10^3/uL (130-400); Red Blood Cell Count 4.59 10^6/uL (4.70-6.10); Red Cell Dist. Width 14.9 % (11.5-14.5); White Blood Cell Count 9.4 10^3/uL (4.8-10.8)
[2025-01-27 10:31] LABS: ALT (SGPT) 12 U/L (0-50); AST (SGOT) 23 U/L (17-59); Albumin 3.6 g/dl (3.5-5.0); Alkaline Phosphatase 100 U/L (38-126); Blood Urea Nitrogen 16 mg/dl (9-20); Chloride 95 mmol/L (98-107); Glucose 69 mg/dl (70-99); Potassium 3.7 mmol/L (3.5-5.1); Sodium 142 mmol/L (135-145); Total Bilirubin 0.4 mg/dl (0.2-1.3); Total Protein 6.4 g/dl (6.3-8.2); eGFR > 60.00
[2025-01-27 11:03] LABS: Carbon Dioxide 39 mmol/L (22-30)
[2025-01-27 11:36] VITALS: BP 127/71
[2025-01-27 12:00] VITALS: BP 148/72
[2025-01-27 13:00] VITALS: BP 145/71
[2025-01-27] MEDS: CLEOCIN 450 MG PO (13:16)
== END 2025-01-27 13:33 | disposition home or self-care (01) ==
LOC: EMR 08:40
PROVIDERS: EMERGENCY PHYSICIAN Emergency Medicine; FAMILY PHYSICIAN Family Medicine
DX: N49.2 Inflammatory disorders of scrotum (principal); M54.42 Lumbago with sciatica, left side; E11.9 Type 2 diabetes mellitus without complications; E78.00 Pure hypercholesterolemia, unspecified; D64.9 Anemia, unspecified; I11.0 Hypertensive heart disease with heart failure; I50.9 Heart failure, unspecified; J44.9 Chronic obstructive pulmonary disease, unspecified; N40.0 Benign prostatic hyperplasia without lower urinary tract symptoms; Z79.4 Long term (current) use of insulin; Z95.0 Presence of cardiac pacemaker
CPT/HCPCS: 99284; 74176; 76870; 80053; 81003; 85025; 93976

== ENCOUNTER 2025-07-04 16:29 | Emergency (ER) | payer OTHER, SELFPAY ==
[2025-07-04 16:34] VITALS: BP 165/74
[2025-07-04] MEDS: LET TOPICAL ANESTHETIC GEL 9 ML TOPICAL (19:55)
[2025-07-04 20:56] VITALS: BP 171/101
--- NOTE | 2025-07-04 21:54 | ED.MUSCINJ ---
HPI-Injury
General
Chief Complaint: Fall
Source: patient and spouse
Exam Limitations: none
Time Seen by Provider: 07/04/25 19:29
Nursing documentation reviewed up to this point in time: agreed with
History of Present Illness-Injury
Is this injury a work related problem?: No
Is pt an associate of [facility]?: No
Initial Injury comments:
Patient to the emergency department for evaluation of right volar skin tear. Patient states he tripped over his oxygen tubing 2 days ago and fell at home. He denies hitting his head. No loss of consciousness. Patient reports continued bloody
discharge from wound. He is currently taking Plavix. Brought to the emergency department by for evaluation. He denies any musculoskeletal pain to right arm
Past History
Past History
ED Past Medical History: COPD, GERD, HTN, Hypercholesterolemia, IDDM and Psychiatric (anxiety)
Review of Systems
Review of Systems
Allergies reviewed?: Yes
All Other Systems: ROS reviewed and negative except as documented in HPI and ROS
Constitutional: Reports no symptoms
EENT: Reports no symptoms
Respiratory: Reports no symptoms
Cardiac: Reports no symptoms
ABD/GI: Reports no symptoms
Musculoskeletal: Reports no symptoms
Skin: Reports other (Large skin tear to right volar forearm. Minimal blood on old dressing)
Neurological: Reports no symptoms
Psychiatric: Reports no symptoms
Phy Exam
General Physical Exam
General Presentation: well appearing and no apparent distress
General age: appears stated age
General Skin: warm and dry
General Habitus: normal
General Mental: alert
Musculoskeletal Exam
Musculoskeletal Exam: full ROM and neuro vasc intact
Skin Exam
Skin Exam: normal color, warm/dry and other (Large skin tear noted to right volar forearm. Small amount of bloody drainage noted at site. No signs or symptoms of infection. )
Psychiatric Exam
Psychiatric Exam: normal mood/affect
Injury Course
Orders/Labs/Results
Orders:
Orders
07/04/25 16:36
Forearm, Right 2 View [CR Forearm - Right 2 View] Urgent
Comment:
Reason For Exam: pain
07/04/25 19:52
Lidocaine/Epinephrine/Tetracai [Let Topical Anesthetic Gel] 9 ml .ROUTE .STK-MED ONE
07/04/25 19:54
Lidocaine/Epinephrine/Tetracai [Let Topical Anesthetic Gel] 9 ml TOPICAL NOW STA
*Radiology
Radiology exam reviewed: radiology read reviewed
*Pulse Oximetry
SaO2: 99
Nasal Cannula flow liters per minute: 3
Patient hypoxic: no
*Critical Care Note
Total Time (30-74mins, 75-104mins- exclusive of procedures): Not Applicable
Update Note
Update Note:
Patient to emergency department with complaint of bleeding from skin tear to left forearm. States he fell 2 days ago after tripping over his oxygen tubing denies hitting his head no loss of consciousness. has been performing daily wound care
with Xeroform and dry dressing. Patient reports that wound continues to bleed. He is currently taking Plavix. Wound examined bedside no evidence of infection. Wound clinic cleansed with normal saline and dressed with nonstick dressing and gauze.
[place] wrap applied for light compression. He is discharged home and will follow-up with his family doctor. He was given instructions on signs and symptoms to return to the emergency department and he is agreeable to plan.
ED Attending Note
-
Portions of this chart may have been created with voice recognition software.� Occasional wrong word or��sound alike� substitutions may have occurred due to the inherent limitations of voice recognition software.
Discharge Plan
Departure
Patient Disposition: Home (Routine Discharge)
Date of Disposition: 07/04/25
Time of Disposition: 20:48
Patient with high blood pressure during this ER visit?: No
Condition: Good
Covid-19: Not Applicable
Discharge Problem:
Skin tear of forearm without complication
Instructions: Wound Care (DC)
Prescriptions:
No Action
prednisone 10 mg tablet
10 mg PO DAILY
methadone 10 mg tablet
20 mg PO BID
clopidogrel 75 mg tablet
75 mg PO DAILY
paroxetine HCl 20 mg tablet
30 mg PO DAILY
omeprazole 20 mg capsule,delayed release(DR/EC)
20 mg PO DAILY
finasteride 5 mg tablet
5 mg PO DAILY
diazepam 5 mg tablet
5 mg PO QID
ezetimibe 10 mg tablet
10 mg PO HS
insulin aspart U-100 [Novolog FlexPen U-100 Insulin] 100 unit/mL (3 mL) insulin pen
0 sliding scale dose SC MEALS
Patient Comments:
08/05/2024: Variable of 15 units
insulin glargine [Lantus Solostar U-100 Insulin] 100 unit/mL (3 mL) insulin pen
15 - 30 unit SC HS
roflumilast 500 mcg tablet
500 mcg PO DAILY
furosemide 40 mg tablet
80 mg PO DAILY
diltiazem HCl 240 mg capsule,extended release 24hr
240 mg PO DAILY
tamsulosin 0.4 mg Capsule
0.4 mg PO HS
pravastatin 20 mg tablet
20 mg PO HS
oxycodone 10 mg tablet
10 mg PO TID PRN (Reason: Pain) Qty: 0 0RF
ipratropium-albuterol 0.5 mg-3 mg(2.5 mg base)/3 mL Solution For Nebulization
3 ml INHALATION QID
ciclopirox 8 % Solution
1 applic TOPICAL HS
quetiapine 200 mg tablet
50 mg PO HS
diltiazem HCl 120 mg capsule,extended release 24hr
120 mg PO BID
clindamycin HCl 150 mg capsule
450 mg PO TID 7 Days Qty: 63 0RF
Referrals:
Cassia Mckeon MD [Family Provider, Family Practice] - Follow up in 2-3 days
Interventions
Interventions:
*Risk Screen - Suicide Last Done: 07/04/25 16:34
*General Assessment Last Done: 07/04/25 16:34
*Neglect/Abuse Screening Last Done: 07/04/25 16:34
*ED- Fall Risk Assessment Last Done: 07/04/25 16:34
*ED COVID-19 Vaccine History Last Done: 07/04/25 16:34
*ED Influenza Vaccine History Last Done: 07/04/25 16:34
*Nursing Disposition Last Done: 07/04/25 21:08
ED-Skin Assessment Last Done: 07/04/25 18:50
Discharge Date and Time
Discharge Date/Time: 07/04/25 21:08
Print Language: FRENCH
== END 2025-07-04 21:08 | disposition home or self-care (01) ==
LOC: EMR 16:29
PROVIDERS: EMERGENCY PHYSICIAN Emergency Medicine; FAMILY PHYSICIAN Family Medicine
DX: S51.812A Laceration without foreign body of left forearm, initial encounter (principal); W19.XXXA Unspecified fall, initial encounter; J44.9 Chronic obstructive pulmonary disease, unspecified; K21.9 Gastro-esophageal reflux disease without esophagitis; I10 Essential (primary) hypertension; E78.00 Pure hypercholesterolemia, unspecified; E11.9 Type 2 diabetes mellitus without complications; F41.9 Anxiety disorder, unspecified; Z79.02 Long term (current) use of antithrombotics/antiplatelets; Z79.4 Long term (current) use of insulin
CPT/HCPCS: 99283; 73090